=== PATIENT | male | born 1935 ===

== ENCOUNTER 2020-04-10 15:15 | Inpatient (IN) | payer MEDICARE, BC, OTHER ==
[~2020-04-10 15:15] MED LIST: Iopamidol-370 76% 500 ML 1 ML ONE
[2020-04-10] MEDS ORDERED: HYDROmorphone 0.5 MG/0.5 ML SYRINGE ONE (15:48)
--- NOTE | 2020-04-10 15:59 | RAD ---
XR Chest 1 View Portable HISTORY: Shortness of breath COMPARISON: 11/09/2018 FINDINGS: There are changes of median sternotomy. The heart size is normal. The aorta is tortuous. Th e lungs are well expanded without lobar consolidation, pneumothoraces, amina pulmonary edema or pleural effusions. IMPRESSION: No radiographic evidence of acute cardiopulmonary process.
[2020-04-10] MEDS ORDERED: Albuterol 200 PUFF (6.7GM INHALER) ONE (16:32)
[2020-04-10] MEDS ORDERED: Dexamethasone 10 MG/ML VIAL ONE (16:33)
[2020-04-10 16:37] LABS: #Basophils 0.1 thou/uL (0.0-0.2); #Lymphocytes 0.4 thou/uL (1.20-3.40); #Monocytes 0.3 thou/uL (0.11-0.59); #Neutrophils 6.3 thou/uL (1.40-6.50); %Basophils 0.9 % (0.0-1.0); %Eosinophils 0.2 % (0.0-10.0); %Lymphocytes 5.3 % (21.0-51.0); %Monocytes 3.5 % (0.0-10.0); %Neutrophils 90.2 % (42.0-75.0); Hemoglobin 12.2 g/dL (14.0-18.0); Mean Corpuscular HGB CONC 33.8 g/dL (32.0-36.0); Mean Corpuscular Hemoglobin 31.7 pg (27.0-31.0); Mean Corpuscular Volume 93.8 fL (78.0-98.0); Mean Platelet Volume 7.6 fL (7.4-10.4); Platelet Count 179 thou/uL (130-400); RBC Distribution Width 13.7 % (11.5-14.5); Red Blood Cell (RBC) Count 3.84 mill/uL (4.70-6.10); White Blood Cell (WBC) Count 6.9 thou/uL (4.8-10.8)
[2020-04-10 17:02] LABS: ALT (SGPT) 33 U/L (8-55); AST (SGOT) 59 U/L (5-34); Albumin 3.7 g/dL (3.4-4.8); Alkaline Phosphatase 78 U/L (40-110); Anion Gap 16 mmol/L (10-20); BUN (Urea Nitrogen) 49 mg/dL (8.4-25.7); Bilirubin, Total 0.7 mg/dL (0.2-1.2); Calc. Creatinine Clearance 0 mL/min (70-130); Calcium 9.8 mg/dL (7.8-10.44); Carbon Dioxide 22 mmol/L (23-31); Chloride 103 mmol/L (98-107); Estimated GFR-MDRD 43; Globulin 3.2 g/dL (2.4-3.5); Glucose 118 mg/dL (83-110); Potassium 4.5 mmol/L (3.5-5.1); Protein, Total 6.9 g/dL (5.8-8.1); Sodium 136 mmol/L (136-145)
--- NOTE | 2020-04-10 18:13 | CT ---
CT PULMONARY ANGIOGRAM WITH IV CONTRAST AND 3D POSTPROCESSIN04/10/20 HISTORY: Dyspnea. COVID-19 positive. Worsening cough and shortness of breath. FINDINGS: There is good contrast opacification of the pulmonary artery vasculature without filling defects to s uggest pulmonary embolism. There are vascular calcifications without evidence of aneurysmal dilatatio n of the thoracic aorta. There is a 2.3 cm nodule arising from the anterior pole of the right lobe o f the thyroid gland with intrathoracic extension. This would be better evaluated with an ultrasound. No pleural or pericardial effusions are seen. No pneumothoraces are identified. There are scattered patchy ground glass opacities in the lung field s bilaterally. There are degenerative changes in the spine. Upper abdominal tomograms demonstrate a 1 cm cyst in the left lobe of the liver. IMPRESSION: 1. No CT evidence of pulmonary embolism. 2. Findings are consistent with COVID-19 pneumonia. POS: BRIGIDA
[2020-04-10] MEDS ORDERED: Dexamethasone 10 MG in Sodium Chloride 0.9% 50 ML IVPB SCH (21:00)
--- NOTE | 2020-04-10 21:04 | PDOC.HHP ---
Hospitalist HPI - History of Present Illness Dyspnea History of Present Illness: This is an 84-year-old male patient with a history of CAD status post CABG, who was recently diagnosed with COVID about 7 days ago. He started noticing worsening shortness of breath, cough and dyspnea. He denies any chest pain fever, headache, diarrhea, dysuria frequency. Came to the ED for further evaluation. As presentation his troponin was 0.012, BNP 36, he was however requiring up to 4 L of oxygen.. Chest x-ray showed no significant acute changes. His d-dimer was however elevated and he had a CTA which was negative for pulmonary embolism. However there was scattered patchy ground glass infiltrates consistent with COVID In the ED he received hydromorphone, Proventil, Levaquin, Decadron and normal saline. Hospitalist team was consulted to admit. Of note patient's also has COVID and is recovering. He also notes that his son has recovered from COVID. Hospitalist ROS - Review of Systems Constitutional: denies: fever, chills, sweats, weakness Respiratory: reports: cough, shortness of breath, SOB with excertion Cardiovascular: denies: chest pain, palpitations, orthopnea, paroxysmal noc. dyspnea Genitourinary: denies: dysuria, frequency, incontinence, hematuria Neurological: denies: weakness, numbness, incoordination, change in speech - Medication Medications: No known drug allergies. Aspirin 81mg daily Losartan 25mg daily Atorvastatin 80mg daily Allopurinol 300mg daily Metoprolol 25mg daily Hospitalist History - Past Medical History Cardiac: reports: CAD - Family History Other Family History: Lives with family - Social History Activity level: independent ambulation - Exam General - other findings: Patient on oxygen by nasal cannula. No acute distress. Heart - other findings: S1-S2 present and normal. No murmurs gallops or rubs Respiratory: wheezes Respiratory - other findings: Entry appears adequate bilaterally. Extremities: no cyanosis, no edema Hospitalist Results - Labs Result Diagrams: 04/12/20 03:14 04/11/20 16:21 Lab results: WBC 6.9 thou/uL (4.8-10.8) 04/10/20 15:50 Hgb 12.2 g/dL (14.0-18.0) L 04/10/20 15:50 Hct 36.0 % (42.0-52.0) L 04/10/20 15:50 MCV 93.8 fL (78.0-98.0) 04/10/20 15:50 Plt Count 179 thou/uL (130-400) 04/10/20 15:50 Neutrophils % 90.2 % (42.0-75.0) H 04/10/20 15:50 Sodium 136 mmol/L (136-145) 04/10/20 15:50 Potassium 4.5 mmol/L (3.5-5.1) 04/10/20 15:50 Chloride 103 mmol/L (98-107) 04/10/20 15:50 Carbon Dioxide 22 mmol/L (23-31) L 04/10/20 15:50 BUN 49 mg/dL (8.4-25.7) H 04/10/20 15:50 Creatinine 1.55 mg/dL (0.7-1.3) H 04/10/20 15:50 Glucose 118 mg/dL (83-110) H 04/10/20 15:50 Calcium 9.8 mg/dL (7.8-10.44) 04/10/20 15:50 Total Bilirubin 0.7 mg/dL (0.2-1.2) 04/10/20 15:50 AST 59 U/L (5-34) H 04/10/20 15:50 ALT 33 U/L (8-55) 04/10/20 15:50 Alkaline Phosphatase 78 U/L (40-110) 04/10/20 15:50 Troponin I 0.012 ng/mL (< 0.028) 04/10/20 15:50 B-Natriuretic Peptide 36.0 pg/mL (0-100) 04/10/20 15:50 Serum Total Protein 6.9 g/dL (5.8-8.1) 04/10/20 15:50 Albumin 3.7 g/dL (3.4-4.8) 04/10/20 15:50 Hospitalist H&P A/P - Plan Plan: This is an 84-year-old male patient with a history of coronary artery disease status post CABG who presents with worsening shortness of breath with a new diagnosis of COVID. Dyspnea Community-acquired pneumonia versus COVID pneumonia Started on Decadron Consider starting anticoagulation as d-dimer is elevated Continue antibiotics ID consult in a.m. Coronary artery disease Currently asymptomatic continue home meds We will monitor. VTE prophylaxisLovenox
[2020-04-11] MEDS: Guaifenesin DM 100-10/5 ML UDCUP PO PRN ×2 (03:08→20:30)
[2020-04-11] MEDS: Melatonin 3 MG TAB PO PRN (03:09)
[2020-04-11 06:07] LABS: #Lymphocytes 0.3 thou/uL (1.20-3.40); #Monocytes 0.2 thou/uL (0.11-0.59); #Neutrophils 5.8 thou/uL (1.40-6.50); %Basophils 0.6 % (0.0-1.0); %Eosinophils 0.5 % (0.0-10.0); %Lymphocytes 5.4 % (21.0-51.0); %Monocytes 2.7 % (0.0-10.0); %Neutrophils 90.8 % (42.0-75.0); Hemoglobin 12.9 g/dL (14.0-18.0); Mean Corpuscular HGB CONC 30.8 g/dL (32.0-36.0); Mean Corpuscular Volume 94.4 fL (78.0-98.0); Mean Platelet Volume 7.7 fL (7.4-10.4); Platelet Count 120 thou/uL (130-400); RBC Distribution Width 13.9 % (11.5-14.5); Red Blood Cell (RBC) Count 4.43 mill/uL (4.70-6.10); White Blood Cell (WBC) Count 6.4 thou/uL (4.8-10.8)
[2020-04-11 06:19] LABS: Anion Gap 17 mmol/L (10-20); BUN (Urea Nitrogen) 52 mg/dL (8.4-25.7); Calc. Creatinine Clearance 40 mL/min (70-130); Calcium 8.6 mg/dL (7.8-10.44); Carbon Dioxide 17 mmol/L (23-31); Chloride 105 mmol/L (98-107); Estimated GFR-MDRD 44; Glucose 171 mg/dL (83-110); Potassium 4.1 mmol/L (3.5-5.1); Sodium 135 mmol/L (136-145)
[2020-04-11] MEDS ORDERED: cefTRIAXone\\ROCEPHIN 1 GM in Sodium Chloride 0.9% 100 ML IVPB SCH (07:30)
[2020-04-11] MEDS ORDERED: Azithromycin 500 MG in Sodium Chloride 0.9% 250 ML 250 ML IVPB SCH (09:00)
[2020-04-11] MEDS ORDERED: Enoxaparin Sodium 80 MG/0.8 ML SYRINGE SC SCH (09:00)
[2020-04-11] MEDS ORDERED: Enoxaparin Sodium 40 MG/0.4 ML SYRINGE SC SCH (09:00)
[2020-04-11] MEDS: Sodium Chloride 0.9% 1,000 ML IV SCH ×2 (09:42→17:51)
[2020-04-11 11:11] LABS: Hemoglobin A1c 5.5 % (4.0-6.0)
[2020-04-11] MEDS ORDERED: REMDESIVIR (EUA) 200 MG in Sodium Chloride 0.9% 250 ML 210 ML IV SCH (16:30)
[2020-04-11 17:04] LABS: Anion Gap 14 mmol/L (10-20); BUN (Urea Nitrogen) 51 mg/dL (8.4-25.7); Calc. Creatinine Clearance 43 mL/min (70-130); Calcium 8.4 mg/dL (7.8-10.44); Carbon Dioxide 18 mmol/L (23-31); Chloride 107 mmol/L (98-107); Estimated GFR-MDRD 47; Glucose 135 mg/dL (83-110); Potassium 4.2 mmol/L (3.5-5.1); Sodium 135 mmol/L (136-145)
[2020-04-11] MEDS: Enoxaparin Sodium 40 MG/0.4 ML SYRINGE SC SCH (20:21)
--- NOTE | 2020-04-11 21:24 | CON ---
DATE OF CONSULTATION: 04/11/2020 REASON FOR CONSULTATION: COVID pneumonia. HISTORY OF PRESENT ILLNESS: This is 84 years old, first admission to this hospital, has a history of hypertension, coronary artery disease with prior bypass graft surgery, who developed sore throat, general malaise, and cough about 10 days before admission, was tested for COVID positive about 5 days before, and due to progression of dyspnea, he was admitted. His CT of chest showed ground-glass opacities scattered diffusely through the lung haji. The patient has been started on Rocephin, azithromycin, and O2 per nasal cannula at 2.5 L/minute, is saturating at 95%. Currently, Mr. Hill is awake. He has quite a bit of hearing impairment, but he is oriented, follows commands. He states that his illness again started about 10 days before and as noted and denies any headaches, visual symptoms. Sore throat still there, somewhat coughing intermittently, mildly dyspneic. No chest pain. No abdominal pain. No diarrhea. No genitourinary symptoms. No joint symptoms. No neurological symptoms. PAST MEDICAL HISTORY: 1. Coronary artery disease. 2. Hypertension. 3. Hyperlipidemia. 4. Bypass graft surgery x4. ALLERGIES: NONE. MEDICATIONS: He had been on; 1. Lipitor. 2. Losartan. 3. Metoprolol. 4. Aspirin. Now, he is on; 1. Rocephin. 2. Azithromycin. 3. Decadron, was given 1 dose I think. 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 He is never a smoker. Drinks occasionally. . [place] in the area. PHYSICAL EXAMINATION: VITAL SIGNS: He is saturating at 95% with 2.5 L nasal cannula, temperature is normal, BP 120/70, heart rate 68, respiratory rate 18. SKIN: Normal peripheral IV access. He is voiding in the urinal. No lymphadenopathy. HEENT: Ocular movements conjugate. Sclerae white. Nasal passages patent. Oral cavity normal. NECK: Supple. LUNGS: Fairly symmetric air entry with few crackles at the bases. HEART: S1 and S2. Regular rate. No S3 or S4. ABDOMEN: Soft. Not distended or tender. No ascites. No bladder distention. No genital abnormalities. EXTREMITIES: No joint inflammatory activity. No edema. Pulses 1+ in dorsalis pedis. Plantar responses are flexor and he moves all extremities equally. He is awake, oriented, follows commands. Hearing impairment makes a little difficulty interview. LABORATORY DATA: D-dimer 0.94 and 0.89. White cell count 6.4, hemoglobin 12.9, platelets 120,000, neutrophil percentage 90%, and ferritin was 1600. AST 59, creatinine 1.53, GFR at 44. Sodium 135, albumin 3.7. CT with diffuse ground- glass opacities, quite widespread, and more concentrated in lower lung haji. ASSESSMENT: 1. Hypertension. 2. Coronary artery disease. 3. Moderate to severe COVID pneumonia at 10 days of illness. DISCUSSION: The patient will be started on remdesivir and will receive convalescent plasma. Increase the enoxaparin dose to b.i.d. Monitor ferritin, CRP, and D- dimer every day. Decadron 6 mg daily, he is in the middle of the second week and he is going to be at the inflammatory phase of his illness, further deterioration may happen quickly and he may need a high-flow oxygen and even mechanical ventilation in the next few days or he may turn around quickly and he would be able to be discharged in the next few days. We will see how he does in the next 48 hrs. Job ID: [id number] [facility]
--- NOTE | 2020-04-12 00:57 | PDOC.HOSPP ---
- Subjective Encounter Date: 04/11/20 Subjective: Patient was seen and examined in bed. He had a good night. Had mild dyspnea and occasional cough Denies any chest pain - Objective Vital Signs & Weight: Vital Signs (12 hours) Temp Pulse Resp BP Pulse Ox 04/12/20 00:48 97.9 F 92 21 H 91 L 04/11/20 20:20 97.9 F 65 20 103/65 93 L 04/11/20 18:09 98.1 F 95 22 H 127/66 96 Weight Weight 172 lb I&O: 04/10/20 04/11/20 04/12/20 06:59 06:59 06:59 Intake Total 500 1240 Output Total 400 Balance 100 1240 Result Diagrams: 04/12/20 03:14 04/11/20 16:21 Hospitalist ROS - Medication Medications: Active Medications Generic Name Dose Route Start Last Admin Trade Name Freq PRN Reason Stop Dose Admin Enoxaparin Sodium 40 mg 04/11/20 21:00 04/11/20 20:21 Enoxaparin Sodium 40 Mg/0.4 Ml Syringe SC 40 mg BID PATRICK Administration Guaifenesin/Dextromethorphan 15 ml 04/11/20 02:57 04/11/20 20:30 Guaifenesin Dm 100-10/5 Ml Udcup PO 15 ml Q4H PRN Administration Cough Sodium Chloride 1,000 mls @ 100 mls/hr 04/11/20 09:30 04/11/20 17:51 Normal Saline 0.9% IV 1,000 mls .Q10H PATRICK Administration Melatonin 3 mg 04/11/20 02:57 04/11/20 03:09 Melatonin 3 Mg Tab PO 3 mg HS PRN Administration Insomnia - Exam General Appearance: awake alert Heart - other findings: S1-S2 present and normal. No murmurs gallops or rubs. Respiratory - other findings: Reduced air entry bilaterally. Occasional wheezing Gastrointestinal - other findings: Soft, nontender, bowel sounds present and normal. Extremities - other findings: No edema noted. Hosp A/P - Plan 84-year-old male patient with a history of coronary today status post CABG on admission on account of COVID pneumonia Currently being managed by ID. COVID pneumonia Currently on 2 to 3 L oxygen per nasal cannula Plans to tarting on remdesevir, plasma, lovenox, and follow-up labs ID on board. Coronary disease This is stable Asymptomatic Continue monitoring.
[2020-04-12 03:27] LABS: #Basophils 0.1 thou/uL (0.0-0.2); #Lymphocytes 0.6 thou/uL (1.20-3.40); #Monocytes 0.4 thou/uL (0.11-0.59); #Neutrophils 14.2 thou/uL (1.40-6.50); %Basophils 0.4 % (0.0-1.0); %Eosinophils 0.1 % (0.0-10.0); %Lymphocytes 3.7 % (21.0-51.0); %Monocytes 2.7 % (0.0-10.0); %Neutrophils 93.1 % (42.0-75.0); Hemoglobin 11.5 g/dL (14.0-18.0); Mean Corpuscular HGB CONC 33.5 g/dL (32.0-36.0); Mean Corpuscular Hemoglobin 31.5 pg (27.0-31.0); Mean Corpuscular Volume 94.3 fL (78.0-98.0); Mean Platelet Volume 7.4 fL (7.4-10.4); Platelet Count 193 thou/uL (130-400); RBC Distribution Width 13.8 % (11.5-14.5); Red Blood Cell (RBC) Count 3.64 mill/uL (4.70-6.10); White Blood Cell (WBC) Count 15.3 thou/uL (4.8-10.8)
[2020-04-12 03:48] LABS: ALT (SGPT) 52 U/L (8-55); AST (SGOT) 72 U/L (5-34); Albumin 3.2 g/dL (3.4-4.8); Alkaline Phosphatase 70 U/L (40-110); Bilirubin, Direct 0.3 mg/dL (0.1-0.3); Bilirubin, Total 0.4 mg/dL (0.2-1.2)
[2020-04-12] MEDS: Sodium Chloride 0.9% 1,000 ML IV SCH ×3 (04:15→14:50)
[2020-04-12] MEDS: Guaifenesin DM 100-10/5 ML UDCUP PO PRN (09:47)
[2020-04-12] MEDS: Atorvastatin Calcium 40 MG TAB PO SCH (09:48)
[2020-04-12] MEDS: Allopurinol 300 MG TAB PO SCH (09:48)
[2020-04-12] MEDS: Aspirin Chewable 81 MG TAB PO SCH (09:48)
[2020-04-12] MEDS: Dexamethasone 4 mg/ml Vial SLOW IVP SCH (09:48)
[2020-04-12] MEDS: Enoxaparin Sodium 40 MG/0.4 ML SYRINGE SC SCH ×2 (09:48→20:50)
[2020-04-12] MEDS: Losartan 25 MG TAB PO SCH ×2 (09:48→20:53)
--- NOTE | 2020-04-12 12:22 | EKG ---
Test Reason : SOB Blood Pressure : / mmHG Vent. Rate : 094 BPM Atrial Rate : 094 BPM P-R Int : 146 ms QRS Dur : 106 ms QT Int : 338 ms P-R-T Axes : 016 -38 017 degrees QTc Int : 422 ms Normal sinus rhythm Left axis deviation Incomplete right bundle branch block Minimal voltage criteria for LVH, may be normal variant Nonspecific ST and T wave abnormality Abnormal ECG Confirmed by MEGAN FRANKLIN ([id number]), editorial manager AMY GALINDO ([id number]) on 04/12/2020 12:21:53 PM Referred By: Confirmed By:MEGAN FRANKLIN
--- NOTE | 2020-04-12 12:50 | PDOC.HOSPP ---
- Subjective Encounter Date: 04/12/20 Encounter Time: 12:45 Subjective: f/u for COVID-19 with PNA receiving Remdesivir/Dexamethasone/Lovenox/high flow O2 @ 40L/min. Feels better overall but still SOB. - Objective Vital Signs & Weight: Vital Signs (12 hours) Temp Pulse Resp BP Pulse Ox 04/12/20 11:45 98.1 F 69 20 109/61 96 04/12/20 09:45 98.2 F 80 20 136/71 94 L 04/12/20 04:15 98.8 F 82 22 H 135/75 95 04/12/20 02:39 90 L 04/12/20 01:00 28 H 89 L Weight Weight 172 lb I&O: 04/11/20 04/12/20 04/13/20 06:59 06:59 06:59 Intake Total 500 2740 Output Total 400 Balance 100 2740 Result Diagrams: 04/12/20 03:14 04/11/20 16:21 Additional Labs: Microbiology 04/10/20 20:23 Urine voided Urine Culture - Final 04/10/20 18:30 Venous blood - Right Hand Blood Culture - Preliminary NO GROWTH AT 48 HOURS 04/10/20 18:30 Venous blood - Left Hand Blood Culture - Preliminary NO GROWTH AT 48 HOURS Laboratory Tests 04/10/20 04/10/20 04/11/20 15:50 15:50 05:53 D-Dimer 0.94 H Carbon Dioxide 22 L 17 L Creatinine 1.55 H 1.53 H Hemoglobin A1c Ferritin C-Reactive Protein 04/11/20 04/11/20 04/11/20 10:29 10:29 10:29 D-Dimer 0.89 H Carbon Dioxide Creatinine Hemoglobin A1c 5.5 Ferritin 1619.85 H C-Reactive Protein 04/11/20 04/12/20 04/12/20 16:21 03:14 03:14 D-Dimer Carbon Dioxide Creatinine Hemoglobin A1c Ferritin 1624.06 H C-Reactive Protein 7.78 H 6.04 H 04/12/20 03:14 D-Dimer 0.58 H Carbon Dioxide Creatinine Hemoglobin A1c Ferritin C-Reactive Protein Radiology Reviewed by me: Yes (PCXR - bilat infiltrates) Hospitalist ROS - Medication Medications: Active Medications Generic Name Dose Route Start Last Admin Trade Name Freq PRN Reason Stop Dose Admin Allopurinol 300 mg 04/12/20:00 04/12/20 09:48 Allopurinol 300 Mg Tab PO 300 mg DAILY PATRICK Administration Aspirin 81 mg 04/12/20 09:00 04/12/20 09:48 Aspirin Chewable 81 Mg Tab PO 81 mg DAILY PATRICK Administration Atorvastatin Calcium 80 mg 04/12/20 09:00 04/12/20 09:48 Atorvastatin Calcium 40 Mg Tab PO 80 mg DAILY PATRICK Administration Dexamethasone 6 mg 04/12/20 09:00 04/12/20 09:48 Dexamethasone 4 Mg/Ml Vial SLOW IVP 6 mg DAILY PATRICK Administration Enoxaparin Sodium 40 mg 04/11/20 21:00 04/12/20 09:48 Enoxaparin Sodium 40 Mg/0.4 Ml Syringe SC 40 mg BID PATRICK Administration Guaifenesin/Dextromethorphan 15 ml 04/11/20 02:57 04/12/20 09:47 Guaifenesin Dm 100-10/5 Ml Udcup PO 15 ml Q4H PRN Administration Cough Sodium Chloride 1,000 mls @ 100 mls/hr 04/11/20 09:30 04/12/20 11:35 Normal Saline 0.9% IV 1,000 mls .Q10H PATRICK Administration Losartan Potassium 25 mg 04/12/20 09:00 04/12/20 09:48 Losartan 25 Mg Tab PO 25 mg BID PATRICK Administration Melatonin 3 mg 04/11/20 02:57 04/11/20 03:09 Melatonin 3 Mg Tab PO 3 mg HS PRN Administration Insomnia Metoprolol Succinate 25 mg 04/12/20 09:00 04/12/20 09:48 Metoprolol Succinate Xl 25 Mg Tab PO 25 mg DAILY PATRICK Administration - Exam General Appearance: NAD, awake alert Eye: PERRL, anicteric sclera ENT: normocephalic atraumatic, no oropharyngeal lesions Neck: supple, symmetric, no JVD, no thyromegaly, no lymphadenopathy Heart: RRR, no murmur, no gallops, no rubs, normal peripheral pulses Respiratory: no wheezes, tachypneic Respiratory - other findings: diminished in bases bilat Gastrointestinal: soft, non-tender, non-distended, normal bowel sounds, no palpable masses Extremities: no cyanosis, no clubbing, no edema Skin: normal turgor, no lesions Neurological: cranial nerve grossly intact, no new deficit Musculoskeletal: normal tone, normal strength, no muscle wasting Psychiatric: normal affect, A&O x 3 Hosp A/P (1) Pneumonia due to COVID-19 virus Code(s): U07.1 - COVID-19; J12.89 - OTHER VIRAL PNEUMONIA Status: Acute Plan: Continue pulmonary support, Remdesivir/Convalescent Plasma/Lovenox/Dexamethasone/high-flow O2 (2) Acute respiratory failure with hypoxia Code(s): J96.01 - ACUTE RESPIRATORY FAILURE WITH HYPOXIA Status: Acute Plan: High-flow O2 support, Dexamethasone (3) CKD (chronic kidney disease), stage III Code(s): N18.3 - CHRONIC KIDNEY DISEASE, STAGE 3 (MODERATE) Status: Chronic Plan: Avoid nephrotoxic meds and limit contrast exposure (4) CAD (coronary artery disease) Code(s): I25.10 - ATHSCL HEART DISEASE OF [place] CORONARY ARTERY W/O ANG PCTRS Status: Chronic Plan: Chronic, stable, med mgmt - 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
--- NOTE | 2020-04-12 16:09 | RAD ---
ONE VIEW CHEST: 04/12/20 HISTORY: Shortness of breath. COMPARISON: 04/10/20. FINDINGS: There are increased interstitial and slight patchy air space opacity seen within the lungs bilaterall y in a pattern which can be seen with viral pneumonitis such as COVID-19. The interstitial opacities do appear increased compared to prior study. Postoperative changes related to CABG are again noted. Cardiac silhouette is magnified by projection. No pleural effusion, or pneumothorax is evident. No other interval change. IMPRESSION: Worsening interstitial and patchy air space opacities within the lungs bilaterally suggesting worseni ng viral pneumonitis (COVID-19). POS: MANUEL
[2020-04-12] MEDS: REMDESIVIR (EUA) 100 MG in Sodium Chloride 0.9% 250 ML 230 ML IV SCH (17:03)
[2020-04-12] MEDS: Naproxen 500 MG TAB PO SCH (20:53)
[2020-04-12] MEDS: Benzonatate 100 MG CAP PO PRN (20:54)
[2020-04-13] MEDS: Sodium Chloride 0.9% 1,000 ML IV SCH ×3 (01:00→20:26)
[2020-04-13 06:34] LABS: ALT (SGPT) 42 U/L (8-55); AST (SGOT) 46 U/L (5-34); Albumin 2.9 g/dL (3.4-4.8); Alkaline Phosphatase 64 U/L (40-110); Bilirubin, Direct 0.3 mg/dL (0.1-0.3); Bilirubin, Total 0.4 mg/dL (0.2-1.2); Protein, Total 5.3 g/dL (5.8-8.1)
[2020-04-13] MEDS: Allopurinol 300 MG TAB PO SCH (08:57)
[2020-04-13] MEDS: Losartan 25 MG TAB PO SCH ×2 (08:57→20:25)
[2020-04-13] MEDS: Dexamethasone 4 mg/ml Vial SLOW IVP SCH (08:58)
[2020-04-13] MEDS: Atorvastatin Calcium 40 MG TAB PO SCH (08:58)
[2020-04-13] MEDS: Aspirin Chewable 81 MG TAB PO SCH (08:58)
[2020-04-13] MEDS: Loratadine 10 MG TAB PO SCH (08:58)
[2020-04-13] MEDS: Enoxaparin Sodium 40 MG/0.4 ML SYRINGE SC SCH ×2 (08:59→20:25)
--- NOTE | 2020-04-13 14:25 | PDOC.HOSPP ---
- Subjective Encounter Date: 04/13/20 Encounter Time: 14:15 Subjective: f/u for COVID-19 PNA on high flow O2. s/p IV convalescent plasma. Receiving Remdesivir/Lovenox/Dexamethasone. - Objective Vital Signs & Weight: Vital Signs (12 hours) Temp Pulse Resp BP Pulse Ox 04/13/20 12:42 97.8 F 68 18 162/72 H 94 L 04/13/20 08:30 92 L 04/13/20 03:51 92 L 04/13/20 03:22 98.2 F 60 23 H 157/84 H 92 L Weight Weight 172 lb I&O: 04/12/20 04/13/20 04/14/20 06:59 06:59 06:59 Intake Total 2740 3120 Output Total 300 Balance 2740 2820 Result Diagrams: 04/12/20 03:14 04/11/20 16:21 Additional Labs: Microbiology 04/10/20 20:23 Urine voided Urine Culture - Final 04/10/20 18:30 Venous blood - Right Hand Blood Culture - Preliminary NO GROWTH AT 48 HOURS 04/10/20 18:30 Venous blood - Left Hand Blood Culture - Preliminary NO GROWTH AT 48 HOURS Laboratory Tests 04/10/20 04/10/20 04/11/20 15:50 15:50 05:53 D-Dimer 0.94 H Carbon Dioxide 22 L 17 L Creatinine 1.55 H 1.53 H Hemoglobin A1c Ferritin C-Reactive Protein 04/11/20 04/11/20 04/11/20 10:29 10:29 10:29 D-Dimer 0.89 H Carbon Dioxide Creatinine Hemoglobin A1c 5.5 Ferritin 1619.85 H C-Reactive Protein 04/11/20 04/12/20 04/12/20 16:21 03:14 03:14 D-Dimer Carbon Dioxide Creatinine Hemoglobin A1c Ferritin 1624.06 H C-Reactive Protein 7.78 H 6.04 H 04/12/20 03:14 D-Dimer 0.58 H Carbon Dioxide Creatinine Hemoglobin A1c Ferritin C-Reactive Protein Radiology Reviewed by me: Yes (PCXR - worsening infiltrates bilat(04/12/20)) Hospitalist ROS - Medication Medications: Active Medications Generic Name Dose Route Start Last Admin Trade Name Freq PRN Reason Stop Dose Admin Allopurinol 300 mg 04/12/20 09:00 04/13/20 08:57 Allopurinol 300 Mg Tab PO 300 mg DAILY PATRICK Administration Aspirin 81 mg 04/12/20 09:00 04/13/20 08:58 Aspirin Chewable 81 Mg Tab PO 81 mg DAILY PATRICK Administration Atorvastatin Calcium 80 mg 04/12/20 09:00 04/13/20 08:58 Atorvastatin Calcium 40 Mg Tab PO 80 mg DAILY PATRICK Administration Benzonatate 200 mg 04/12/20 12:57 04/12/20 20:54 Benzonatate 100 Mg Cap PO 200 mg Q6H PRN Administration Cough Dexamethasone 6 mg 04/12/20 09:00 04/13/20 08:58 Dexamethasone 4 Mg/Ml Vial SLOW IVP 6 mg DAILY PATRICK Administration Enoxaparin Sodium 40 mg 04/11/20 21:00 04/13/20 08:59 Enoxaparin Sodium 40 Mg/0.4 Ml Syringe SC 40 mg BID PATRICK Administration Guaifenesin/Dextromethorphan 15 ml 04/11/20 02:57 04/12/20 09:47 Guaifenesin Dm 100-10/5 Ml Udcup PO 15 ml Q4H PRN Administration Cough Sodium Chloride 1,000 mls @ 100 mls/hr 04/11/20 09:30 04/13/20 12:45 Normal Saline 0.9% IV 1,000 mls .Q10H PATRICK Administration Remdesivir 100 mg/ Sodium 250 mls @ 250 mls/hr 04/12/20 17:00 04/12/20 17:03 Chloride IV 04/15/20 17:59 250 mls 1700 PATRICK Administration Loratadine 10 mg 04/13/20 09:00 04/13/20 08:58 Loratadine 10 Mg Tab PO 10 mg DAILY PATRICK Administration Losartan Potassium 25 mg 04/12/20 09:00 04/13/20 08:57 Losartan 25 Mg Tab PO 25 mg BID PATRICK Administration Melatonin 3 mg 04/11/20 02:57 04/11/20 03:09 Melatonin 3 Mg Tab PO 3 mg HS PRN Administration Insomnia Metoprolol Succinate 25 mg 04/12/20 09:00 04/13/20 08:58 Metoprolol Succinate Xl 25 Mg Tab PO 25 mg DAILY PATRICK Administration Naproxen 250 mg 04/12/20 21:00 04/12/20 20:53 Naproxen 500 Mg Tab PO 250 mg HS PATRICK Administration - Exam General Appearance: NAD, awake alert Eye: PERRL, anicteric sclera ENT: normocephalic atraumatic, no oropharyngeal lesions Neck: supple, symmetric, no JVD, no thyromegaly, no lymphadenopathy Heart: RRR, no murmur, no gallops, no rubs, normal peripheral pulses Heart - other findings: S1, S2 Respiratory: no wheezes, no rales, no tachypnea Respiratory - other findings: diminished in bilat haji Gastrointestinal: soft, non-tender, non-distended, normal bowel sounds, no palpable masses Extremities: no cyanosis, no clubbing, no edema Skin: normal turgor, no lesions Neurological: cranial nerve grossly intact, no new deficit Musculoskeletal: normal tone, normal strength, no muscle wasting Psychiatric: normal affect, A&O x 3 Hosp A/P (1) Pneumonia due to COVID-19 virus Code(s): U07.1 - COVID-19; J12.89 - OTHER VIRAL PNEUMONIA Status: Acute Plan: Continue Remdesivir/Lovenox/Dexamethasone, s/p convalescent plasma (2) Acute respiratory failure with hypoxia Code(s): J96.01 - ACUTE RESPIRATORY FAILURE WITH HYPOXIA Status: Acute Plan: High-flow O2 @ 40L (3) CKD (chronic kidney disease), stage III Code(s): N18.3 - CHRONIC KIDNEY DISEASE, STAGE 3 (MODERATE) Status: Chronic (4) CAD (coronary artery disease) Code(s): I25.10 - ATHSCL HEART DISEASE OF [place] CORONARY ARTERY W/O ANG PCTRS Status: Chronic - Plan 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
[2020-04-13] MEDS: REMDESIVIR (EUA) 100 MG in Sodium Chloride 0.9% 250 ML 230 ML IV SCH (17:50)
[2020-04-13] MEDS: Naproxen 500 MG TAB PO SCH (20:25)
[2020-04-13] MEDS: Benzonatate 100 MG CAP PO PRN (20:27)
[2020-04-14 06:13] LABS: ALT (SGPT) 46 U/L (8-55); AST (SGOT) 50 U/L (5-34); Albumin 2.8 g/dL (3.4-4.8); Alkaline Phosphatase 68 U/L (40-110); Bilirubin, Direct 0.2 mg/dL (0.1-0.3); Bilirubin, Total 0.5 mg/dL (0.2-1.2); Protein, Total 5.3 g/dL (5.8-8.1)
[2020-04-14] MEDS: Loratadine 10 MG TAB PO SCH (08:17)
[2020-04-14] MEDS: Aspirin Chewable 81 MG TAB PO SCH (08:17)
[2020-04-14] MEDS: Atorvastatin Calcium 40 MG TAB PO SCH (08:17)
[2020-04-14] MEDS: Losartan 25 MG TAB PO SCH ×2 (08:17→19:55)
[2020-04-14] MEDS: Enoxaparin Sodium 40 MG/0.4 ML SYRINGE SC SCH ×2 (08:18→19:55)
[2020-04-14] MEDS: Allopurinol 300 MG TAB PO SCH (08:18)
[2020-04-14] MEDS: Dexamethasone 4 mg/ml Vial SLOW IVP SCH (08:18)
[2020-04-14] MEDS: Sodium Chloride 0.9% 1,000 ML IV SCH (10:59)
--- NOTE | 2020-04-14 14:30 | PDOC.HOSPP ---
- Subjective Encounter Date: 04/14/20 Encounter Time: 14:30 Subjective: f/u COVID-19 PNA on high-flow NC @ 40L/min. Some desaturations noted with anxiety or movement. - Objective Vital Signs & Weight: Vital Signs (12 hours) Temp Pulse Resp BP BP Pulse Ox 04/14/20 11:45 97.7 F 69 22 H 137/78 94 L 04/14/20 08:30 97.6 F 70 20 160/81 H 94 L 04/14/20 08:00 94 L 04/14/20 06:11 97.9 F 59 L 20 175/73 H 96 Weight Weight 172 lb I&O: 04/13/20 04/14/20 04/15/20 06:59 06:59 06:59 Intake Total 3120 2000 Output Total 300 700 Balance 2820 1300 Result Diagrams: 04/12/20 03:14 04/11/20 16:21 Additional Labs: Microbiology 04/10/20 20:23 Urine voided Urine Culture - Final 04/10/20 18:30 Venous blood - Right Hand Blood Culture - Preliminary NO GROWTH AT 48 HOURS 04/10/20 18:30 Venous blood - Left Hand Blood Culture - Preliminary NO GROWTH AT 48 HOURS Laboratory Tests 04/10/20 04/10/20 04/11/20 15:50 15:50 05:53 D-Dimer 0.94 H Carbon Dioxide 22 L 17 L Creatinine 1.55 H 1.53 H Hemoglobin A1c Ferritin C-Reactive Protein 04/11/20 04/11/20 04/11/20 10:29 10:29 10:29 D-Dimer 0.89 H Carbon Dioxide Creatinine Hemoglobin A1c 5.5 Ferritin 1619.85 H C-Reactive Protein 04/11/20 04/12/20 04/12/20 16:21 03:14 03:14 D-Dimer Carbon Dioxide Creatinine Hemoglobin A1c Ferritin 1624.06 H C-Reactive Protein 7.78 H 6.04 H 04/12/20 03:14 D-Dimer 0.58 H Carbon Dioxide Creatinine Hemoglobin A1c Ferritin C-Reactive Protein Hospitalist ROS - Medication Medications: Active Medications Generic Name Dose Route Start Last Admin Trade Name Freq PRN Reason Stop Dose Admin Allopurinol 300 mg 04/12/20 09:00 04/14/20 08:18 Allopurinol 300 Mg Tab PO 300 mg DAILY PATRICK Administration Aspirin 81 mg 04/12/20 09:00 04/14/20 08:17 Aspirin Chewable 81 Mg Tab PO 81 mg DAILY PATRICK Administration Atorvastatin Calcium 80 mg 04/12/20 09:00 04/14/20 08:17 Atorvastatin Calcium 40 Mg Tab PO 80 mg DAILY PATRICK Administration Benzonatate 200 mg 04/12/20 12:57 04/13/20 20:27 Benzonatate 100 Mg Cap PO 200 mg Q6H PRN Administration Cough Dexamethasone 6 mg 04/12/20 09:00 04/14/20 08:18 Dexamethasone 4 Mg/Ml Vial SLOW IVP 6 mg DAILY PATRICK Administration Enoxaparin Sodium 40 mg 04/11/20 21:00 04/14/20 08:18 Enoxaparin Sodium 40 Mg/0.4 Ml Syringe SC 40 mg BID PATRICK Administration Guaifenesin/Dextromethorphan 15 ml 04/11/20 02:57 04/12/20 09:47 Guaifenesin Dm 100-10/5 Ml Udcup PO 15 ml Q4H PRN Administration Cough Sodium Chloride 1,000 mls @ 100 mls/hr 04/11/20 09:30 04/14/20 10:59 Normal Saline 0.9% IV 1,000 mls .Q10H PATRICK Administration Remdesivir 100 mg/ Sodium 250 mls @ 250 mls/hr 04/12/20 17:00 04/13/20 17:50 Chloride IV 04/15/20 17:59 250 mls 1700 PATRICK Administration Loratadine 10 mg 04/13/20 09:00 04/14/20 08:17 Loratadine 10 Mg Tab PO 10 mg DAILY PATRICK Administration Losartan Potassium 25 mg 04/12/20 09:00 04/14/20 08:17 Losartan 25 Mg Tab PO 25 mg BID PATRICK Administration Melatonin 3 mg 04/11/20 02:57 04/11/20 03:09 Melatonin 3 Mg Tab PO 3 mg HS PRN Administration Insomnia Metoprolol Succinate 25 mg 04/12/20 09:00 04/14/20 08:18 Metoprolol Succinate Xl 25 Mg Tab PO 25 mg DAILY PATRICK Administration Naproxen 250 mg 04/12/20 21:00 04/13/20 20:25 Naproxen 500 Mg Tab PO 250 mg HS PATRICK Administration - Exam General Appearance: NAD, awake alert Eye: PERRL, anicteric sclera ENT: normocephalic atraumatic, no oropharyngeal lesions Neck: supple, symmetric, no JVD, no thyromegaly, no lymphadenopathy Heart: RRR, no murmur, no gallops, no rubs, normal peripheral pulses Heart - other findings: S1, S2 Respiratory: CTAB, no rales, no ronchi, no tachypnea Gastrointestinal: soft, non-tender, non-distended, normal bowel sounds, no palpable masses Extremities: no cyanosis, no clubbing, no edema Skin: normal turgor, no lesions Neurological: cranial nerve grossly intact, no new deficit Musculoskeletal: normal tone, normal strength, no muscle wasting Psychiatric: normal affect, A&O x 3 Hosp A/P (1) Pneumonia due to COVID-19 virus Code(s): U07.1 - COVID-19; J12.89 - OTHER VIRAL PNEUMONIA Status: Acute Plan: Continue Remdesivir/Lovenox/Dexamethasone/O2 support (2) Acute respiratory failure with hypoxia Code(s): J96.01 - ACUTE RESPIRATORY FAILURE WITH HYPOXIA Status: Acute Plan: Continue high-flow O2 and wean as clinically indicated (3) CKD (chronic kidney disease), stage III Code(s): N18.3 - CHRONIC KIDNEY DISEASE, STAGE 3 (MODERATE) Status: Chronic Plan: Stable, saline lock IVF's (4) CAD (coronary artery disease) Code(s): I25.10 - ATHSCL HEART DISEASE OF [place] CORONARY ARTERY W/O ANG PCTRS Status: Chronic - Plan 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
--- NOTE | 2020-04-14 17:45 | PRG ---
DATE OF SERVICE: 04/14/2020 SUBJECTIVE: The patient is sitting by the bedside, feeling better. He is able to take deeper breaths. He has no abdominal pain. Still with some anosmia. No diarrhea. Voiding without difficulty. OBJECTIVE: VITAL SIGNS: He has been afebrile. BP 115/68, heart rate 62, respiratory rate 22, O2 saturation 96 at 35 high-flow O2 nasal cannula. LUNGS: With few crackles at the bases, but pretty good respiratory excursions. The upper segments are clear, right and left lung haji. HEART: S1 and S2, regular rate. ABDOMEN: Soft, not distended. EXTREMITIES: No edema. LABORATORY DATA: White cell count 15.3 two days ago, hemoglobin 11, platelets 193. D-dimer is down to 0.58. Ferritin went up to 1624, has not been repeated since. Liver profile is pretty good, the only abnormality is AST at 50. CRP is down to 6.04. ASSESSMENT AND DISCUSSION: Hypertension, coronary artery disease, moderate to severe COVID pneumonia, status post remdesivir and plasma, is currently on Decadron , about 30% improvement thus far. Continue monitoring inflammatory markers. Job ID: [id number] [facility]
[2020-04-14] MEDS: REMDESIVIR (EUA) 100 MG in Sodium Chloride 0.9% 250 ML 230 ML IV SCH (18:15)
[2020-04-14] MEDS: Naproxen 500 MG TAB PO SCH (19:56)
[2020-04-15] MEDS: ALPRAZolam 0.25 MG TAB PO PRN ×3 (03:31→21:02)
[2020-04-15 06:14] LABS: ALT (SGPT) 47 U/L (8-55); AST (SGOT) 44 U/L (5-34); Albumin 2.7 g/dL (3.4-4.8); Alkaline Phosphatase 70 U/L (40-110); Bilirubin, Direct 0.3 mg/dL (0.1-0.3); Bilirubin, Total 0.5 mg/dL (0.2-1.2); Protein, Total 4.9 g/dL (5.8-8.1)
[2020-04-15] MEDS: Dexamethasone 4 mg/ml Vial SLOW IVP SCH (08:29)
[2020-04-15] MEDS: Enoxaparin Sodium 40 MG/0.4 ML SYRINGE SC SCH ×2 (08:29→21:03)
[2020-04-15] MEDS: Atorvastatin Calcium 40 MG TAB PO SCH (08:30)
[2020-04-15] MEDS: Aspirin Chewable 81 MG TAB PO SCH (08:30)
[2020-04-15] MEDS: Losartan 25 MG TAB PO SCH ×2 (08:30→21:02)
[2020-04-15] MEDS: Allopurinol 300 MG TAB PO SCH (08:30)
[2020-04-15] MEDS: Loratadine 10 MG TAB PO SCH (08:30)
[2020-04-15] MEDS ORDERED: Lorazepam 2 MG/ML VIAL ONE (11:34)
--- NOTE | 2020-04-15 15:34 | PDOC.HOSPP ---
- Subjective Encounter Date: 04/15/20 Encounter Time: 15:15 Subjective: f/u for COVID PNA on high-flow NC down to FIO2 35%. Pt becoming increasingly confused, agitated and pulling off NC per nursing. - Objective Vital Signs & Weight: Vital Signs (12 hours) Temp Pulse Resp BP BP Pulse Ox 04/15/20 11:45 63 24 H 128/83 93 L 04/15/20 08:53 92 L 04/15/20 08:52 97.5 F L 92 24 H 126/62 92 L 04/15/20 07:30 91 L Weight Weight 172 lb I&O: 04/14/20 04/15/20 04/16/20 06:59 06:59 06:59 Intake Total 2000 1200 Output Total 700 700 Balance 1300 500 Result Diagrams: 04/12/20 03:14 04/11/20 16:21 Additional Labs: Microbiology 04/10/20 20:23 Urine voided Urine Culture - Final 04/10/20 18:30 Venous blood - Right Hand Blood Culture - Preliminary NO GROWTH AT 48 HOURS 04/10/20 18:30 Venous blood - Left Hand Blood Culture - Preliminary NO GROWTH AT 48 HOURS Laboratory Tests 04/10/20 04/10/20 04/11/20 15:50 15:50 05:53 D-Dimer 0.94 H Carbon Dioxide 22 L 17 L Creatinine 1.55 H 1.53 H Hemoglobin A1c Ferritin C-Reactive Protein 04/11/20 04/11/20 04/11/20 10:29 10:29 10:29 D-Dimer 0.89 H Carbon Dioxide Creatinine Hemoglobin A1c 5.5 Ferritin 1619.85 H C-Reactive Protein 04/11/20 04/12/20 04/12/20 16:21 03:14 03:14 D-Dimer Carbon Dioxide Creatinine Hemoglobin A1c Ferritin 1624.06 H C-Reactive Protein 7.78 H 6.04 H 04/12/20 03:14 D-Dimer 0.58 H Carbon Dioxide Creatinine Hemoglobin A1c Ferritin C-Reactive Protein Hospitalist ROS - Medication Medications: Active Medications Generic Name Dose Route Start Last Admin Trade Name Freq PRN Reason Stop Dose Admin Allopurinol 300 mg 04/12/20 09:00 04/15/20 08:30 Allopurinol 300 Mg Tab PO 300 mg DAILY PATRICK Administration Alprazolam 0.25 mg 04/15/20 03:20 04/15/20 10:48 Alprazolam 0.25 Mg Tab PO 0.25 mg TIDPRN PRN Administration Anxiety Aspirin 81 mg 04/12/20 09:00 04/15/20 08:30 Aspirin Chewable 81 Mg Tab PO 81 mg DAILY PATRICK Administration Atorvastatin Calcium 80 mg 04/12/20 09:00 04/15/20 08:30 Atorvastatin Calcium 40 Mg Tab PO 80 mg DAILY PATRICK Administration Benzonatate 200 mg 04/12/20 12:57 04/13/20 20:27 Benzonatate 100 Mg Cap PO 200 mg Q6H PRN Administration Cough Dexamethasone 6 mg 04/12/20 09:00 04/15/20 08:29 Dexamethasone 4 Mg/Ml Vial SLOW IVP 6 mg DAILY PATRICK Administration Enoxaparin Sodium 40 mg 04/11/20 21:00 04/15/20 08:29 Enoxaparin Sodium 40 Mg/0.4 Ml Syringe SC 40 mg BID PATRICK Administration Guaifenesin/Dextromethorphan 15 ml 04/11/20 02:57 04/12/20 09:47 Guaifenesin Dm 100-10/5 Ml Udcup PO 15 ml Q4H PRN Administration Cough Remdesivir 100 mg/ Sodium 250 mls @ 250 mls/hr 04/12/20 17:00 04/14/20 18:15 Chloride IV 04/15/20 17:59 250 mls 1700 PATRICK Administration Loratadine 10 mg 04/13/20 09:00 04/15/20 08:30 Loratadine 10 Mg Tab PO 10 mg DAILY PATRICK Administration Losartan Potassium 25 mg 04/12/20 09:00 04/15/20 08:30 Losartan 25 Mg Tab PO 25 mg BID PATRICK Administration Melatonin 3 mg 04/11/20 02:57 04/11/20 03:09 Melatonin 3 Mg Tab PO 3 mg HS PRN Administration Insomnia Metoprolol Succinate 25 mg 04/12/20 09:00 04/15/20 08:30 Metoprolol Succinate Xl 25 Mg Tab PO 25 mg DAILY PATRICK Administration Naproxen 250 mg 04/12/20 21:00 04/14/20 19:56 Naproxen 500 Mg Tab PO 250 mg HS PATRICK Administration - Exam General Appearance: ill appearing General - other findings: responds to questions slowly Eye: PERRL, anicteric sclera ENT: normocephalic atraumatic, no oropharyngeal lesions Neck: supple, symmetric, no JVD, no thyromegaly, no lymphadenopathy Heart: RRR, no gallops, no rubs, normal peripheral pulses Heart - other findings: S1, S2 Respiratory: no wheezes, rales, tachypneic Respiratory - other findings: diminished in bases bilat Gastrointestinal: soft, non-tender, non-distended, normal bowel sounds, no palpable masses Extremities: no cyanosis, no clubbing, no edema Skin: normal turgor, no lesions Neurological: cranial nerve grossly intact, no new deficit Musculoskeletal: normal tone, generalized weakness Psychiatric: oriented to person, oriented to place, flat affect Psychiatric - other findings: agitated Hosp A/P (1) Pneumonia due to COVID-19 virus Code(s): U07.1 - COVID-19; J12.89 - OTHER VIRAL PNEUMONIA Status: Acute Plan: s/p convalescent plasma/Remdesivir, continue Dexamethasone/O2 via high-flow NC (2) Acute respiratory failure with hypoxia Code(s): J96.01 - ACUTE RESPIRATORY FAILURE WITH HYPOXIA Status: Acute Plan: Increase high-flow to 60L/min NC, titrate to clinical response, Xanax 0.25mg TID PRN (3) CKD (chronic kidney disease), stage III Code(s): N18.3 - CHRONIC KIDNEY DISEASE, STAGE 3 (MODERATE) Status: Chronic (4) CAD (coronary artery disease) Code(s): I25.10 - ATHSCL HEART DISEASE OF [place] CORONARY ARTERY W/O ANG PCTRS Status: Chronic - Plan plan discussed w/ family, PT/OT, 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
[2020-04-15] MEDS: REMDESIVIR (EUA) 100 MG in Sodium Chloride 0.9% 250 ML 230 ML IV SCH (16:35)
[2020-04-15] MEDS ORDERED: Lorazepam 2 MG/ML VIAL SLOW IVP SCH (17:00)
[2020-04-15] MEDS: Melatonin 3 MG TAB PO PRN (21:02)
[2020-04-15] MEDS: Naproxen 500 MG TAB PO SCH (21:03)
[2020-04-16] MEDS: Losartan 25 MG TAB PO SCH ×2 (08:53→21:28)
[2020-04-16] MEDS: Atorvastatin Calcium 40 MG TAB PO SCH (08:53)
[2020-04-16] MEDS: Aspirin Chewable 81 MG TAB PO SCH (08:53)
[2020-04-16] MEDS: Loratadine 10 MG TAB PO SCH (08:53)
[2020-04-16] MEDS: Dexamethasone 4 mg/ml Vial SLOW IVP SCH (08:54)
[2020-04-16] MEDS: Allopurinol 300 MG TAB PO SCH (08:54)
[2020-04-16] MEDS: Enoxaparin Sodium 40 MG/0.4 ML SYRINGE SC SCH ×2 (08:54→20:55)
--- NOTE | 2020-04-16 09:45 | RAD ---
Portable frontal chest radiograph: 04/16/2020 COMPARISON: 04/12/2020 HISTORY: Covid infection, reevaluate pulmonary parenchymal infiltrates FINDINGS: Coarse increased linear interstitial densities persist, left greater than right. Superimpos ed airspace disease/groundglass opacity noted within the left lung base, stable as well. Heart and mediastinal contours are unchanged. Stable midline sternotomy wires and mediastinal clips. No pneumot horax seen. [place]: Stable appearance of the chest as above.
--- NOTE | 2020-04-16 10:19 | PDOC.HOSPP ---
- Subjective Encounter Date: 04/16/20 Encounter Time: 10:15 Subjective: f/u for COVID PNA on high-flow NC @ 60L/min receiving Dexamethasone/Lovenox and completing convalescent plasma/Remdesivir. Less confused this am. - Objective Vital Signs & Weight: Vital Signs (12 hours) Temp Pulse Resp BP BP Pulse Ox 04/16/20 08:00 99.0 F 102 H 20 129/75 95 04/15/20 23:11 98.6 F 69 16 118/67 Weight Weight 172 lb I&O: 04/15/20 04/16/20 04/17/20 06:59 06:59 06:59 Intake Total 1200 730 Output Total 700 Balance 500 730 Result Diagrams: 04/12/20 03:14 04/11/20 16:21 Additional Labs: Microbiology 04/10/20 20:23 Urine voided Urine Culture - Final 04/10/20 18:30 Venous blood - Right Hand Blood Culture - Preliminary NO GROWTH AT 48 HOURS 04/10/20 18:30 Venous blood - Left Hand Blood Culture - Preliminary NO GROWTH AT 48 HOURS Laboratory Tests 04/10/20 04/10/20 04/11/20 15:50 15:50 05:53 D-Dimer 0.94 H Carbon Dioxide 22 L 17 L Creatinine 1.55 H 1.53 H Hemoglobin A1c Ferritin C-Reactive Protein 04/11/20 04/11/20 04/11/20 10:29 10:29 10:29 D-Dimer 0.89 H Carbon Dioxide Creatinine Hemoglobin A1c 5.5 Ferritin 1619.85 H C-Reactive Protein 04/11/20 04/12/20 04/12/20 16:21 03:14 03:14 D-Dimer Carbon Dioxide Creatinine Hemoglobin A1c Ferritin 1624.06 H C-Reactive Protein 7.78 H 6.04 H 04/12/20 03:14 D-Dimer 0.58 H Carbon Dioxide Creatinine Hemoglobin A1c Ferritin C-Reactive Protein Laboratory Tests 04/15/20 04/15/20 04/16/20 05:34 05:34 09:01 D-Dimer Ferritin 655.96 H C-Reactive Protein 1.53 H 2.85 H 04/16/20 04/16/20 09:01 09:01 D-Dimer 0.51 H Ferritin 550.12 H C-Reactive Protein Radiology Reviewed by me: Yes (PCXR - stable infiltrates, no progression) Hospitalist ROS - Medication Medications: Active Medications Generic Name Dose Route Start Last Admin Trade Name Freq PRN Reason Stop Dose Admin Allopurinol 300 mg 04/12/20 09:00 04/16/20 08:54 Allopurinol 300 Mg Tab PO 300 mg DAILY PATRICK Administration Alprazolam 0.25 mg 04/15/20 03:20 04/15/20 21:02 Alprazolam 0.25 Mg Tab PO 0.25 mg TIDPRN PRN Administration Anxiety Aspirin 81 mg 04/12/20 09:00 04/16/20 08:53 Aspirin Chewable 81 Mg Tab PO 81 mg DAILY PATRICK Administration Atorvastatin Calcium 80 mg 04/12/20 09:00 04/16/20 08:53 Atorvastatin Calcium 40 Mg Tab PO 80 mg DAILY PATRICK Administration Benzonatate 200 mg 04/12/20 12:57 04/13/20 20:27 Benzonatate 100 Mg Cap PO 200 mg Q6H PRN Administration Cough Dexamethasone 6 mg 04/12/20 09:00 04/16/20 08:54 Dexamethasone 4 Mg/Ml Vial SLOW IVP 6 mg DAILY PATRICK Administration Enoxaparin Sodium 40 mg 04/11/20 21:00 04/16/20 08:54 Enoxaparin Sodium 40 Mg/0.4 Ml Syringe SC 40 mg BID PATRICK Administration Guaifenesin/Dextromethorphan 15 ml 04/11/20 02:57 04/12/20 09:47 Guaifenesin Dm 100-10/5 Ml Udcup PO 15 ml Q4H PRN Administration Cough Loratadine 10 mg 04/13/20 09:00 04/16/20 08:53 Loratadine 10 Mg Tab PO 10 mg DAILY PATRICK Administration Losartan Potassium 25 mg 04/12/20 09:00 04/16/20 08:53 Losartan 25 Mg Tab PO 25 mg BID PATRICK Administration Melatonin 3 mg 04/11/20 02:57 04/15/20 21:02 Melatonin 3 Mg Tab PO 3 mg HS PRN Administration Insomnia Metoprolol Succinate 25 mg 04/12/20 09:00 04/16/20 08:53 Metoprolol Succinate Xl 25 Mg Tab PO 25 mg DAILY PATRICK Administration Naproxen 250 mg 04/12/20 21:00 04/15/20 21:03 Naproxen 500 Mg Tab PO 250 mg HS PATRICK Administration - Exam General Appearance: awake alert, ill appearing General - other findings: responsive to questions Eye: PERRL, anicteric sclera ENT: normocephalic atraumatic, no oropharyngeal lesions Neck: supple, symmetric, no JVD, no thyromegaly, no lymphadenopathy Heart: RRR, no gallops, no rubs, normal peripheral pulses Heart - other findings: S1, S2 Respiratory: CTAB, no rales, tachypneic Respiratory - other findings: diminished in bases Gastrointestinal: soft, non-tender, non-distended, normal bowel sounds, no palpable masses Extremities: no cyanosis, no clubbing, no edema Skin: normal turgor, no lesions Neurological: cranial nerve grossly intact, no new deficit Musculoskeletal: normal tone, generalized weakness Psychiatric: oriented to person, oriented to place Hosp A/P (1) Pneumonia due to COVID-19 virus Code(s): U07.1 - COVID-19; J12.89 - OTHER VIRAL PNEUMONIA Status: Acute Plan: Slow progress, continue high-flow O2 @ 60L/min, add Solumedrol 80mg IV q12h, continue Lovenox, s/p plasma/Remdesivir, consult Pulmonology service for any further recommendations (2) Acute respiratory failure with hypoxia Code(s): J96.01 - ACUTE RESPIRATORY FAILURE WITH HYPOXIA Status: Acute Plan: See above #1 (3) CKD (chronic kidney disease), stage III Code(s): N18.3 - CHRONIC KIDNEY DISEASE, STAGE 3 (MODERATE) Status: Chronic (4) CAD (coronary artery disease) Code(s): I25.10 - ATHSCL HEART DISEASE OF [place] CORONARY ARTERY W/O ANG PCTRS Status: Chronic - Plan 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
--- NOTE | 2020-04-16 10:34 | PRG ---
DATE OF SERVICE: SUBJECTIVE: The patient is sitting in bed. He is in restraints because of repeated attempts at removing his IV and O2 nasal cannula. He seems to be oriented. He knows he is in [place], he knows the year, pretty rapid response to my question, follows commands. He has some dyspnea. He denies any pain. He is voiding in the urinal. OBJECTIVE: LUNGS: With fairly symmetric clear breath sounds. HEART: S1 and S2, regular rate. ABDOMEN: Soft, not distended. EXTREMITIES: He moves extremities equally. There is no edema. NECK: No jugular vein distention. LABORATORY DATA: The last WBC count 15.3, hemoglobin 11, platelets 193 with 93% neutrophils. D-dimer is down to 0.51 and ferritin is 550, which is down from admission. CRP went down to 1.53 and now is 2.85, still below the admission value. His creatinine was 1.55 on admission, it was at 1.42 on April 11. Liver function has remained within normal limits except for mild elevation in AST. Repeat chest x-ray shows increased linear interstitial densities, left greater than right. Ground-glass opacity, left lung base. Stable findings compared with previous. He is saturating at 93 with 60 high-flow nasal cannula administration. ASSESSMENT AND DISCUSSION: Hypertension, coronary artery disease, moderate to severe COVID pneumonia, improvement in markers, but worsening O2 saturations. Some element of delirium and agitation. Current finishing off remdesivir. He received convalescent plasma and is on Decadron and may consider transferring to a higher level of care at [facility] and also pulmonary consultation potential for the duration and need for mechanical ventilation. Job ID: [id number]
[2020-04-16] MEDS ORDERED: methylPREDNISolone Sod Succ/PF 125 MG/2 ML VIAL IVP SCH (10:45)
[2020-04-16] MEDS: Naproxen 500 MG TAB PO SCH (20:55)
[2020-04-16] MEDS: ALPRAZolam 0.25 MG TAB PO SCH (20:56)
[2020-04-16] MEDS: methylPREDNISolone Sod Succ/PF 125 MG/2 ML VIAL IVP SCH (20:56)
--- NOTE | 2020-04-17 01:06 | CON ---
DATE OF CONSULTATION: 04/16/2020 HISTORY OF PRESENT ILLNESS: Mr. Hill is a pleasant 84-year-old male. Two Fridays ago, he was diagnosed with COVID. He was admitted here on the with complaints of shortness of breath. I was consulted today over concerns that maybe he was getting worse. He became confused last night and required restraints. He was transferred to the intermediate care unit. When I saw him, he was completely alert and in no distress. He had a high-flow cannula on and I actually had to wake him up from a nap. PAST MEDICAL HISTORY: Remarkable for: 1. History of coronary artery disease with bypass surgery a few years back. 2. History of hypertension. 3. Lipid disorder. 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 He is a nonsmoker, drinks occasionally. His is living at the [place] at [facility], apparently has some memory issues. ALLERGIES: HE IS NOT ALLERGIC TO ANYTHING. MEDICATIONS: Have been reviewed. PHYSICAL EXAMINATION: GENERAL: He is in no distress. VITAL SIGNS: Oximetry was 100% when I was in the room. Blood pressure 117/77, heart rate 66. Intake and output are not recorded. HEAD AND NECK: Unremarkable. LUNGS: Remarkable for crackles at his lung bases. HEART: Regular rhythm. No S3. Sternum is well healed. ABDOMEN: Soft and nontender. EXTREMITIES: Without clubbing, cyanosis, or edema. NEURO: Nonfocal. LABORATORY DATA: White count 15.3, hemoglobin 11.5, platelets 193. His C- reactive protein is 2.8, albumin is 2.7. Chest x-ray is consistent with pneumonia from COVID. Chest x-ray has not changed. IMPRESSION: COVID pneumonia, status post convalescent plasma, remdesivir, on steroids. He is on a baby aspirin. Alprazolam has been started. His current dose of anticoagulants might be increased if he starts declining, but the dosing currently is reasonable in my opinion. He is also on steroids, was switched to Solu-Medrol today. I will be happy to follow along with the other physicians caring for him. I contacted his son by phone. There is an acquaintance of mine and updated him. He looks very comfortable at this point in time and hopefully, he will never get to a point we have to even talk about intubation. TIME SPENT: This is a 70-minute consult, 50% of the time was spent on the unit coordinating care. Job ID: [id number] [facility]
[2020-04-17] MEDS: Loratadine 10 MG TAB PO SCH (09:01)
[2020-04-17] MEDS: Atorvastatin Calcium 40 MG TAB PO SCH (09:01)
[2020-04-17] MEDS: Losartan 25 MG TAB PO SCH ×2 (09:01→20:33)
[2020-04-17] MEDS: Aspirin Chewable 81 MG TAB PO SCH (09:02)
[2020-04-17] MEDS: Enoxaparin Sodium 40 MG/0.4 ML SYRINGE SC SCH ×2 (09:02→20:33)
[2020-04-17] MEDS: ALPRAZolam 0.25 MG TAB PO SCH ×4 (09:02→20:33)
[2020-04-17] MEDS: Allopurinol 300 MG TAB PO SCH (09:02)
[2020-04-17] MEDS: methylPREDNISolone Sod Succ/PF 125 MG/2 ML VIAL IVP SCH ×2 (09:03→20:34)
--- NOTE | 2020-04-17 11:18 | PDOC.HOSPP ---
- Subjective Encounter Date: 04/17/20 Encounter Time: 11:15 Subjective: f/u for COVID PNA on high-flow O2 @ 60L/min. No AMS reported or need for wrist restraints. No BM in 3-4 days. - Objective Vital Signs & Weight: Vital Signs (12 hours) Temp Pulse Ox 04/17/20 08:00 96 04/17/20 07:30 98 F 04/17/20 07:21 99 04/17/20 04:00 98.1 F 04/17/20 00:05 97.8 F Weight Weight 172 lb Most Recent Monitor Data Heart Rate from ECG 87 NIBP 120/65 NIBP BP-Mean 83 Respiration from ECG 28 SpO2 96 I&O: 04/16/20 04/17/20 04/18/20 06:59 06:59 06:59 Intake Total 730 810 Output Total 1040 250 Balance 730 -230 -250 Result Diagrams: 04/12/20 03:14 04/11/20 16:21 Additional Labs: Microbiology 04/10/20 20:23 Urine voided Urine Culture - Final 04/10/20 18:30 Venous blood - Right Hand Blood Culture - Preliminary NO GROWTH AT 48 HOURS 04/10/20 18:30 Venous blood - Left Hand Blood Culture - Preliminary NO GROWTH AT 48 HOURS Laboratory Tests 04/10/20 04/10/20 04/11/20 15:50 15:50 05:53 D-Dimer 0.94 H Carbon Dioxide 22 L 17 L Creatinine 1.55 H 1.53 H Hemoglobin A1c Ferritin C-Reactive Protein 04/11/20 04/11/20 04/11/20 10:29 10:29 10:29 D-Dimer 0.89 H Carbon Dioxide Creatinine Hemoglobin A1c 5.5 Ferritin 1619.85 H C-Reactive Protein 04/11/20 04/12/20 04/12/20 16:21 03:14 03:14 D-Dimer Carbon Dioxide Creatinine Hemoglobin A1c Ferritin 1624.06 H C-Reactive Protein 7.78 H 6.04 H 04/12/20 04/15/20 04/15/20 03:14 05:34 05:34 D-Dimer 0.58 H Carbon Dioxide Creatinine Hemoglobin A1c Ferritin 655.96 H C-Reactive Protein 1.53 H 04/16/20 04/16/20 04/16/20 09:01 09:01 09:01 D-Dimer 0.51 H Carbon Dioxide Creatinine Hemoglobin A1c Ferritin 550.12 H C-Reactive Protein 2.85 H EKG Reviewed by me: Yes (Tele - SR) Hospitalist ROS - Medication Medications: Active Medications Generic Name Dose Route Start Last Admin Trade Name Freq PRN Reason Stop Dose Admin Allopurinol 300 mg 04/12/20 09:00 04/17/20 09:02 Allopurinol 300 Mg Tab PO 300 mg DAILY PATRICK Administration Alprazolam 0.25 mg 04/16/20 21:00 04/17/20 09:02 Alprazolam 0.25 Mg Tab PO 0.25 mg BID PATRICK Administration Aspirin 81 mg 04/12/20 09:00 04/17/20 09:02 Aspirin Chewable 81 Mg Tab PO 81 mg DAILY PATRICK Administration Atorvastatin Calcium 80 mg 04/12/20 09:00 04/17/20 09:01 Atorvastatin Calcium 40 Mg Tab PO 80 mg DAILY PATRICK Administration Benzonatate 200 mg 04/12/20 12:57 04/13/20 20:27 Benzonatate 100 Mg Cap PO 200 mg Q6H PRN Administration Cough Enoxaparin Sodium 40 mg 04/11/20 21:00 04/17/20 09:02 Enoxaparin Sodium 40 Mg/0.4 Ml Syringe SC 40 mg BID PATRICK Administration Guaifenesin/Dextromethorphan 15 ml 04/11/20 02:57 04/12/20 09:47 Guaifenesin Dm 100-10/5 Ml Udcup PO 15 ml Q4H PRN Administration Cough Loratadine 10 mg 04/13/20 09:00 04/17/20 09:01 Loratadine 10 Mg Tab PO 10 mg DAILY PATRICK Administration Losartan Potassium 25 mg 04/12/20 09:00 04/17/20 09:01 Losartan 25 Mg Tab PO 25 mg BID PATRICK Administration Melatonin 3 mg 04/11/20 02:57 04/15/20 21:02 Melatonin 3 Mg Tab PO 3 mg HS PRN Administration Insomnia Methylprednisolone Sodium Succinate 80 mg 04/16/20 21:00 04/17/20 09:03 Methylprednisolone Sod Succ/Pf 125 Mg/2 Ml Vial IVP 80 mg BID PATRICK Administration Metoprolol Succinate 25 mg 04/12/20 09:00 04/17/20 09:02 Metoprolol Succinate Xl 25 Mg Tab PO 25 mg DAILY PATRICK Administration Naproxen 250 mg 04/12/20 21:00 04/16/20 20:55 Naproxen 500 Mg Tab PO 250 mg HS PATRICK Administration - Exam General Appearance: NAD, awake alert Eye: PERRL, anicteric sclera ENT: normocephalic atraumatic, no oropharyngeal lesions Neck: supple, symmetric, no JVD, no thyromegaly, no lymphadenopathy Heart: RRR, no gallops, no rubs, normal peripheral pulses Heart - other findings: S1, S2 Respiratory: tachypneic Respiratory - other findings: diminished in bases Gastrointestinal: soft, non-tender, non-distended, normal bowel sounds, no palpable masses Extremities: no cyanosis, no clubbing, no edema Skin: normal turgor, no lesions Neurological: cranial nerve grossly intact, no new deficit Musculoskeletal: normal tone, generalized weakness Psychiatric: normal affect, A&O x 3 Hosp A/P (1) Pneumonia due to COVID-19 virus Code(s): U07.1 - COVID-19; J12.89 - OTHER VIRAL PNEUMONIA Status: Acute Plan: Continue Solumedrol/Lovenox/High-flow O2, s/p Remdesivir/plasma (2) Acute respiratory failure with hypoxia Code(s): J96.01 - ACUTE RESPIRATORY FAILURE WITH HYPOXIA Status: Acute Plan: Continue high-flow O2, wean as clinically indicated (3) CKD (chronic kidney disease), stage III Code(s): N18.3 - CHRONIC KIDNEY DISEASE, STAGE 3 (MODERATE) Status: Chronic (4) CAD (coronary artery disease) Code(s): I25.10 - ATHSCL HEART DISEASE OF [place] CORONARY ARTERY W/O ANG PCTRS Status: Chronic - Plan 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
--- NOTE | 2020-04-17 11:57 | PRG ---
DATE OF SERVICE: 04/17/2020 SUBJECTIVE: Mr. Hill is a little agitated this morning. He does not know why he is in the hospital. OBJECTIVE: VITAL SIGNS: He is afebrile. Heart rates in the 90s, blood pressure 120/65, respiratory rate is in the 20s. He has no signs of muscle fatigue. LUNGS: Remarkable for crackles at his bases. HEART: Regular rhythm. ABDOMEN: Soft. EXTREMITIES: Without edema. LABORATORY DATA: He has no recent lab on him. His C-reactive protein is 3.9. He needs a CBC and chem-7 in the morning. I would probably recommend increasing his xanax to three or four times a day, may do better. He is much more cooperative after xanax when I saw him yesterday. He will continue to follow along with the other physicians . I do not feel he needs noninvasive ventilation. I feel he needs intubation. wean his FiO2 as low as possible. Job ID: [id number]
[2020-04-17] MEDS ORDERED: Senokot S 8.6-50 MG TAB PO SCH (12:15)
[2020-04-17] MEDS: Naproxen 500 MG TAB PO SCH (20:34)
[2020-04-17] MEDS: Senokot S 8.6-50 MG TAB PO SCH (20:35)
[2020-04-18 04:27] LABS: Anion Gap 13 mmol/L (10-20); BUN (Urea Nitrogen) 96 mg/dL (8.4-25.7); Calc. Creatinine Clearance 47 mL/min (70-130); Calcium 8.1 mg/dL (7.8-10.44); Carbon Dioxide 16 mmol/L (23-31); Chloride 116 mmol/L (98-107); Estimated GFR-MDRD 53; Glucose 170 mg/dL (83-110); Potassium 4.7 mmol/L (3.5-5.1); Sodium 140 mmol/L (136-145)
[2020-04-18 04:29] LABS: Band 5 % (5-11); Hemoglobin 7.3 g/dL (14.0-18.0); Lymphocytes 7 % (21-51); MDiff Complete? YES; Mean Corpuscular HGB CONC 34.5 g/dL (32.0-36.0); Mean Corpuscular Hemoglobin 32.7 pg (27.0-31.0); Mean Corpuscular Volume 94.7 fL (78.0-98.0); Mean Platelet Volume 7.9 fL (7.4-10.4); Metamyelocyte 3 % (0-0); Monocytes 2 % (0-10); Neutrophil 83 % (42-75); Nucleated RBC 3 % (0); Platelet Count 426 thou/uL (130-400); Platelet Morphology Comment Appears Increased; RBC Distribution Width 14.5 % (11.5-14.5); Red Blood Cell (RBC) Count 2.23 mill/uL (4.70-6.10); White Blood Cell (WBC) Count 20.6 thou/uL (4.8-10.8)
[2020-04-18] MEDS: Loratadine 10 MG TAB PO SCH (10:58)
[2020-04-18] MEDS: ALPRAZolam 0.25 MG TAB PO SCH ×3 (10:58→19:30)
[2020-04-18] MEDS: Aspirin Chewable 81 MG TAB PO SCH (10:58)
[2020-04-18] MEDS: Atorvastatin Calcium 40 MG TAB PO SCH (10:58)
[2020-04-18] MEDS: Senokot S 8.6-50 MG TAB PO SCH (10:58)
[2020-04-18] MEDS: Losartan 25 MG TAB PO SCH (10:58)
[2020-04-18] MEDS: methylPREDNISolone Sod Succ/PF 125 MG/2 ML VIAL IVP SCH ×2 (10:59→20:59)
[2020-04-18] MEDS: Allopurinol 300 MG TAB PO SCH (10:59)
[2020-04-18] MEDS: Enoxaparin Sodium 40 MG/0.4 ML SYRINGE SC SCH ×2 (11:00→20:59)
--- NOTE | 2020-04-18 15:18 | PDOC.HOSPP ---
- Subjective Encounter Date: 04/18/20 Encounter Time: 10:00 Subjective: Patient was seen and examined in bed. Was generally confused and oriented only to self. Was currently on Vapotherm. Transferred to the ICU a day ago. No acute events overnight besides being confused. - Objective Vital Signs & Weight: Vital Signs (12 hours) Pulse Ox 04/18/20 08:00 93 L Weight Weight 172 lb Most Recent Monitor Data Heart Rate from ECG 87 NIBP 91/50 NIBP BP-Mean 63 Respiration from ECG 20 SpO2 96 I&O: 04/17/20 04/18/20 04/19/20 06:59 06:59 06:59 Intake Total 810 1230 Output Total 1040 1398 Balance -230 -168 Result Diagrams: 04/18/20 18:36 04/18/20 18:36 Hospitalist ROS - Medication Medications: Active Medications Generic Name Dose Route Start Last Admin Trade Name Freq PRN Reason Stop Dose Admin Allopurinol 300 mg 04/12/20 09:00 04/18/20 10:59 Allopurinol 300 Mg Tab PO 300 mg DAILY PATRICK Administration Alprazolam 0.25 mg 04/17/20 13:00 04/18/20 13:48 Alprazolam 0.25 Mg Tab PO 0.25 mg QID PATRICK Administration Aspirin 81 mg 04/12/20 09:00 04/18/20 10:58 Aspirin Chewable 81 Mg Tab PO 81 mg DAILY PATRICK Administration Atorvastatin Calcium 80 mg 04/12/20 09:00 04/18/20 10:58 Atorvastatin Calcium 40 Mg Tab PO 80 mg DAILY PATRICK Administration Benzonatate 200 mg 04/12/20 12:57 04/13/20 20:27 Benzonatate 100 Mg Cap PO 200 mg Q6H PRN Administration Cough Enoxaparin Sodium 40 mg 04/11/20 21:00 04/18/20 11:00 Enoxaparin Sodium 40 Mg/0.4 Ml Syringe SC 40 mg BID PATRICK Administration Guaifenesin/Dextromethorphan 15 ml 04/11/20 02:57 04/12/20 09:47 Guaifenesin Dm 100-10/5 Ml Udcup PO 15 ml Q4H PRN Administration Cough Loratadine 10 mg 04/13/20 09:00 04/18/20 10:58 Loratadine 10 Mg Tab PO 10 mg DAILY PATRICK Administration Losartan Potassium 25 mg 04/12/20 09:00 04/18/20 10:58 Losartan 25 Mg Tab PO 25 mg BID PATRICK Administration Methylprednisolone Sodium Succinate 80 mg 04/16/20 21:00 04/18/20 10:59 Methylprednisolone Sod Succ/Pf 125 Mg/2 Ml Vial IVP 80 mg BID PATRICK Administration Metoprolol Succinate 25 mg 04/12/20 09:00 04/18/20 10:59 Metoprolol Succinate Xl 25 Mg Tab PO 25 mg DAILY PATRICK Administration Naproxen 250 mg 04/12/20 21:00 04/17/20 20:34 Naproxen 500 Mg Tab PO 250 mg HS PATRICK Administration Senna/Docusate Sodium 1 tab 04/17/20 21:00 04/18/20 10:58 Senokot S 8.6-50 Mg Tab PO 1 tab BID PATRICK Administration - Exam General - other findings: Patient in bed, confused. On Vapotherm. Heart - other findings: S1-S2 present and normal. No murmurs gallops or rubs. Respiratory - other findings: Decreased air entry bilaterally. Coarse breath sounds basally. Gastrointestinal - other findings: Soft, nontender. Bowel sounds present Extremities - other findings: No edema noted Psychiatric - other findings: Oriented to self. Not place and time. Generally confused Hosp A/P - Plan This is a 84-year-old male patient with a history of coronary disease, CKD admitted on account of cough with pneumonia. Is currently transferred to IMCU for close monitoring on high flow oxygen. He is generally confused of the moment likely delirious. ID and pulmonology following. Pneumonia secondary to covid Continue on Lovenox, Solu-Medrol [id number] Received plasma Monitor d-dimer/ferritin/CRP Embedded Engineer/ID following. Acute hypoxic respiratory failure Secondary to covid pneumonia Continue on oxygen therapyon high flow oxygen at the moment Pulmonology following. CKD stage III Currently stable Continue monitoring. Carotid artery disease Status post CABG Continue aspirin and statins Delirium Likely to long ICU stay Could also be due to complication of COVID Continue monitoring PRN Xanax To consider PRN Zyprexa as well VTE prophylaxistherapeutic on Lovenox
--- NOTE | 2020-04-18 16:04 | PRG ---
DATE OF SERVICE: 04/18/2020 SUBJECTIVE: The patient is in the IMCU. He is still very encephalopathic, agitated, had to be restrained again, and no diarrhea. His O2 saturations are ranging from 91% to 98%. He attempts to remove his nasal cannula from time to time. He is still on high-flow O2 at 60. OBJECTIVE: HEENT: The pupils are constricted. LUNGS: Symmetric air entry, a few crackles. HEART: S1 and S2, regular rate. ABDOMEN: Soft, not distended. EXTREMITIES: Moves extremities equally. NEUROLOGIC: Delirious. LABORATORY DATA: Total white cell count 20.6, hemoglobin 7.3, platelets 426, 82% neutrophils. There is a big drop in his hemoglobin since the , probably multifactorial. Creatinine 1.29, which is better than on admission. The ferritin is down to 396 and CRP is down to 1.54. Blood cultures, final result negative. The last chest x-rays were from the and was stable with bilateral infiltrates. ASSESSMENT AND DISCUSSION: Hypertension; coronary artery disease; moderate to severe COVID pneumonia with marked improvement, but worsening delirium. His O2 saturations are stable, but requiring high-flow nasal oxygen administration. He has completed remdesivir and is still on corticosteroid administration. He is on methylprednisolone and it looks like the mental state is a main problem here. We may need to scan his head and make sure he did not have any focal areas of infarction, which are known to occur with COVID. Other than that, he may have just the encephalopathy associated with his multiple abnormalities associated with COVID infection including the possibility of encephalitis, although that is not very common. I we were to trust the markers, we would predict an improvement in his oxygenation. Follow up chest x-rays to continue and help for an improvement in the ensuing days. Job ID: [id number]
[2020-04-18] MEDS ORDERED: Sodium Chloride 0.9% 250 ML IV SCH ×2 (17:30→18:15)
[2020-04-18 18:04] LABS: Actual Bicarbonate (HCO3a) 12.5 mEq/L (22-28); Base Excess (BEa) -12.3 mEq/L (-2.0 to +3.0); Carboxyhemoglobin (COHb) 1.5 gm% (0.0-3.0); Potassium - ABG Lab 4.27 mmol/L (3.70-5.30); pH, Arterial 7.33 (7.35-7.45)
[2020-04-18 18:08] LABS: Hemoglobin (Hb) 5.9 g/dL (14.0-18.0)
[2020-04-18 18:52] LABS: Hemoglobin 6.4 g/dL (14.0-18.0); Mean Corpuscular Hemoglobin 31.5 pg (27.0-31.0); Mean Corpuscular Volume 95.7 fL (78.0-98.0); Mean Platelet Volume 8.1 fL (7.4-10.4); Platelet Count 456 thou/uL (130-400); RBC Distribution Width 15.1 % (11.5-14.5); Red Blood Cell (RBC) Count 2.03 mill/uL (4.70-6.10)
[2020-04-18 19:12] LABS: Anion Gap 14 mmol/L (10-20); BUN (Urea Nitrogen) 119 mg/dL (8.4-25.7); Calc. Creatinine Clearance 34 mL/min (70-130); Calcium 7.7 mg/dL (7.8-10.44); Carbon Dioxide 13 mmol/L (23-31); Chloride 116 mmol/L (98-107); Estimated GFR-MDRD 37; Glucose 211 mg/dL (83-110); Potassium 4.7 mmol/L (3.5-5.1); Sodium 138 mmol/L (136-145)
[2020-04-18 19:14] LABS: Anisocytosis SLIGHT = 6-15 cells (100X) (0-5/hpf); Band 15 % (5-11); MDiff Complete? YES; Metamyelocyte 3 % (0-0); Monocytes 1 % (0-10); Myelocyte 1 % (0-0); Neutrophil 79 % (42-75); Nucleated RBC 4 % (0); Platelet Morphology Comment Appears Increased; Polychromasia MARKED = >4 cells (100X) (0-2/hpf); Reactive Lymphocytes 1 % (0-10); Tear Drops SLIGHT = 2-5 cells (100X) (0-1/hpf); White Blood Cell (WBC) Count 24.1 thou/uL (4.8-10.8)
[2020-04-18 19:18] LABS: Troponin I 0.033 ng/mL (< 0.028)
[2020-04-18] MEDS: Sodium Bicarb 50 MEQ/50 ML Abboject 8.4% SYRINGE IVP SCH ×5 (20:59→22:29)
[2020-04-18] MEDS: Pantoprazole 80 MG, Admixture Fee 1 EACH in Sodium Chloride 0.9% 100 ML IVPB SCH (21:39)
--- NOTE | 2020-04-18 22:43 | PRG ---
DATE OF SERVICE: 04/18/2020 Dario Hill is becoming mildly more encephalopathic last night and today. Xanax and Seroquel really did not help him much. This afternoon, he transiently dropped his blood pressure, was given volume. Blood gas showed that his hemoglobin had fallen from 7.1 this morning to 5.9, so he is receiving 2 units of packed cells now. He also had a decline in his renal function, which I believe at least in part accounts for his acid-base disorder. His anion gap is not large. He is hyperchloremic, which also is contributing to his acid-base disorder. He will be given some bicarb tonight. His anticoagulants will be withheld for now. I had a long discussions with multiple family members about code status, for now he is full code. His son had COVID in January and his has just gotten over COVID after 14 days of quarantine/isolation. They want to come and see in the morning. BiPAP has been started just for his comfort and he actually appears comfortable now. It is still unclear whether or not he will survive this. He has never had congestive heart failure in the past, so he should tolerate the volume in the transfusion. He will be placed on a Protonix drip empirically assuming that this is likely a slow upper GI ooze. We will talk to Gastroenterology about this as well. As mentioned, I have had three different family conversations today and kept them updated. Critical care time 30 min. Job ID: [id number] MTDD
--- NOTE | 2020-04-19 02:21 | PDOC.BPN ---
- Brief Progress Note Encounter Date: 04/18/20 Encounter Time: 05:00 At about 5pm I was notified about Mr Sergio having low BP he had received seroquel and xanax earlier for aggitation which could be contributing He received 500mls NS to no avail also ordered Trop, bnp, ekg cbc and bmp His nurse contacted Dr. Penaloza who recommended transfer to CCU and he reviewed. He had low hgb and so got transfusion also started on bipap cr incrased-likely pre renal SURJIT trop increased-unlikely ACS, likely due to SURJIT Will continue monitoring in CCU Appreciate Pulmonology imput
[2020-04-19 03:48] LABS: Anion Gap 13 mmol/L (10-20); BUN (Urea Nitrogen) 115 mg/dL (8.4-25.7); Calc. Creatinine Clearance 41 mL/min (70-130); Calcium 7.4 mg/dL (7.8-10.44); Carbon Dioxide 19 mmol/L (23-31); Chloride 117 mmol/L (98-107); Estimated GFR-MDRD 45; Glucose 203 mg/dL (83-110); Potassium 4.5 mmol/L (3.5-5.1); Sodium 144 mmol/L (136-145)
[2020-04-19 04:03] LABS: Band 5 % (5-11); Hemoglobin 8.2 g/dL (14.0-18.0); Lymphocytes 6 % (21-51); MDiff Complete? YES; Mean Corpuscular HGB CONC 33.7 g/dL (32.0-36.0); Mean Corpuscular Hemoglobin 31.6 pg (27.0-31.0); Mean Corpuscular Volume 93.8 fL (78.0-98.0); Mean Platelet Volume 7.9 fL (7.4-10.4); Monocytes 5 % (0-10); Myelocyte 2 % (0-0); Neutrophil 82 % (42-75); Platelet Count 351 thou/uL (130-400); Polychromasia SLIGHT = 2-3 cells (100X) (0-2/hpf); RBC Distribution Width 13.9 % (11.5-14.5); Red Blood Cell (RBC) Count 2.59 mill/uL (4.70-6.10); White Blood Cell (WBC) Count 20.8 thou/uL (4.8-10.8)
[2020-04-19] MEDS: Senokot S 8.6-50 MG TAB PO SCH ×3 (07:25→21:12)
[2020-04-19] MEDS ORDERED: Dextrose 50% Abboject 50 ML SYRINGE SLOW IVP PRN (07:43)
[2020-04-19] MEDS ORDERED: Dextrose 5% in Water 1,000 ML IV PRN (07:43)
[2020-04-19] MEDS: Pantoprazole 80 MG, Admixture Fee 1 EACH in Sodium Chloride 0.9% 100 ML IVPB SCH ×2 (07:52→17:18)
[2020-04-19] MEDS: Sodium Chloride 0.45% 1,000 ML IV SCH ×2 (07:52→17:18)
[2020-04-19 08:53] LABS: Hemoglobin 8.3 g/dL (14.0-18.0)
[2020-04-19] MEDS ORDERED: Bacteriostatic Water 30 ML VIAL FS PRN (10:15)
[2020-04-19] MEDS ORDERED: methylPREDNISolone Sod Succ/PF 125 MG/2 ML VIAL IVP SCH (10:15)
[2020-04-19] MEDS ORDERED: methylPREDNISolone Sod Succ 40 MG VIAL IVP SCH (11:00)
[2020-04-19] MEDS: Aspirin Chewable 81 MG TAB PO SCH (11:57)
[2020-04-19] MEDS: Ascorbic Acid 500 mg Chewable Tablet PO SCH (11:57)
[2020-04-19] MEDS: Enoxaparin Sodium 40 MG/0.4 ML SYRINGE SC SCH (12:54)
[2020-04-19] MEDS: methylPREDNISolone Sod Succ/PF 125 MG/2 ML VIAL IVP SCH (12:54)
--- NOTE | 2020-04-19 14:51 | PDOC.HOSPP ---
- Subjective Encounter Date: 04/19/20 Encounter Time: 11:00 Subjective: Patient was not directly examined by me today. He was transferred to CCU on account of hypotension and worsening mental state. He was on BiPAP now transition back to high flow oxygen. Also had 2 units of blood on account of anemia. Hemoglobin stable Pulmonology following closely. - Objective Vital Signs & Weight: Vital Signs (12 hours) Pulse Pulse Ox 04/19/20 12:00 100 04/19/20 11:00 96 04/19/20 08:00 96 04/19/20 07:26 68 94 L Weight Weight 172 lb Most Recent Monitor Data Heart Rate from ECG 92 NIBP 141/95 NIBP BP-Mean 110 Respiration from ECG 12 SpO2 100 I&O: 04/18/20 04/19/20 04/20/20 06:59 06:59 06:59 Intake Total 1230 2688.7 Output Total 1398 1435 455 Balance -168 1253.7 -455 Result Diagrams: 04/19/20 08:44 04/19/20 03:14 Hospitalist ROS - Medication Medications: Active Medications Generic Name Dose Route Start Last Admin Trade Name Freq PRN Reason Stop Dose Admin Ascorbic Acid 1,000 mg 04/19/20 09:00 04/19/20 11:57 Ascorbic Acid 500 Mg Chewable Tablet PO Not Given DAILY PATRICK Aspirin 81 mg 04/12/20 09:00 04/19/20 11:57 Aspirin Chewable 81 Mg Tab PO Not Given DAILY PATRICK Benzonatate 200 mg 04/12/20 12:57 04/13/20 20:27 Benzonatate 100 Mg Cap PO 200 mg Q6H PRN Administration Cough Guaifenesin/Dextromethorphan 15 ml 04/11/20 02:57 04/12/20 09:47 Guaifenesin Dm 100-10/5 Ml Udcup PO 15 ml Q4H PRN Administration Cough Dexmedetomidine HCl 400 mcg/ 100 mls @ 0 mls/hr 04/18/20 16:00 04/19/20 08:40 Sodium Chloride IVPB 100 mls INF PATRICK Administration Protocol Titrate Pantoprazole Sodium 80 mg/ 100 mls @ 10 mls/hr 04/18/20 20:00 04/19/20 07:52 Miscellaneous Medication 1 IVPB 100 mls each/ Sodium Chloride INF PATRICK Administration Sodium Chloride 1,000 mls @ 100 mls/hr 04/19/20 06:00 04/19/20 07:52 1/2 Normal Saline IV 1,000 mls .Q10H PATRICK Administration Metoprolol Succinate 25 mg 04/12/20 09:00 04/19/20 11:57 Metoprolol Succinate Xl 25 Mg Tab PO Not Given DAILY PATRICK Senna/Docusate Sodium 1 tab 04/17/20 21:00 04/19/20 11:57 Senokot S 8.6-50 Mg Tab PO Not Given BID PATRICK Hosp A/P - Plan I did not directly examine the patient today. this is a 84-year-old male patient with a history of coronary disease, CKD admitted on account of cough with pneumonia. He was transferred to [facility] for close monitoring on high flow oxygen. He is generally confused at the moment likely delirious. Currently being managed in CCU. He appears to be deteriorating. ID and pulmonology following. Pneumonia secondary to covid Received Lovenox, steroids, plasma and remdesivir Monitor d-dimer/ferritin/CRP Hr Business Partner/ID following. Acute hypoxic respiratory failure Secondary to covid pneumonia Continue on oxygen therapyon high flow oxygen/BiPAP as needed Pulmonology following. SURJIT on CKD. Increasing creatinine overnight on account of hypotension pressure Creatinine increased to 1.77 from 1.79 currently down to 1.49. Creatinine returning back to normal after IV fluids and blood transfusion We will keep close monitoring. Anemia Possible from GI bleeding Received 2 units of blood with hemoglobin stable above 8 We will continue H&H monitoring. We will continue on Protonix, Lovenox held GI consulted Carotid artery disease Mild increase in troponin likely secondary to hypotensionpatient was already on anticoagulation Status post CABG Continue close monitoring Delirium Likely to long ICU stay Could also be due to complication of COVID Continue monitoring We will hold the Zyprexa for now Generally declining prognosis Pulmonology planning to talk with family about prognosis We will get palliative care involved on Tuesday VTE prophylaxistherapeutic on Lovenox
--- NOTE | 2020-04-19 16:21 | PRG ---
DATE OF SERVICE: 04/19/2020 SUBJECTIVE: Mr. Hill looks a little better today. OBJECTIVE: VITAL SIGNS: His blood pressure 141/95, heart rate 92, and respiratory rate is 12. LUNGS: Unchanged. HEART: Unchanged. ABDOMEN: Unchanged. LABORATORY DATA: Hemoglobin is 8.3 at 8 o'clock this morning, is 8.2 at 3 o'clock this morning. We will check another one at 4 o'clock this afternoon. Sodium 144, potassium 4.5, chloride 117, bicarb 19, BUN 15, and creatinine 1.49. IMPRESSION: 1. COVID pneumonia. 2. Probable slow gastrointestinal bleed with a drop in hemoglobin, transient hypotension yesterday, appears to be stable now. 3. Advanced age. We will continue his current care along with family, and I answered all of their questions. His and son who are at bedside. Job ID: [id number]
[2020-04-19 16:37] LABS: Hemoglobin 7.1 g/dL (14.0-18.0)
--- NOTE | 2020-04-19 19:05 | CON ---
DATE OF CONSULTATION: 04/19/2020 REQUESTING PHYSICIAN: Pk Jasso MD REASON FOR CONSULTATION: Concern for GI bleeding, acute anemia. HISTORY OF PRESENT ILLNESS: Dario Hill is an 84-year-old man who was admitted to the hospital 8 days ago with worsening COVID pneumonia. He has a prior history of coronary artery disease status post CABG. He saw my partner Dr. Job Braden in the past for screening colonoscopy, had a few polyps removed, last colonoscopy in 2013. Evidently, the patient and a couple other family members were diagnosed with COVID a couple of weeks ago. The patient had slow progression of cough and dyspnea symptoms over the course of a week and was finally admitted to the hospital 8 days ago on 04/10/2020. CT demonstrated characteristic patchy bilateral ground-glass infiltrates. Notably, hemoglobin was 12.9 on admission. The patient was treated aggressively with IV steroids, 1st Decadron and now IV methylprednisolone as well as antibiotics. He received remdesivir, convalescent plasma, and Lovenox. Over the course of his admission, he has continued on high-flow oxygen, but unfortunately over the past several days developed worsening mental status and confusion. He was transferred to the ICU 2 days ago. Yesterday, laboratory studies demonstrated his hemoglobin had declined significantly from 12.9 on admission down to 6.4. He was given 2 units RBCs and today's hemoglobin is up to 8.3. His Lovenox was held yesterday. He was started on a pantoprazole drip yesterday. He was placed on BiPAP for comfort. He has not had to be intubated. He remains somewhat confused. Through all of this, there has been no report of any melena or hematochezia or hematemesis or any other overt bleeding. From what I can tell, the patient has not had a bowel movement for the past several days. He had some transient hypotension yesterday evening, but vital signs aside from oxygenation are all stable today. He is not really complaining of any abdominal pain. He does state he is having the urge to have a bowel movement. REVIEW OF SYSTEMS: Unable to obtain full review of systems due to the patient's altered mental status. PAST MEDICAL HISTORY: 1. Coronary artery disease. 2. Coronary artery bypass graft. 3. Hypertension. 4. Hyperlipidemia. 5. Colon polyps in 2013, was his last colonoscopy. ALLERGIES: NO KNOWN DRUG ALLERGIES. OUTPATIENT MEDICATIONS: 1. Lipitor. 2. Losartan. 3. Metoprolol. 4. Aspirin. INPATIENT MEDICATIONS: 1. Pantoprazole drip. 2. Metoprolol 25 mg daily. 3. Methylprednisolone 40 mg IV twice daily. 4. Guaifenesin and dextromethorphan. 5. Precedex. 6. Tessalon Perles. 7. Aspirin 81 mg daily. 8. Vitamin C 1000 mg daily. FAMILY HISTORY: Noncontributory. SOCIAL HISTORY: The patient does not smoke. Alcohol use is occasional. 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 PHYSICAL EXAMINATION: VITAL SIGNS: Temperature 98.2, pulse 85, blood pressure 124/89, and 96% oxygen saturation on high-flow oxygen. GENERAL: An 84-year-old man, sitting up in bed, in moderate distress from dyspnea, responding to internal stimuli. SKIN: No jaundice. No rash visible or palpable. EYES: No scleral icterus. Extraocular movements intact. ENT: The patient is on high-flow nasal cannula oxygen. LYMPHATICS: No submandibular or supraclavicular lymphadenopathy. THYROID: Nontender to palpation. HEART: Regular rate and rhythm. LUNGS: Bibasilar crackles. He is tachypneic. ABDOMEN: Nondistended. Bowel sounds present. Soft and nontender to palpation throughout. EXTREMITIES: No peripheral edema. VESSELS: Radial pulses 2+ bilaterally. RECTAL: Exam was performed. No external hemorrhoids. Adequate sphincter tone. There is some soft stool within the rectal vault. The stool is jet black on withdrawal of the glove and has the appearance of melena, no red blood. LABORATORY STUDIES: Hemoglobin was 12.9 on admission, had dropped to 6.4 by yesterday, now up to 8.3 after 2 units RBC transfusion; WBC is 20.8; platelets 351; and MCV 93.8. Sodium 144, potassium 4.5, BUN is 115, and creatinine 1.49. Ferritin is 396. BNP only 24.4. Troponin 0.033. CRP elevated to 1.54. D-dimer negative. Urine culture negative. Blood cultures negative. ASSESSMENT AND PLAN: 1. Acute anemia over the past week, in the context of aggressive treatment for severe COVID pneumonia. This is likely multifactorial, but his stool does appear melenic and he is certainly at risk for upper gastrointestinal bleeding with all the steroid treatment as well as Lovenox over the past week. I cannot see that he has been on acid suppression, though proton pump inhibitor drip was started yesterday. All that being said, it does not appear he has had any hemodynamically significant bleeding. He responded well to initial blood transfusion. This most likely represents a slow upper gastrointestinal oozing. I think at this point the risks of performing upper endoscopy outweigh the potential benefits at this time. I think the likelihood of any endoscopically treatable lesion is not high. Therefore, I would recommend continued medical management and close observation. Would continue the proton pump inhibitor drip. Continue to hold anticoagulation. Continue to trend hemoglobin and hematocrit and transfuse further as needed. I would reserve any upper endoscopy for hemodynamically significant overt bleeding. We will follow along closely with you. Please feel free to call anytime with questions or concerns. 2. Severe COVID pneumonia. The patient remains on high-flow oxygen. He has received remdesivir and convalescent plasma. He is receiving steroids. Treatment per primary service, ID, and Pulmonary services. Job ID: [id number]
[2020-04-19] MEDS: methylPREDNISolone Sod Succ 40 MG VIAL IVP SCH (21:12)
[2020-04-19 22:41] LABS: Hemoglobin 8.1 g/dL (14.0-18.0)
[2020-04-20] MEDS: Pantoprazole 80 MG, Admixture Fee 1 EACH in Sodium Chloride 0.9% 100 ML IVPB SCH ×3 (01:56→21:05)
[2020-04-20] MEDS: Sodium Chloride 0.45% 1,000 ML IV SCH ×3 (01:56→21:05)
[2020-04-20 04:53] LABS: Anion Gap 12 mmol/L (10-20); BUN (Urea Nitrogen) 121 mg/dL (8.4-25.7); Calc. Creatinine Clearance 40 mL/min (70-130); Calcium 7.3 mg/dL (7.8-10.44); Carbon Dioxide 18 mmol/L (23-31); Chloride 120 mmol/L (98-107); Estimated GFR-MDRD 44; Glucose 197 mg/dL (83-110); Potassium 4.7 mmol/L (3.5-5.1); Sodium 145 mmol/L (136-145)
[2020-04-20 05:33] LABS: Anisocytosis SLIGHT = 6-15 cells (100X) (0-5/hpf); Band 17 % (5-11); Hemoglobin 7.3 g/dL (14.0-18.0); Lymphocytes 8 % (21-51); MDiff Complete? YES; Mean Corpuscular HGB CONC 36.5 g/dL (32.0-36.0); Mean Corpuscular Hemoglobin 34.2 pg (27.0-31.0); Mean Corpuscular Volume 93.7 fL (78.0-98.0); Mean Platelet Volume 8.1 fL (7.4-10.4); Neutrophil 75 % (42-75); Platelet Count 311 thou/uL (130-400); RBC Distribution Width 14.6 % (11.5-14.5); Red Blood Cell (RBC) Count 2.12 mill/uL (4.70-6.10); White Blood Cell (WBC) Count 23.3 thou/uL (4.8-10.8)
[2020-04-20] MEDS: methylPREDNISolone Sod Succ 40 MG VIAL IVP SCH ×2 (09:26→20:03)
[2020-04-20] MEDS: Ascorbic Acid 500 mg Chewable Tablet PO SCH (11:28)
[2020-04-20] MEDS: Aspirin Chewable 81 MG TAB PO SCH (11:28)
[2020-04-20] MEDS: Senokot S 8.6-50 MG TAB PO SCH ×2 (11:29→20:03)
--- NOTE | 2020-04-20 11:29 | PRG ---
DATE OF SERVICE: 04/20/2020 SUBJECTIVE: Mr. Hill did have a couple of melenic-appearing stools overnight. He is less confused today. He is not complaining of any abdominal pain. He is calm and is actually feeling a lot less short of breath. He received 3 units of RBC transfusion yesterday. Hemoglobin did come back down to 7.3. No significant hemodynamic changes. OBJECTIVE: VITAL SIGNS: Temperature is 97.9, heart rate 98, blood pressure 116/72, and oxygen saturation 96% on high-flow oxygen. GENERAL: He is more calm today. He is able to answer questions appropriately, critically ill, but in no acute distress. HEART: Regular rate and rhythm. LUNGS: Bibasilar crackles. ABDOMEN: Bowel sounds present. Soft and nontender to palpation. EXTREMITIES: No peripheral edema. LABORATORY STUDIES: WBC 23.3, hemoglobin 7.3, and platelets 311. Sodium 145, potassium 4.7, BUN 121, creatinine 1.53, glucose 197, and calcium 7.3. ASSESSMENT AND PLAN: 1. Melena. 2. Acute blood loss anemia, significant over the past week, in the context of aggressive treatment for severe COVID pneumonia. Everything points toward slow ongoing upper gastrointestinal source. He was just started on PPI drip yesterday, Lovenox being held. We will give two more units RBCs today. Continue to monitor H and H and transfuse as needed. I discussed the case with Dr. Penaloza. We are not going to proceed with any upper endoscopy, but rather will treat medically. Upper endoscopy would require endotracheal intubation and its own attendant risks including risks of COVID exposure to endoscopy crew. However, we can always consider upper endoscopy going forward if the patient is having any hemodynamically significant bleeding. GI will continue to follow along. Please call anytime with questions or concerns. Job ID: [id number]
--- NOTE | 2020-04-20 14:10 | PDOC.HOSPP ---
- Subjective Encounter Date: 04/20/20 Encounter Time: 13:00 Subjective: Patient was not examined. No saline examined by pulmonology. He otherwise had a stable night with intermittent low blood pressures on sedation. Otherwise has generally been stable. - Objective Vital Signs & Weight: Vital Signs (12 hours) Temp Pulse Ox 04/20/20 08:00 98 04/20/20 04:00 97.9 F Weight Weight 184 lb 11.958 oz Most Recent Monitor Data Heart Rate from ECG 104 NIBP 137/71 NIBP BP-Mean 93 Respiration from ECG 21 SpO2 100 I&O: 04/19/20 04/20/20 04/21/20 06:59 06:59 06:59 Intake Total 2688.7 3089.4 Output Total 1435 1820 380 Balance 1253.7 1269.4 -380 Result Diagrams: 04/20/20 04:10 04/20/20 04:10 Hospitalist ROS - Medication Medications: Active Medications Generic Name Dose Route Start Last Admin Trade Name Freq PRN Reason Stop Dose Admin Ascorbic Acid 1,000 mg 04/19/20 09:00 04/20/20 11:28 Ascorbic Acid 500 Mg Chewable Tablet PO 1,000 mg DAILY PATRICK Administration Aspirin 81 mg 04/12/20 09:00 04/20/20 11:28 Aspirin Chewable 81 Mg Tab PO 81 mg DAILY PATRICK Administration Benzonatate 200 mg 04/12/20 12:57 04/13/20 20:27 Benzonatate 100 Mg Cap PO 200 mg Q6H PRN Administration Cough Guaifenesin/Dextromethorphan 15 ml 04/11/20 02:57 04/12/20 09:47 Guaifenesin Dm 100-10/5 Ml Udcup PO 15 ml Q4H PRN Administration Cough Dexmedetomidine HCl 400 mcg/ 100 mls @ 0 mls/hr 04/18/20 16:00 04/19/20 08:40 Sodium Chloride IVPB 100 mls INF PATRICK Administration Protocol Titrate Pantoprazole Sodium 80 mg/ 100 mls @ 10 mls/hr 04/18/20 20:00 04/20/20 11:50 Miscellaneous Medication 1 IVPB 100 mls each/ Sodium Chloride INF PATRICK Administration Sodium Chloride 1,000 mls @ 100 mls/hr 04/19/20 06:00 04/20/20 11:32 1/2 Normal Saline IV 1,000 mls .Q10H PTARICK Administration Methylprednisolone Sodium Succinate 40 mg 04/19/20 21:00 04/20/20 09:26 Methylprednisolone Sod Succ 40 Mg Vial IVP 40 mg BID PATRICK Administration Metoprolol Succinate 25 mg 04/12/20 09:00 04/20/20 11:29 Metoprolol Succinate Xl 25 Mg Tab PO Not Given DAILY PATRICK Senna/Docusate Sodium 1 tab 04/17/20 21:00 04/20/20 11:29 Senokot S 8.6-50 Mg Tab PO Not Given BID PATRICK - Exam General - other findings: Patient was not examined. Hosp A/P - Plan I did not directly examine the patient today. this is a 84-year-old male patient with a history of coronary disease, CKD admitted on account of cough with pneumonia. He was transferred to [facility] for close monitoring on high flow oxygen. He is generally confused at the moment likely delirious. Currently being managed in CCU. Course complicated with anemia concerns for GI bleed. ID and pulmonology following. Pneumonia secondary to covid Steroids, plasma and remdesiviranticoagulation held on account of anemia Monitor d-dimer/ferritin/CRP Ammonium Sulfate Operator/ID following. Acute hypoxic respiratory failure Secondary to covid pneumonia Continue on oxygen therapyon high flow oxygen/BiPAP as needed Pulmonology following. SURJIT on CKD. Increasing creatinine on account of earlier hypotension pressure Creatinine increased to 1.77 from 1.79 currently down to 1.49 and now 1.53. Received IV fluids and blood transfusion We will keep close monitoring. Anemia Likely from GI source Transfuse as needed GI reviewedno intervention is planned for now Close monitoring H&H Carotid artery disease Status post CABG Continue close monitoring Delirium Likely to long ICU stay Could also be due to complication of COVID Continue monitoring Generally declining prognosis Pulmonology planning to talk with family about prognosis We will get palliative care involved on Tuesday VTE prophylaxistherapeutic on Lovenox
--- NOTE | 2020-04-20 14:18 | PRG ---
DATE OF SERVICE: 04/20/2020 SUBJECTIVE: Mr. Hill is on BiPAP in the ICU. He was able to swallow his oral medications, but is not eating much. The mental state has improved and is off the sedative. The patient has developed GI bleed with melena, and GI has evaluated the patient and is monitoring his status with transfusions as needed. Lovenox or enoxaparin has been discontinued. He is still on aspirin. OBJECTIVE: VITAL SIGNS: T-max 99.3, blood pressure 116/72, heart rate is 98, respiratory rate is 24, O2 saturation 100% with BiPAP. GENERAL: He is awake. He follows commands. He establishes eye contact. HEENT: Pupils are constricted. LUNGS: With symmetric coarse breath sounds. HEART: S1 and S2. Regular rate. ABDOMEN: Soft. Not distended or tender. The patient has an indwelling Lozano catheter. His I's and O's are positive for the past few days. LABORATORY DATA: White cell count 23.3, hemoglobin 7.3, this is after transfusion of 2 units, still 2 to go, platelets are 315, he has 17% bands. D-dimer is less than 0.27. CRP is down to 1.54. Ferritin is down to 396. The last imaging study is from the , chest x-ray with bilateral infiltrates. ASSESSMENT AND DISCUSSION: Hypertension, coronary artery disease, severe COVID pneumonia with some improvement, but worsening delirium, encephalopathy, possibility of encephalitis is considered, requiring high-flow nasal oxygen administration and intermittently with BiPAP for resting, has completed remdesivir, still on corticosteroids, has developed gastrointestinal bleed, and enoxaparin has been discontinued. This is the day of illness approximately. Job ID: [id number] [facility]
[2020-04-20 16:37] LABS: Hemoglobin 8.8 g/dL (14.0-18.0)
--- NOTE | 2020-04-20 17:26 | PRG ---
DATE OF SERVICE: 04/20/2020 SUBJECTIVE: Dario Hill did well overnight. He actually was not on BiPAP last night. OBJECTIVE: VITAL SIGNS: Blood pressure 135/66, heart rate is 94, respiratory rate 16, oximetry is 100%. LUNGS: Unchanged. HEART: Unchanged. ABDOMEN: Unchanged. LABORATORY DATA: Hemoglobin 7.3 this morning, so he will receive 1 unit of blood and then hemoglobin will be checked this afternoon. Sodium 145, potassium 4.7, chloride 120, bicarb 18, BUN 121, creatinine 1.53. Intake and output positive 1269. IMPRESSION: 1. COVID pneumonia. 2. Bjcoe-qb-irwuhjj kidney disease. 3. Mild encephalopathy that waxes and wanes. 4. Blood loss anemia, which being treated in a supportive fashion appropriately in my opinion. For endoscopy, he would have to be intubated. He says he does not want to be intubated, but he says he does want to have his heart shocked, which really is not an option to have one and not the other. PLAN: To discuss more with his family. If he ever gets intubated, I doubt we will be able to successfully extubate him to a point where he can become functional again. CRITICAL CARE TIME: 30 minutes. Job ID: [id number]
[2020-04-21 05:14] LABS: Anion Gap 10 mmol/L (10-20); BUN (Urea Nitrogen) 98 mg/dL (8.4-25.7); Calc. Creatinine Clearance 42 mL/min (70-130); Calcium 7.5 mg/dL (7.8-10.44); Carbon Dioxide 18 mmol/L (23-31); Chloride 120 mmol/L (98-107); Estimated GFR-MDRD 43; Glucose 161 mg/dL (83-110); Potassium 4.3 mmol/L (3.5-5.1); Sodium 144 mmol/L (136-145)
[2020-04-21 05:22] LABS: Band 3 % (5-11); Hemoglobin 8.1 g/dL (14.0-18.0); MDiff Complete? YES; Mean Corpuscular HGB CONC 36.1 g/dL (32.0-36.0); Mean Corpuscular Hemoglobin 34.1 pg (27.0-31.0); Mean Corpuscular Volume 94.4 fL (78.0-98.0); Monocytes 1 % (0-10); Neutrophil 96 % (42-75); Platelet Count 256 thou/uL (130-400); Polychromasia SLIGHT = 2-3 cells (100X) (0-2/hpf); RBC Distribution Width 14.8 % (11.5-14.5); Red Blood Cell (RBC) Count 2.38 mill/uL (4.70-6.10); White Blood Cell (WBC) Count 23.4 thou/uL (4.8-10.8)
[2020-04-21] MEDS: Senokot S 8.6-50 MG TAB PO SCH ×2 (09:26→21:05)
[2020-04-21] MEDS: Ascorbic Acid 500 mg Chewable Tablet PO SCH (09:26)
[2020-04-21] MEDS: Sodium Chloride 0.45% 1,000 ML IV SCH ×2 (09:26→17:15)
[2020-04-21] MEDS: Aspirin Chewable 81 MG TAB PO SCH (09:26)
[2020-04-21] MEDS: methylPREDNISolone Sod Succ 40 MG VIAL IVP SCH ×2 (09:27→21:05)
--- NOTE | 2020-04-21 10:07 | PRG ---
DATE OF SERVICE: 04/21/2020 SUBJECTIVE: Dario méndez says he is feeling better. He is a little bit confused last night, but overall he is doing well. OBJECTIVE: LUNGS: Unchanged. HEART: Unchanged. ABDOMEN: Unchanged. LABORATORY DATA: White count 23, hemoglobin 8, platelets 256. Electrolytes are unremarkable. BUN 98, creatinine 1.54. IMPRESSION: 1. Coronavirus disease pneumonia, clinically stabilizing. 2. Gastrointestinal blood loss, clinically stabilized. 3. Acute on chronic kidney disease, stable. PLAN: Nocturnal BiPAP and high-flow during the day. Job ID: [id number]
--- NOTE | 2020-04-21 10:07 | PRG ---
DATE OF SERVICE: 04/21/2020 SUBJECTIVE: Mr. Hill is saying he feels a bit better today. He feels he is breathing easier. He is not having any abdominal pain. He had a small smear of tarry stool this morning. Hemoglobin decreased marginally from last night down from 8.8 to 8.1. OBJECTIVE: VITAL SIGNS: Temperature 97.9, blood pressure 148/82, heart rate 92, and 100% oxygen saturation on high-flow 70% oxygen. GENERAL: Critically ill, sitting up in bed, but comfortable. No distress. He is able to answer questions appropriately. HEART: Regular rate and rhythm. LUNGS: Bibasilar crackles. ABDOMEN: Bowel sounds present. Soft and nontender to palpation. EXTREMITIES: No peripheral edema. LABORATORY STUDIES: Hemoglobin 8.1, WBC 23.4, and platelets are 256. Sodium 144, potassium 4.3, BUN 98, and creatinine 1.54. Note, BUN is trended down from yesterday. ASSESSMENT/PLAN: 1. Melena, appears to be slowing down. 2. Acute blood loss anemia, in the context of aggressive treatment for severe COVID pneumonia. Clinically, it appears that blood loss is slowing down. Continue to monitor the H and H closely. Continue to hold anticoagulation. Continue with the PPI drip. I think his diet can be advanced today. We are not going to proceed with any upper endoscopy, but rather we will continue to treat medically. GI can continue to follow along. Please call anytime with questions or concerns. Job ID: [id number]
[2020-04-21] MEDS: Pantoprazole 80 MG, Admixture Fee 1 EACH in Sodium Chloride 0.9% 100 ML IVPB SCH (15:32)
[2020-04-21] MEDS: HumaLOG 300 UNITS/3 ML VIAL SC PRN (15:55)
--- NOTE | 2020-04-21 16:04 | PDOC.HOSPP ---
- Subjective Encounter Date: 04/21/20 Encounter Time: 16:03 Subjective: Patient was not examined by me today Still being managed in ICU - Objective Vital Signs & Weight: Vital Signs (12 hours) Temp Pulse Ox 04/21/20 12:00 98.8 F 04/21/20 10:10 91 L 04/21/20 08:00 98.6 F 98 Weight Admit Weight 182 lb Weight 182 lb 15.739 oz Most Recent Monitor Data Heart Rate from ECG 91 NIBP 132/85 NIBP BP-Mean 100 Respiration from ECG 20 SpO2 100 I&O: 04/20/20 04/21/20 04/22/20 06:59 06:59 06:59 Intake Total 3089.4 2825.4 480 Output Total 1820 1945 710 Balance 1269.4 880.4 -230 Result Diagrams: 04/27/20 03:20 04/27/20 03:20 Additional Labs: Accuchecks 04/21/20 04/21/20 15:50 10:22 POC Glucose 199 H 126 H Hospitalist ROS - Medication Medications: Active Medications Generic Name Dose Route Start Last Admin Trade Name Freq PRN Reason Stop Dose Admin Ascorbic Acid 1,000 mg 04/19/20 09:00 04/21/20 09:26 Ascorbic Acid 500 Mg Chewable Tablet PO 1,000 mg DAILY PATRICK Administration Aspirin 81 mg 04/12/20 09:00 04/21/20 09:26 Aspirin Chewable 81 Mg Tab PO 81 mg DAILY PATRICK Administration Benzonatate 200 mg 04/12/20 12:57 04/13/20 20:27 Benzonatate 100 Mg Cap PO 200 mg Q6H PRN Administration Cough Guaifenesin/Dextromethorphan 15 ml 04/11/20 02:57 04/12/20 09:47 Guaifenesin Dm 100-10/5 Ml Udcup PO 15 ml Q4H PRN Administration Cough Dexmedetomidine HCl 400 mcg/ 100 mls @ 0 mls/hr 04/18/20 16:00 04/19/20 08:40 Sodium Chloride IVPB 100 mls INF PATRICK Administration Protocol Titrate Pantoprazole Sodium 80 mg/ 100 mls @ 10 mls/hr 04/18/20 20:00 04/21/20 15:32 Miscellaneous Medication 1 IVPB 100 mls each/ Sodium Chloride INF PATRICK Administration Sodium Chloride 1,000 mls @ 100 mls/hr 04/19/20 06:00 04/21/20 09:26 1/2 Normal Saline IV 1,000 mls .Q10H PATRICK Administration Methylprednisolone Sodium Succinate 40 mg 04/19/20 21:00 04/21/20 09:27 Methylprednisolone Sod Succ 40 Mg Vial IVP 40 mg BID PATRICK Administration Metoprolol Succinate 25 mg 04/12/20 09:00 04/21/20 09:26 Metoprolol Succinate Xl 25 Mg Tab PO 25 mg DAILY PATRICK Administration Senna/Docusate Sodium 1 tab 04/17/20 21:00 04/21/20 09:26 Senokot S 8.6-50 Mg Tab PO Not Given BID PATRICK Hosp A/P - Plan I did not directly examine the patient today. this is a 84-year-old male patient with a history of coronary disease, CKD admitted on account of cough with pneumonia. He was transferred to IMCU for close monitoring on high flow oxygen. He is generally confused at the moment likely delirious. Currently being managed in CCU. Course complicated with anemia concerns for GI bleed. ID and pulmonology following. Pneumonia secondary to covid Steroids, plasma and remdesiviranticoagulation held on account of anemia Monitor d-dimer/ferritin/CRP Laundry Aide/ID following. Acute hypoxic respiratory failure Secondary to covid pneumonia Continue on oxygen therapyon high flow oxygen/BiPAP as needed Pulmonology following. SURJIT on CKD. Increasing creatinine on account of earlier hypotension pressure Creatinine increased to 1.77 from 1.79 currently down to 1.49 and now 1.53. Received IV fluids and blood transfusion We will keep close monitoring. Anemia Likely from GI source Transfuse as needed GI reviewedno intervention is planned for now Close monitoring H&H Carotid artery disease Status post CABG Continue close monitoring Delirium Likely to long ICU stay Could also be due to complication of COVID Continue monitoring Generally declining prognosis Pulmonology planning to talk with family about prognosis We will get palliative care involved on Tuesday VTE prophylaxistherapeutic on Lovenox
--- NOTE | 2020-04-21 16:08 | PDOC.HOSPP ---
- Subjective Encounter Date: 04/21/20 Encounter Time: 12:00 Subjective: . No significant events overnight. I did not personally examine him. Being followed by pulmonology/ID/GI. - Objective Vital Signs & Weight: Vital Signs (12 hours) Temp Pulse Ox 04/21/20 12:00 98.8 F 04/21/20 10:10 91 L 04/21/20 08:00 98.6 F 98 Weight Admit Weight 182 lb Weight 182 lb 15.739 oz Most Recent Monitor Data Heart Rate from ECG 91 NIBP 132/85 NIBP BP-Mean 100 Respiration from ECG 20 SpO2 100 I&O: 04/20/20 04/21/20 04/22/20 06:59 06:59 06:59 Intake Total 3089.4 2825.4 480 Output Total 1820 1945 710 Balance 1269.4 880.4 -230 Result Diagrams: 04/27/20 03:20 04/27/20 03:20 Additional Labs: Accuchecks 04/21/20 04/21/20 15:50 10:22 POC Glucose 199 H 126 H Hospitalist ROS - Medication Medications: Active Medications Generic Name Dose Route Start Last Admin Trade Name Freq PRN Reason Stop Dose Admin Ascorbic Acid 1,000 mg 04/19/20 09:00 04/21/20 09:26 Ascorbic Acid 500 Mg Chewable Tablet PO 1,000 mg DAILY PATRICK Administration Aspirin 81 mg 04/12/20 09:00 04/21/20 09:26 Aspirin Chewable 81 Mg Tab PO 81 mg DAILY PATRICK Administration Benzonatate 200 mg 04/12/20 12:57 04/13/20 20:27 Benzonatate 100 Mg Cap PO 200 mg Q6H PRN Administration Cough Guaifenesin/Dextromethorphan 15 ml 04/11/20 02:57 04/12/20 09:47 Guaifenesin Dm 100-10/5 Ml Udcup PO 15 ml Q4H PRN Administration Cough Dexmedetomidine HCl 400 mcg/ 100 mls @ 0 mls/hr 04/18/20 16:00 04/19/20 08:40 Sodium Chloride IVPB 100 mls INF PATRICK Administration Protocol Titrate Pantoprazole Sodium 80 mg/ 100 mls @ 10 mls/hr 04/18/20 20:00 04/21/20 15:32 Miscellaneous Medication 1 IVPB 100 mls each/ Sodium Chloride INF PATRICK Administration Sodium Chloride 1,000 mls @ 100 mls/hr 04/19/20 06:00 04/21/20 09:26 1/2 Normal Saline IV 1,000 mls .Q10H PATRICK Administration Methylprednisolone Sodium Succinate 40 mg 04/19/20 21:00 04/21/20 09:27 Methylprednisolone Sod Succ 40 Mg Vial IVP 40 mg BID PATRICK Administration Metoprolol Succinate 25 mg 04/12/20 09:00 04/21/20 09:26 Metoprolol Succinate Xl 25 Mg Tab PO 25 mg DAILY PATRICK Administration Senna/Docusate Sodium 1 tab 04/17/20 21:00 04/21/20 09:26 Senokot S 8.6-50 Mg Tab PO Not Given BID PATRICK Hosp A/P - Plan I did not directly examine the patient today. this is a 84-year-old male patient with a history of coronary disease, CKD ad mitted on account of cough with pneumonia. He was transferred to IMCU for close monitoring on high flow oxygen. He is generally confused at the moment likely delirious. Currently being managed in CCU. Course complicated with anemia concerns for GI bleed. ID and pulmonology following. Gastroenterology following for anemia. Pneumonia secondary to covid Steroids, plasma and remdesiviranticoagulation held on account of anemia Monitor d-dimer/ferritin/CRP Zumba Instructor/ID following. Acute hypoxic respiratory failure Secondary to covid pneumonia Continue on oxygen therapyon high flow oxygen/BiPAP as needed Pulmonology following. SURJIT on CKD. Increasing creatinine on account of earlier hypotension pressure Creatinine increased to 1.77 from 1.79 currently down to 1.49 and now 1.53. Received IV fluids and blood transfusion We will keep close monitoring. Anemia From GI loss Transfuse as needed GI reviewedno intervention is planned for now Close monitoring H&H Gastroenterology following. Carotid artery disease Status post CABG Continue close monitoring Delirium Likely to long ICU stay Could also be due to complication of COVID Continue monitoring Generally declining prognosis Pulmonology planning to talk with family about prognosis We will get palliative care involved on Tuesday VTE prophylaxistherapeutic on Lovenox
--- NOTE | 2020-04-21 16:58 | PRG ---
DATE OF SERVICE: 04/21/2020 SUBJECTIVE: The patient appears calmer. He is using nasal cannula O2. He follows commands. He is having a midline placed. OBJECTIVE: VITAL SIGNS: His temperature max was 99.3 yesterday, he has been afebrile since; BP 130/80; saturating at 91% to 98%, he is now at 97% with high-flow nasal cannula O2 at a rate of 60. His I's and O's are positive for the past few days. He has an indwelling Lozano catheter. LUNGS: Symmetric air entry. Fairly clear breath sounds. HEART: S1 and S2, regular rate. ABDOMEN: Soft, not distended. EXTREMITIES: Moves extremities equally. LABORATORY DATA: White cell count 23,000; hemoglobin 8.1; platelets 256. Sodium 144, creatinine 1.54. He is currently on Precedex, methylprednisolone 40 b.i.d., and pantoprazole. No new imaging study. ASSESSMENT AND DISCUSSION: Hypertension; coronary artery disease; severe COVID pneumonia with some improvement; delirium, now stabilization; stable O2 saturations with nasal cannula O2, high-flow. Tomorrow will be the and we should be able to stop the isolation precautions after that. Job ID: [id number]
[2020-04-22 02:29] LABS: Band 11 % (5-11); Hemoglobin 7.3 g/dL (14.0-18.0); Lymphocytes 1 % (21-51); MDiff Complete? YES; Mean Corpuscular HGB CONC 35.7 g/dL (32.0-36.0); Mean Corpuscular Hemoglobin 33.6 pg (27.0-31.0); Mean Corpuscular Volume 94.2 fL (78.0-98.0); Neutrophil 88 % (42-75); Platelet Count 202 thou/uL (130-400); RBC Distribution Width 14.8 % (11.5-14.5); Red Blood Cell (RBC) Count 2.17 mill/uL (4.70-6.10); White Blood Cell (WBC) Count 15.3 thou/uL (4.8-10.8)
[2020-04-22] MEDS: Sodium Chloride 0.45% 1,000 ML IV SCH ×3 (02:38→22:16)
[2020-04-22] MEDS: Pantoprazole 80 MG, Admixture Fee 1 EACH in Sodium Chloride 0.9% 100 ML IVPB SCH ×3 (02:38→22:41)
[2020-04-22 02:44] LABS: Anion Gap 13 mmol/L (10-20); BUN (Urea Nitrogen) 75 mg/dL (8.4-25.7); Calc. Creatinine Clearance 48 mL/min (70-130); Calcium 7.5 mg/dL (7.8-10.44); Carbon Dioxide 17 mmol/L (23-31); Chloride 120 mmol/L (98-107); Estimated GFR-MDRD 50; Glucose 152 mg/dL (83-110); Potassium 4.6 mmol/L (3.5-5.1); Sodium 145 mmol/L (136-145)
[2020-04-22] MEDS: methylPREDNISolone Sod Succ 40 MG VIAL IVP SCH ×2 (08:24→20:20)
[2020-04-22] MEDS: Senokot S 8.6-50 MG TAB PO SCH ×2 (08:25→22:19)
[2020-04-22] MEDS: Aspirin Chewable 81 MG TAB PO SCH (08:25)
[2020-04-22] MEDS: Ascorbic Acid 500 mg Chewable Tablet PO SCH (08:25)
[2020-04-22 11:41] LABS: Hemoglobin 8.1 g/dL (14.0-18.0)
--- NOTE | 2020-04-22 15:39 | PDOC.HOSPP ---
- Subjective Encounter Date: 04/22/20 Encounter Time: 11:00 Subjective: Patient was not directly examined today by me. He had a generally good night and has improved in his mentation this morning. We will continue being managed in CCU - Objective Vital Signs & Weight: Vital Signs (12 hours) Temp Resp Pulse Ox 04/22/20 12:00 99.1 F 04/22/20 08:00 98.6 F 96 04/22/20 06:00 15 04/22/20 04:00 98.1 F 15 Weight Admit Weight 182 lb Weight 183 lb 3.266 oz Most Recent Monitor Data Heart Rate from ECG 86 NIBP 128/72 NIBP BP-Mean 90 Respiration from ECG 21 SpO2 93 I&O: 04/21/20 04/22/20 04/23/20 06:59 06:59 06:59 Intake Total 2825.4 3307.2 480 Output Total 1945 2030 425 Balance 880.4 1277.2 55 Result Diagrams: 04/22/20 11:27 04/22/20 02:08 Additional Labs: Accuchecks 04/22/20 04/21/20 04/21/20 10:13 22:29 15:50 POC Glucose 89 193 H 199 H Hospitalist ROS - Medication Medications: Active Medications Generic Name Dose Route Start Last Admin Trade Name Clementeq PRN Reason Stop Dose Admin Ascorbic Acid 1,000 mg 04/19/20 09:00 04/22/20 08:25 Ascorbic Acid 500 Mg Chewable Tablet PO 1,000 mg DAILY PATRICK Administration Aspirin 81 mg 04/12/20 09:00 04/22/20 08:25 Aspirin Chewable 81 Mg Tab PO 81 mg DAILY PATRICK Administration Benzonatate 200 mg 04/12/20 12:57 04/13/20 20:27 Benzonatate 100 Mg Cap PO 200 mg Q6H PRN Administration Cough Guaifenesin/Dextromethorphan 15 ml 04/11/20 02:57 04/12/20 09:47 Guaifenesin Dm 100-10/5 Ml Udcup PO 15 ml Q4H PRN Administration Cough Dexmedetomidine HCl 400 mcg/ 100 mls @ 0 mls/hr 04/18/20 16:00 04/19/20 08:40 Sodium Chloride IVPB 100 mls INF PATRICK Administration Protocol Titrate Pantoprazole Sodium 80 mg/ 100 mls @ 10 mls/hr 04/18/20 20:00 04/22/20 13:05 Miscellaneous Medication 1 IVPB 100 mls each/ Sodium Chloride INF PATRICK Administration Sodium Chloride 1,000 mls @ 100 mls/hr 04/19/20 06:00 04/22/20 12:58 1/2 Normal Saline IV 1,000 mls .Q10H PATRICK Administration Insulin Human Lispro 0 units 04/19/20 07:43 04/21/20 15:55 Humalog 300 Units/3 Ml Vial SC 2 units .MILD SLIDING SCALE PRN Administration Mild Correctional Scale Methylprednisolone Sodium Succinate 40 mg 04/19/20 21:00 04/22/20 08:24 Methylprednisolone Sod Succ 40 Mg Vial IVP 40 mg BID PATRICK Administration Metoprolol Succinate 25 mg 04/12/20 09:00 04/22/20 08:24 Metoprolol Succinate Xl 25 Mg Tab PO 25 mg DAILY PATRICK Administration Senna/Docusate Sodium 1 tab 04/17/20 21:00 04/22/20 08:25 Senokot S 8.6-50 Mg Tab PO Not Given BID PATRICK Hosp A/P - Plan I did not directly examine the patient today. this is a 84-year-old male patient with a history of coronary disease, CKD admitted on account of cough with pneumonia. He was transferred to IMCU for close monitoring on high flow oxygen. He is generally confused at the moment likely delirious. Currently being managed in CCU. Course complicated with anemia concerns for GI bleed. ID and pulmonology following. Gastroenterology following for anemia. Today's his last day of isolation Pneumonia secondary to covid Steroids, plasma and remdesiviranticoagulation held on account of anemia Monitor d-dimer/ferritin/CRP Handbag Framer/ID following. Acute hypoxic respiratory failure Secondary to covid pneumonia Continue on oxygen therapyon high flow oxygen/BiPAP as needed Pulmonology following. SURJIT on CKD. Increasing creatinine on account of earlier hypotension pressure Creatinine increased to 1.77 from 1.79 currently down to 1.49 and now 1.53. Received IV fluids and blood transfusion We will keep close monitoring. Anemia From GI loss Transfuse as needed GI reviewedno intervention is planned for now Close monitoring H&Hhemoglobin is 7.3 this morning we will continue and transfuse if hemoglobin is less than 7. Gastroenterology followingno active intervention at this point. Carotid artery disease Status post CABG Continue close monitoring Delirium Likely to long ICU stay Could also be due to complication of COVID Continue monitoring Generally declining prognosis Pulmonology planning to talk with family about prognosis We will get palliative care involved VTE prophylaxistherapeutic on Lovenox
[2020-04-22] MEDS: HumaLOG 300 UNITS/3 ML VIAL SC PRN (18:19)
--- NOTE | 2020-04-22 18:54 | PRG ---
DATE OF SERVICE: 04/22/2020 SUBJECTIVE: Mr. Hill remains clinically stable. Still on high-flow oxygen. Sleeping on BiPAP at night. OBJECTIVE: VITAL SIGNS: Blood pressure 134/64, heart rate 70s, respiratory rates in the teens. LUNGS: Unchanged. HEART: Unchanged. ABDOMEN: Unchanged. LABORATORY DATA: Reviewed. He is doing well with Precedex. His anticoagulants had to be withheld because of GI blood loss. His hemoglobin is 8.1. He is 21 days into his symptoms tomorrow, so isolation will be discontinued. His and his son visited with him today in the room, both of them have survived COVID infections. Job ID: [id number]
[2020-04-22 19:00] LABS: Hemoglobin 7.8 g/dL (14.0-18.0)
--- NOTE | 2020-04-22 20:43 | PRG ---
DATE OF SERVICE: 04/22/2020 SUBJECTIVE: Mr. Hill had one black stool today. He had one black stool yesterday as well. He has no abdominal pain. He has been more alert today. OBJECTIVE: VITAL SIGNS: Temperature 99.1, blood pressure 141/62, pulse 74, oxygen saturation was 99% on high-flow oxygen. However, nursing reports that when he falls asleep, his O2 sats drop, and they plan to put him back on BiPAP this evening. ABDOMEN: Soft, nontender, and nondistended. LABORATORY DATA: White blood cell count 15.3, hemoglobin 7.8. IMPRESSION: 1. Gastrointestinal bleed with melena. Hemoglobin was fairly stable this afternoon. We will recheck it again in the morning. We can check this q.12 hours, and if that remains stable, then cut back to once daily. 2. COVID pneumonia. He is on steroids for this. 3. Anemia of acute blood loss. RECOMMENDATIONS: Continue to follow the trend of the hemoglobin and transfuse as necessary. I will continue to hold off endoscopy for now given his risk factors for anesthesia currently. Job ID: [id number]
[2020-04-23 03:58] LABS: Band 4 % (5-11); Hemoglobin 7.3 g/dL (14.0-18.0); Lymphocytes 2 % (21-51); MDiff Complete? YES; Mean Corpuscular HGB CONC 35.4 g/dL (32.0-36.0); Mean Corpuscular Hemoglobin 34.3 pg (27.0-31.0); Mean Corpuscular Volume 96.9 fL (78.0-98.0); Mean Platelet Volume 7.9 fL (7.4-10.4); Metamyelocyte 1 % (0-0); Neutrophil 93 % (42-75); Platelet Count 189 thou/uL (130-400); Polychromasia SLIGHT = 2-3 cells (100X) (0-2/hpf); RBC Distribution Width 16.2 % (11.5-14.5); Red Blood Cell (RBC) Count 2.13 mill/uL (4.70-6.10)
[2020-04-23 04:04] LABS: Anion Gap 10 mmol/L (10-20); BUN (Urea Nitrogen) 59 mg/dL (8.4-25.7); Calc. Creatinine Clearance 51 mL/min (70-130); Calcium 7.2 mg/dL (7.8-10.44); Carbon Dioxide 17 mmol/L (23-31); Chloride 117 mmol/L (98-107); Estimated GFR-MDRD 54; Glucose 130 mg/dL (83-110); Potassium 4.3 mmol/L (3.5-5.1); Sodium 140 mmol/L (136-145)
[2020-04-23] MEDS: Aspirin Chewable 81 MG TAB PO SCH (08:50)
[2020-04-23] MEDS: methylPREDNISolone Sod Succ 40 MG VIAL IVP SCH ×2 (08:50→21:21)
[2020-04-23] MEDS: Senokot S 8.6-50 MG TAB PO SCH ×2 (08:51→21:22)
[2020-04-23] MEDS: Ascorbic Acid 500 mg Chewable Tablet PO SCH (08:51)
[2020-04-23] MEDS: Sodium Chloride 0.45% 1,000 ML IV SCH (09:02)
[2020-04-23] MEDS: Pantoprazole 80 MG, Admixture Fee 1 EACH in Sodium Chloride 0.9% 100 ML IVPB SCH ×2 (10:13→21:21)
--- NOTE | 2020-04-23 14:14 | PDOC.HOSPP ---
- Subjective Encounter Date: 04/23/20 Encounter Time: 14:11 Subjective: Patient was seen and examined today. He otherwise had a good night only became agitated requiring BiPAP briefly. Today's his last day on contacts precautions - Objective Vital Signs & Weight: Vital Signs (12 hours) Temp Pulse Resp Pulse Ox 04/23/20 12:00 99.0 F 21 H 89 L 04/23/20 07:46 94 L 04/23/20 07:27 94 L 04/23/20 06:00 17 04/23/20 04:00 97.9 F 14 04/23/20 02:50 55 L Weight Admit Weight 182 lb Weight 183 lb 13.848 oz Most Recent Monitor Data Heart Rate from ECG 71 NIBP 101/54 NIBP BP-Mean 69 Respiration from ECG 19 SpO2 99 I&O: 04/22/20 04/23/20 04/24/20 06:59 06:59 06:59 Intake Total 3307.2 3297.6 420 Output Total 2030 1738 400 Balance 1277.2 1559.6 20 Result Diagrams: 04/23/20 03:27 04/23/20 03:27 Additional Labs: Accuchecks 04/23/20 04/22/20 11:51 17:52 POC Glucose 109 H 183 H Hospitalist ROS - Medication Medications: Active Medications Generic Name Dose Route Start Last Admin Trade Name Freq PRN Reason Stop Dose Admin Ascorbic Acid 1,000 mg 04/19/20 09:00 04/23/20 08:51 Ascorbic Acid 500 Mg Chewable Tablet PO 1,000 mg DAILY PATRICK Administration Aspirin 81 mg 04/12/20 09:00 04/23/20 08:50 Aspirin Chewable 81 Mg Tab PO 81 mg DAILY PATRICK Administration Benzonatate 200 mg 04/12/20 12:57 04/13/20 20:27 Benzonatate 100 Mg Cap PO 200 mg Q6H PRN Administration Cough Guaifenesin/Dextromethorphan 15 ml 04/11/20 02:57 04/12/20 09:47 Guaifenesin Dm 100-10/5 Ml Udcup PO 15 ml Q4H PRN Administration Cough Dexmedetomidine HCl 400 mcg/ 100 mls @ 0 mls/hr 04/18/20 16:00 04/19/20 08:40 Sodium Chloride IVPB 100 mls INF PATRICK Administration Protocol Titrate Pantoprazole Sodium 80 mg/ 100 mls @ 10 mls/hr 04/18/20 20:00 04/23/20 10:13 Miscellaneous Medication 1 IVPB 100 mls each/ Sodium Chloride INF PATRICK Administration Sodium Chloride 1,000 mls @ 100 mls/hr 04/19/20 06:00 04/23/20 09:02 1/2 Normal Saline IV 1,000 mls .Q10H PATRICK Administration Insulin Human Lispro 0 units 04/19/20 07:43 04/22/20 18:19 Humalog 300 Units/3 Ml Vial SC 2 units .MILD SLIDING SCALE PRN Administration Mild Correctional Scale Methylprednisolone Sodium Succinate 40 mg 04/19/20 21:00 04/23/20 08:50 Methylprednisolone Sod Succ 40 Mg Vial IVP 40 mg BID PATRICK Administration Metoprolol Succinate 25 mg 04/12/20 09:00 04/23/20 08:51 Metoprolol Succinate Xl 25 Mg Tab PO 25 mg DAILY PATRICK Administration Senna/Docusate Sodium 1 tab 04/17/20 21:00 04/23/20 08:51 Senokot S 8.6-50 Mg Tab PO Not Given BID PATRICK - Exam General - other findings: Patient in bed, confused, no acute distress Heart: RRR, no murmur, no gallops, no rubs Respiratory - other findings: Coarse breath sounds bilaterally Gastrointestinal - other findings: Soft, nontender bowel sounds present. Extremities - other findings: No edema noted. Hosp A/P - Plan I did directly examine the patient todayCOVID contact restrictions removed. this is a 84-year-old male patient with a history of coronary disease, CKD admitted on account of COVID pneumonia. He was transferred to [facility] for close monitoring on high flow oxygen. He is generally confused at the moment likely delirious. Currently being managed in CCU. Course complicated with anemia concerns for GI bleed. ID and pulmonology following. Gastroenterology following for anemia. Pneumonia secondary to covid Received steroids, plasma and remdesiviranticoagulation held on account of anemia Monitor d-dimer/ferritin/CRP Assistant Foreman/ID following. Acute hypoxic respiratory failure Secondary to covid pneumonia Continue on oxygen therapyon high flow oxygen/BiPAP as needed Pulmonology following. SURJIT on CKD. Increasing creatinine on account of earlier hypotension pressure Creatinine increased to 1.77 from 1.79 currently down to 1.49 and now 1.53. Received IV fluids and blood transfusion We will keep close monitoring. Anemia From GI loss Transfuse as needed GI reviewedno intervention is planned for now Close monitoring H&Hhemoglobin is 7.3 this morning we will continue and transfuse if hemoglobin is less than 7. Gastroenterology followingno active intervention at this point. Carotid artery disease Status post CABG Continue close monitoring Delirium/agitation Likely to long ICU stay Could also be due to complication of COVID Get intermittent patient Continue monitoring Generally declining prognosis Pulmonology planning to talk with family about prognosis We will get palliative care involved VTE prophylaxisSCD
[2020-04-23] MEDS: Lorazepam 2 MG/ML VIAL SLOW IVP PRN (14:52)
[2020-04-23] MEDS: HumaLOG 300 UNITS/3 ML VIAL SC PRN (15:36)
--- NOTE | 2020-04-23 16:00 | PRG ---
DATE OF SERVICE: 04/23/2020 REASON FOR CONSULTATION: Melena, anemia. SUBJECTIVE: Yesterday the patient did have two additional small dark/black-colored bowel movements per nursing staff; however, during the course of the day today, he has had no additional bloody bowel movements. Per nursing staff, he has experienced significant oxygen desaturations with movement of any sort with his O2 sats reaching the 60s with moving his bedsheets to the side. Otherwise, the nursing staff did not state the patient has been endorsing any nausea, vomiting, fevers, chills, hematemesis, or abdominal pain. OBJECTIVE: VITAL SIGNS: Temperature 99, pulse 70, blood pressure 104/59, respiratory rate 21, and saturating 100% on BiPAP. The patient was not examined in direct patient's interaction today due to his current COVID positive status. LABORATORY DATA: CBC with a white blood cell count of 16, hemoglobin 7.3, hematocrit 20.6, and platelets 189. Chemistry with a sodium of 140, potassium 4.3, chloride 117, CO2 of 17, BUN 59, creatinine 1.27, and glucose 130. IMAGING DATA: No current GI imaging is available for review. IMPRESSION: 1. Melenic stools, most likely indicative of an upper gastrointestinal bleed. 2. COVID pneumonia with adequate treatment thus far and removal of contact precautions tomorrow. 3. Anemia of acute blood loss. RECOMMENDATIONS: 1. We would continue to trend the patient's H and H and transfuse as necessary to maintain an H and H of 7/21. 2. Continue to monitor clinically for signs of active GI bleeding. 3. With the cessation of the patient's bloody bowel movements within the last 24 hours, I would continue to trend his H and H only with endoscopy planned if he continues to decrease his H and H, but the patient will most likely need to be intubated for the procedure given his tenuous respiratory status. 4. Continue the patient on pantoprazole drip for the time being. 5. Would refrain from any NSAIDs unless clinically indicated. We will continue to follow. Please call with any questions. Job ID: [id number]
[2020-04-23 16:39] LABS: Hemoglobin 7.7 g/dL (14.0-18.0); Platelet Count 165 thou/uL (130-400)
--- NOTE | 2020-04-23 17:03 | PRG ---
DATE OF SERVICE: 04/23/2020 SUBJECTIVE: Mr. Hill appears a little bit stronger. He has no signs of muscle fatigue. He is on high-flow. He is still sleeping on BiPAP. OBJECTIVE: VITAL SIGNS: Heart rate 70, blood pressure 104/59, respiratory rates in the 20s, and oximetry is 100%. LUNGS: Unchanged. HEART: Unchanged. ABDOMEN: Unchanged. His isolation will be discontinued today. LABORATORY DATA: White count 16, hemoglobin 7.3, platelets 189. Still mildly hyperchloremic. BUN is 59, which I suspect is from blood in his gut. Creatinine is 1.27. IMPRESSION: 1. COVID pneumonia, clinically improving. 2. Gastrointestinal blood loss. 3. Encephalopathy, secondary to advanced age and critical illness, given another unit of packed cells today. Job ID: [id number]
[2020-04-24 05:27] LABS: Band 12 % (5-11); Hemoglobin 9.6 g/dL (14.0-18.0); Lymphocytes 1 % (21-51); MDiff Complete? YES; Mean Corpuscular HGB CONC 35.2 g/dL (32.0-36.0); Mean Corpuscular Hemoglobin 33.6 pg (27.0-31.0); Mean Corpuscular Volume 95.4 fL (78.0-98.0); Mean Platelet Volume 8.2 fL (7.4-10.4); Monocytes 2 % (0-10); Neutrophil 85 % (42-75); Platelet Count 190 thou/uL (130-400); Red Blood Cell (RBC) Count 2.86 mill/uL (4.70-6.10); White Blood Cell (WBC) Count 20.6 thou/uL (4.8-10.8)
[2020-04-24 05:31] LABS: Anion Gap 10 mmol/L (10-20); BUN (Urea Nitrogen) 42 mg/dL (8.4-25.7); Calc. Creatinine Clearance 62 mL/min (70-130); Calcium 7.8 mg/dL (7.8-10.44); Carbon Dioxide 20 mmol/L (23-31); Chloride 113 mmol/L (98-107); Estimated GFR-MDRD 67; Glucose 78 mg/dL (83-110); Potassium 4.2 mmol/L (3.5-5.1); Sodium 139 mmol/L (136-145)
[2020-04-24] MEDS: Sodium Chloride 0.45% 1,000 ML IV SCH ×3 (08:48→13:49)
[2020-04-24] MEDS: Pantoprazole 80 MG, Admixture Fee 1 EACH in Sodium Chloride 0.9% 100 ML IVPB SCH ×2 (08:49→20:31)
[2020-04-24] MEDS: methylPREDNISolone Sod Succ 40 MG VIAL IVP SCH ×2 (08:52→20:32)
[2020-04-24] MEDS: Ascorbic Acid 500 mg Chewable Tablet PO SCH (08:59)
[2020-04-24] MEDS: Aspirin Chewable 81 MG TAB PO SCH (08:59)
[2020-04-24] MEDS: Senokot S 8.6-50 MG TAB PO SCH ×2 (09:01→20:40)
[2020-04-24] MEDS: Lorazepam 2 MG/ML VIAL SLOW IVP PRN (09:41)
[2020-04-24 10:05] LABS: Actual Bicarbonate (HCO3a) 17.3 mEq/L (22-28); CO2 Tension 26.3 mmHg (35.0-45.0); Calcium, Ionized (arterial) 1.16 mmol/L (1.12-1.30); Carboxyhemoglobin (COHb) 1.3 gm% (0.0-3.0); Hemoglobin (Hb) 8.6 g/dL (14.0-18.0); Potassium - ABG Lab 3.85 mmol/L (3.70-5.30); pH, Arterial 7.44 (7.35-7.45)
[2020-04-24 10:07] LABS: O2 Tension (PaO2), arterial 37.7 mmHg (> 60.0)
[2020-04-24 10:12] LABS: Puncture Site RRA
[2020-04-24 10:13] LABS: ALV-art Gradient 499.825 mmHg (0-20)
--- NOTE | 2020-04-24 10:14 | PRG ---
DATE OF SERVICE: 04/24/2020 SUBJECTIVE: I talked with the nurse, Mr. Hill had no bloody stools or melena overnight. He remains in the ICU on BiPAP, high-flow oxygen. Medications reviewed. Continues on Protonix drip. OBJECTIVE: GENERAL: He is awake, I think he recognized that we have known him from outside the hospital previously. He is alert. He can converse with me. VITAL SIGNS: Pulse 94, blood pressure 101/77, temperature is 97.4, bladder temp 100. LABORATORY DATA: White count 20,000; hemoglobin 9.6, up from 7.7 yesterday; platelet count 190; segs, 12% bands. Sodium 139, potassium 4.2, BUN and creatinine are 42 and 1. ASSESSMENT: 1. Gastrointestinal bleed, etiology unclear. Hemoglobin is 9 today. Received a unit of blood yesterday and prior to that, one on the th, two on the , one on . With the elevated BUN when he started dropping his hemoglobin, this probably is upper gastrointestinal bleed. He is on a Protonix drip at this point in time with dropping BUN hopefully his bleeding has resolved. If he continues to remain stable over the next couple of days, may consider reinstituting his anticoagulation, high increased risk for deep venous thrombosis and pulmonary embolus with this COVID. 2. COVID status seems to be improving. We will touch base with Pulmonology today. Job ID: [id number]
[2020-04-24] MEDS ORDERED: Enoxaparin Sodium 60 MG/0.6 ML SYRINGE SC SCH ×2 (13:54→21:00)
--- NOTE | 2020-04-24 14:45 | PRG ---
DATE OF SERVICE: 04/24/[address] Penaloza, he has been concerned that Mr. Hill is a little more encephalopathic today, confused, and had to go back on BiPAP. In talking with his nurse, he has not had any bowel movements to indicate ongoing bleeding. With his white count going up today, Dr. Penaloza was concerned as I was about possible pulmonary embolus. I think at this time because of the hypercoagulable effects of COVID, I think we should go ahead and put him back on a little bit of Lovenox. We will continue his PPI and watch his hemoglobin. If there are signs of hemorrhage, we can always stop that. However, at this time with a little bit of a subacute deterioration today and being off the blood thinners since last weekend after conferring with Dr. Penaloza, I agree we should go ahead and go back on the Lovenox. We will follow along with you. Job ID: [id number]
--- NOTE | 2020-04-24 15:50 | PDOC.HOSPP ---
- Subjective Encounter Date: 04/24/20 Encounter Time: 10:00 Subjective: Patient seen and examined in bed. She was on BiPAP. Was noted to become more agitated and confused hypoxia His is at his bedside. - Objective Vital Signs & Weight: Vital Signs (12 hours) Temp Pulse Resp Pulse Ox 04/24/20 14:58 60 04/24/20 12:00 97 04/24/20 10:14 77 04/24/20 08:00 97.4 F L 04/24/20 07:46 92 L 04/24/20 07:38 22 H 95 04/24/20 07:36 81 04/24/20 04:00 22 H Weight Admit Weight 182 lb Weight 184 lb 11.2 oz Most Recent Monitor Data Heart Rate from ECG 58 NIBP 102/65 NIBP BP-Mean 77 Respiration from ECG 31 SpO2 98 I&O: 04/23/20 04/24/20 04/25/20 06:59 06:59 06:59 Intake Total 3297.6 2634 0 Output Total 1738 1585 615 Balance 1559.6 1049 -615 Result Diagrams: 04/24/20 04:15 04/24/20 04:15 Additional Labs: Accuchecks 04/24/20 04/23/20 04/23/20 10:53 21:59 05:49 POC Glucose 101 H 97 99 04/22/20 21:36 POC Glucose 142 H Hospitalist ROS - Medication Medications: Active Medications Generic Name Dose Route Start Last Admin Trade Name Freq PRN Reason Stop Dose Admin Ascorbic Acid 1,000 mg 04/19/20 09:00 04/24/20 08:59 Ascorbic Acid 500 Mg Chewable Tablet PO Not Given DAILY PATRICK Aspirin 81 mg 04/12/20 09:00 04/24/20 08:59 Aspirin Chewable 81 Mg Tab PO Not Given DAILY PATRICK Benzonatate 200 mg 04/12/20 12:57 04/13/20 20:27 Benzonatate 100 Mg Cap PO 200 mg Q6H PRN Administration Cough Guaifenesin/Dextromethorphan 15 ml 04/11/20 02:57 04/12/20 09:47 Guaifenesin Dm 100-10/5 Ml Udcup PO 15 ml Q4H PRN Administration Cough Dexmedetomidine HCl 400 mcg/ 100 mls @ 0 mls/hr 04/18/20 16:00 04/24/20 10:05 Sodium Chloride IVPB 100 mls INF PATRICK Administration Protocol Titrate Pantoprazole Sodium 80 mg/ 100 mls @ 10 mls/hr 04/18/20 20:00 04/24/20 08:49 Miscellaneous Medication 1 IVPB 100 mls each/ Sodium Chloride INF PATRICK Administration Sodium Chloride 1,000 mls @ 100 mls/hr 04/19/20 06:00 04/24/20 13:49 1/2 Normal Saline IV 1,000 mls .Q10H PATRICK Administration Insulin Human Lispro 0 units 04/19/20 07:43 04/23/20 15:36 Humalog 300 Units/3 Ml Vial SC 2 units .MILD SLIDING SCALE PRN Administration Mild Correctional Scale Lorazepam 0.5 mg 04/21/20 02:47 04/24/20 09:41 Lorazepam 2 Mg/Ml Vial SLOW IVP 0.5 mg Q6H PRN Administration ANXIETY/AGITATION Methylprednisolone Sodium Succinate 40 mg 04/19/20 21:00 04/24/20 08:52 Methylprednisolone Sod Succ 40 Mg Vial IVP 40 mg BID PATRICK Administration Metoprolol Succinate 25 mg 04/12/20 09:00 04/24/20 09:01 Metoprolol Succinate Xl 25 Mg Tab PO Not Given DAILY PATRICK Senna/Docusate Sodium 1 tab 04/17/20 21:00 04/24/20 09:01 Senokot S 8.6-50 Mg Tab PO Not Given BID PATRICK - Exam General - other findings: Patient in bed, on BiPAP, agitated and confused Heart: RRR, no murmur, no gallops Respiratory - other findings: Coarse breath sounds bilaterally Gastrointestinal: soft, non-distended, normal bowel sounds Extremities: no cyanosis, no clubbing, no edema Hosp A/P - Plan this is a 84-year-old male patient with a history of coronary disease, CKD admitted on account of COVID pneumonia. He was transferred to IMCU for close monitoring on high flow oxygen but was eventually transferred to CCU for BiPAP. He is currently off COVID contact precautions however no significant improvement in his mental state. Progress complicated by anemia due to possible GI bleed in the setting of anticoagulation Worsening agitation overnight currently on BiPAP for respiratory support. Pneumonia secondary to covid Received steroids, plasma and remdesiviranticoagulation held on account of anemia Monitor d-dimer/ferritin/CRP Senior Java Ui Developer/ID following. Acute hypoxic respiratory failure Secondary to covid pneumonia Continue on oxygen therapyon high flow oxygen/BiPAP as needed Pulmonology following. SURJIT on CKD. Resolved We will keep close monitoring. Anemia From GI loss Status post transfusions. Hemoglobin stable above 9 today Continue monitoring Gastroenterology followingno active intervention at this point. Carotid artery disease Status post CABG Continue home aspirin Continue close monitoring Delirium/agitation Likely to long ICU stay Could also be due to complication of COVID Get intermittent patient Continue monitoring Generally declining prognosis Pulmonology planning to talk with family about prognosis We will get palliative care involved VTE prophylaxisSCD
--- NOTE | 2020-04-24 17:27 | RAD ---
CHEST 1 VIEW: INDICATION: History of COVID pneumonia. COMPARISON: Prior exam dated 04/16/2020. FINDINGS: There is worsening bilateral airspace disease most prominent within the left lung and right lower lob e. Cardiomegaly is stable. Pulmonary vascular congestion persists. There are small bilateral pleur al effusions, left greater than right. No pneumothorax or acute osseous abnormality is evident. IMPRESSION: 1. Worsening bilateral airspace disease may reflect worsening pneumonia; however, there is cardiomeg laura with pulmonary vascular congestion. A component of CHF is of concern. 2. Postsurgical change of a prior coronary artery bypass graft. No pneumothorax. POS: BH
[2020-04-24 18:07] LABS: Hemoglobin 7.8 g/dL (14.0-18.0); Platelet Count 134 thou/uL (130-400)
[2020-04-24] MEDS ORDERED: Furosemide 40 MG/4 ML VIAL IVP SCH (22:00)
--- NOTE | 2020-04-24 22:58 | PRG ---
DATE OF SERVICE: 04/24/2020 SUBJECTIVE: Mr. Hill is afebrile. He was encephalopathic earlier today and had to be placed on noninvasive ventilation. Blood pressure this evening is 146/81, heart rate is in 60s, respiratory rates in the teens, oximetry is 99% to 100%. OBJECTIVE: LUNGS: Unchanged. HEART: Unchanged. ABDOMEN: Unchanged. LABORATORY DATA: White count is 20, hemoglobin 9.6, platelets 190. Hemoglobin dropped to 7.8 this evening. BUN 42, creatinine 1.05. IMPRESSION: 1. Encephalopathy, which has been persistent intermittently as long as he has been here. 2. Gastrointestinal blood loss. 3. He clinically appears to have stopped bleeding, but he did drop his hemoglobin by 1.5 this evening. I would continue to watch this for now. We started his anticoagulation at a lower dose given his high risk for thrombotic events. Chest radiograph still shows bilateral infiltrates. Intake and outputs have been positive for several days, so we will give him a generous dose of a diuretic this evening. Would decrease his IV fluids. Job ID: [id number]
[2020-04-25] MEDS: Sodium Chloride 0.45% 1,000 ML IV SCH ×2 (00:03→12:33)
[2020-04-25 04:53] LABS: Anion Gap 12 mmol/L (10-20); BUN (Urea Nitrogen) 44 mg/dL (8.4-25.7); Calc. Creatinine Clearance 55 mL/min (70-130); Calcium 7.5 mg/dL (7.8-10.44); Carbon Dioxide 19 mmol/L (23-31); Chloride 111 mmol/L (98-107); Estimated GFR-MDRD 59; Glucose 114 mg/dL (83-110); Potassium 4.2 mmol/L (3.5-5.1); Sodium 138 mmol/L (136-145)
[2020-04-25 05:07] VITALS: BMI 29.0
[2020-04-25] MEDS: Pantoprazole 80 MG, Admixture Fee 1 EACH in Sodium Chloride 0.9% 100 ML IVPB SCH (06:29)
[2020-04-25 07:57] LABS: Anisocytosis SLIGHT = 6-15 cells (100X) (0-5/hpf); Band 2 % (5-11); Hemoglobin 8.7 g/dL (14.0-18.0); Lymphocytes 1 % (21-51); MDiff Complete? YES; Mean Corpuscular HGB CONC 33.9 g/dL (32.0-36.0); Mean Corpuscular Hemoglobin 32.6 pg (27.0-31.0); Mean Corpuscular Volume 96.1 fL (78.0-98.0); Mean Platelet Volume 8.5 fL (7.4-10.4); Neutrophil 97 % (42-75); Platelet Count 159 thou/uL (130-400); Platelet Morphology Comment Appears Adequate; RBC Distribution Width 15.8 % (11.5-14.5); Red Blood Cell (RBC) Count 2.65 mill/uL (4.70-6.10); White Blood Cell (WBC) Count 16.3 thou/uL (4.8-10.8)
[2020-04-25 07:58] LABS: Toxic Granulation SLIGHT
--- NOTE | 2020-04-25 08:18 | PRG ---
DATE OF SERVICE: 04/25/2020 SUBJECTIVE: Mr. Hill did well overnight. He diuresed over 2 L. He is oriented and cooperative this morning. Lungs are clear anteriorly. Heart, regular rhythm. Abdomen is soft. For some reason, his CBC results are not back. His renal function is stable. His creatinine is 1.18 after 3145 mL diuresis yesterday. He is negative 344. Probably benefit from another dose of Lasix this weekend if his blood pressure will tolerate it. His blood pressure this morning was running right around 100 systolic, so he will not be diuresed at this time. His hemoglobin drops. He will need to be transfused. IMPRESSION: 1. COVID pneumonia. 2. Gastrointestinal blood loss, felt to be upper GI, being treated supportively with transfusions. 3. Iatrogenic volume overloaded related to transfusions and correction of an elevated BUN and creatinine. 4. Acute on chronic kidney disease, improved. Job ID: [id number]
[2020-04-25] MEDS: Ascorbic Acid 500 mg Chewable Tablet PO SCH (08:54)
[2020-04-25] MEDS: Senokot S 8.6-50 MG TAB PO SCH ×2 (08:55→20:54)
[2020-04-25] MEDS: Aspirin Chewable 81 MG TAB PO SCH (08:55)
[2020-04-25] MEDS: Enoxaparin Sodium 40 MG/0.4 ML SYRINGE SC SCH ×2 (09:01→20:54)
[2020-04-25] MEDS: methylPREDNISolone Sod Succ 40 MG VIAL IVP SCH ×2 (09:01→20:54)
[2020-04-25 16:14] LABS: Hemoglobin 9.2 g/dL (14.0-18.0); Platelet Count 163 thou/uL (130-400)
[2020-04-25] MEDS: Lorazepam 2 MG/ML VIAL SLOW IVP PRN (21:07)
--- NOTE | 2020-04-25 23:34 | PDOC.HOSPP ---
- Subjective Encounter Date: 04/25/20 Encounter Time: 12:30 Subjective: Patient was seen and examined in bed. He had episodes of desaturation for which he was placed on BiPAP overnight. Also having increasing confusion and agitation. - Objective Vital Signs & Weight: Vital Signs (12 hours) Temp Pulse Pulse Ox 04/25/20 20:00 98 04/25/20 19:58 117 H 04/25/20 19:00 99.6 F 04/25/20 16:00 97.7 F 04/25/20 12:00 98.2 F Weight Admit Weight 182 lb Weight 185 lb 6.54 oz Most Recent Monitor Data Heart Rate from ECG 109 NIBP 115/85 NIBP BP-Mean 95 Respiration from ECG 25 SpO2 96 I&O: 04/24/20 04/25/20 04/26/20 06:59 06:59 06:59 Intake Total 2634 2800.2 306.8 Output Total 1585 3145 1475 Balance 1049 -344.8 -1168.2 Result Diagrams: 04/25/20 15:58 04/25/20 03:50 Additional Labs: Accuchecks 04/25/20 04/25/20 04/25/20 21:15 17:06 11:01 POC Glucose 88 114 H 99 04/24/20 16:04 POC Glucose 107 H Hospitalist ROS - Medication Medications: Active Medications Generic Name Dose Route Start Last Admin Trade Name Freq PRN Reason Stop Dose Admin Ascorbic Acid 1,000 mg 04/19/20 09:00 04/25/20 08:54 Ascorbic Acid 500 Mg Chewable Tablet PO Not Given DAILY [facility] Aspirin 81 mg 04/12/20 09:00 04/25/20 08:55 Aspirin Chewable 81 Mg Tab PO Not Given DAILY PATRICK Benzonatate 200 mg 04/12/20 12:57 04/13/20 20:27 Benzonatate 100 Mg Cap PO 200 mg Q6H PRN Administration Cough Enoxaparin Sodium 40 mg 04/25/20 09:00 04/25/20 20:54 Enoxaparin Sodium 40 Mg/0.4 Ml Syringe SC 40 mg 0900,2100 PATRICK Administration Guaifenesin/Dextromethorphan 15 ml 04/11/20 02:57 04/12/20 09:47 Guaifenesin Dm 100-10/5 Ml Udcup PO 15 ml Q4H PRN Administration Cough Dexmedetomidine HCl 400 mcg/ 100 mls @ 0 mls/hr 04/18/20 16:00 04/25/20 12:42 Sodium Chloride IVPB 100 mls INF PATRICK Administration Protocol Titrate Pantoprazole Sodium 80 mg/ 100 mls @ 10 mls/hr 04/18/20 20:00 04/25/20 06:29 Miscellaneous Medication 1 IVPB 100 mls each/ Sodium Chloride INF PATRICK Administration Sodium Chloride 1,000 mls @ 0 mls/hr 04/24/20 21:58 04/25/20 12:33 1/2 Normal Saline IV 1,000 mls .Q0M PATRICK Administration KVO Insulin Human Lispro 0 units 04/19/20 07:43 04/23/20 15:36 Humalog 300 Units/3 Ml Vial SC 2 units .MILD SLIDING SCALE PRN Administration Mild Correctional Scale Lorazepam 0.5 mg 04/21/20 02:47 04/25/20 21:07 Lorazepam 2 Mg/Ml Vial SLOW IVP 0.5 mg Q6H PRN Administration ANXIETY/AGITATION Methylprednisolone Sodium Succinate 40 mg 04/19/20 21:00 04/25/20 20:54 Methylprednisolone Sod Succ 40 Mg Vial IVP 40 mg BID PATRICK Administration Metoprolol Succinate 25 mg 04/12/20 09:00 04/25/20 09:02 Metoprolol Succinate Xl 25 Mg Tab PO Not Given DAILY PATRICK Senna/Docusate Sodium 1 tab 04/17/20 21:00 04/25/20 20:54 Senokot S 8.6-50 Mg Tab PO Not Given BID PATRICK - Exam General - other findings: Patient impaired, BiPAP in place. Restrained. Heart: RRR, no murmur, no gallops, no rubs Respiratory - other findings: Reduced air entry bilaterally. Coarse breath sounds bilaterally Gastrointestinal: soft, non-distended, normal bowel sounds Extremities: no cyanosis, no clubbing Neurological - other findings: Generally confused. Hosp A/P - Plan this is a 84-year-old male patient with a history of coronary disease, CKD admitted on account of COVID pneumonia. He was transferred to IMCU for close monitoring on high flow oxygen but was eventually transferred to CCU for BiPAP. He is currently off COVID contact precautions however no significant improvement in his mental state. Progress complicated by anemia due to possible GI bleed in the setting of anticoagulation receiving transfusions Worsening agitation overnight currently on BiPAP for respiratory support. Pneumonia secondary to covid Received steroids, plasma and remdesiviranticoagulation held on account of anemia Monitor d-dimer/ferritin/CRP Binding Folder Machine/ID following. Acute hypoxic respiratory failure Secondary to covid pneumonia Continue on oxygen therapyon high flow oxygen/BiPAP as needed Pulmonology following. SURJIT on CKD. Resolved We will keep close monitoring. Anemia Monitor H&H Transfusion with hemoglobin less than 7 Gastroenterology followingno active intervention at this point. Carotid artery disease Status post CABG Continue home aspirin Continue close monitoring Delirium/agitation Likely to long ICU stay Could also be due to complication of COVID Continue monitoring VTE prophylaxisSCD
[2020-04-26] MEDS: Pantoprazole 80 MG, Admixture Fee 1 EACH in Sodium Chloride 0.9% 100 ML IVPB SCH (02:09)
[2020-04-26 05:33] LABS: Anion Gap 13 mmol/L (10-20); BUN (Urea Nitrogen) 41 mg/dL (8.4-25.7); Calc. Creatinine Clearance 59 mL/min (70-130); Calcium 7.6 mg/dL (7.8-10.44); Carbon Dioxide 18 mmol/L (23-31); Chloride 111 mmol/L (98-107); Estimated GFR-MDRD 64; Glucose 139 mg/dL (83-110); Potassium 4.1 mmol/L (3.5-5.1); Sodium 138 mmol/L (136-145)
[2020-04-26 05:46] LABS: Band 7 % (5-11); Hemoglobin 8.5 g/dL (14.0-18.0); MDiff Complete? YES; Mean Corpuscular HGB CONC 33.9 g/dL (32.0-36.0); Mean Corpuscular Hemoglobin 32.1 pg (27.0-31.0); Mean Corpuscular Volume 94.8 fL (78.0-98.0); Mean Platelet Volume 8.3 fL (7.4-10.4); Metamyelocyte 2 % (0-0); Monocytes 1 % (0-10); Neutrophil 90 % (42-75); Platelet Count 157 thou/uL (130-400); Platelet Morphology Comment Appears Adequate; RBC Distribution Width 15.8 % (11.5-14.5); RBC Morphology Normal; Red Blood Cell (RBC) Count 2.66 mill/uL (4.70-6.10); White Blood Cell (WBC) Count 17.1 thou/uL (4.8-10.8)
[2020-04-26] MEDS: Aspirin Chewable 81 MG TAB PO SCH (08:49)
[2020-04-26] MEDS: Ascorbic Acid 500 mg Chewable Tablet PO SCH (08:50)
[2020-04-26] MEDS: Senokot S 8.6-50 MG TAB PO SCH ×2 (08:50→20:44)
[2020-04-26] MEDS: methylPREDNISolone Sod Succ 40 MG VIAL IVP SCH ×2 (08:54→20:44)
[2020-04-26] MEDS: Enoxaparin Sodium 40 MG/0.4 ML SYRINGE SC SCH ×2 (08:55→20:44)
--- NOTE | 2020-04-26 09:50 | PRG ---
DATE OF SERVICE: 04/26/2020 SUBJECTIVE: The patient is actually doing quite well on high-flow nasal cannula, but he is requiring about 91% FiO2. OBJECTIVE: VITAL SIGNS: Temperature 98.8, pulse 108, respirations 18, and blood pressure 127/59. HEENT: Unremarkable. NECK: No JVD. LUNGS: Coarse rhonchi bilaterally. CARDIAC: S1 and S2. Regular. ABDOMEN: Soft. EXTREMITIES: No edema. LABORATORY DATA: White blood cell count 17, hematocrit 25.2, and platelet count 157. Sodium 138, potassium 4.1, chloride 111, CO2 of 18, BUN 41, creatinine 1.1, and glucose 139. ASSESSMENT: 1. COVID-19 pneumonia. 2. Acute hypoxic respiratory failure. 3. Advanced age. 4. Gastrointestinal blood loss. PLAN: 1. Wean oxygen slowly as tolerated. 2. Continue anticoagulation, steroids, and high-flow oxygen. Job ID: [id number]
--- NOTE | 2020-04-26 12:14 | PDOC.HOSPP ---
- Subjective Encounter Date: 04/26/20 Encounter Time: 09:45 Subjective: awake, oriented and responds well to verbal stimuli is on high flow O2 - Objective Vital Signs & Weight: Vital Signs (12 hours) Temp Pulse Ox 04/26/20 08:00 98.0 F 92 L Weight Admit Weight 182 lb Weight 187 lb 6.287 oz Most Recent Monitor Data Heart Rate from ECG 112 NIBP 134/81 NIBP BP-Mean 98 Respiration from ECG 23 SpO2 93 I&O: 04/25/20 04/26/20 04/27/20 06:59 06:59 06:59 Intake Total 2800.2 541.8 60 Output Total 3145 2065 305 Balance -344.8 -1523.2 -245 Result Diagrams: 04/26/20 05:00 04/26/20 05:00 Additional Labs: Accuchecks 04/25/20 04/25/20 21:15 17:06 POC Glucose 88 114 H Hospitalist ROS - Medication Medications: Active Medications Generic Name Dose Route Start Last Admin Trade Name Freq PRN Reason Stop Dose Admin Ascorbic Acid 1,000 mg 04/19/20 09:00 04/26/20 08:50 Ascorbic Acid 500 Mg Chewable Tablet PO 1,000 mg DAILY PATRICK Administration Aspirin 81 mg 04/12/20 09:00 04/26/20 08:49 Aspirin Chewable 81 Mg Tab PO Not Given DAILY PATRICK Benzonatate 200 mg 04/12/20 12:57 04/13/20 20:27 Benzonatate 100 Mg Cap PO 200 mg Q6H PRN Administration Cough Enoxaparin Sodium 40 mg 04/25/20 09:00 04/26/20 08:55 Enoxaparin Sodium 40 Mg/0.4 Ml Syringe SC 40 mg 0900,2099 PATRICK Administration Guaifenesin/Dextromethorphan 15 ml 04/11/20 02:57 04/12/20 09:47 Guaifenesin Dm 100-10/5 Ml Udcup PO 15 ml Q4H PRN Administration Cough Dexmedetomidine HCl 400 mcg/ 100 mls @ 0 mls/hr 04/18/20 16:00 04/25/20 12:42 Sodium Chloride IVPB 100 mls INF PATRICK Administration Protocol Titrate Pantoprazole Sodium 80 mg/ 100 mls @ 10 mls/hr 04/18/20 20:00 04/26/20 02:09 Miscellaneous Medication 1 IVPB 100 mls each/ Sodium Chloride INF PATRICK Administration Sodium Chloride 1,000 mls @ 0 mls/hr 04/24/20 21:58 04/25/20 12:33 1/2 Normal Saline IV 1,000 mls .Q0M PATRICK Administration KVO Insulin Human Lispro 0 units 04/19/20 07:43 04/23/20 15:36 Humalog 300 Units/3 Ml Vial SC 2 units .MILD SLIDING SCALE PRN Administration Mild Correctional Scale Lorazepam 0.5 mg 04/21/20 02:47 04/25/20 21:07 Lorazepam 2 Mg/Ml Vial SLOW IVP 0.5 mg Q6H PRN Administration ANXIETY/AGITATION Methylprednisolone Sodium Succinate 40 mg 04/19/20 21:00 04/26/20 08:54 Methylprednisolone Sod Succ 40 Mg Vial IVP 40 mg BID PATRICK Administration Metoprolol Succinate 25 mg 04/12/20 09:00 04/26/20 08:54 Metoprolol Succinate Xl 25 Mg Tab PO 25 mg DAILY PATRICK Administration Senna/Docusate Sodium 1 tab 04/17/20 21:00 04/26/20 08:50 Senokot S 8.6-50 Mg Tab PO Not Given BID PATRICK - Exam General Appearance: awake alert Eye: PERRL, anicteric sclera ENT: no oropharyngeal lesions, dry oral mucosa Neck: supple, no JVD Heart: RRR, no murmur Respiratory: no wheezes, rhonchi Gastrointestinal: soft, non-tender, non-distended, normal bowel sounds Extremities: no cyanosis, 1+ LE edema Neurological: cranial nerve grossly intact, no focal deficits Hosp A/P (1) Pneumonia due to COVID-19 virus Code(s): U07.1 - COVID-19; J12.89 - OTHER VIRAL PNEUMONIA Status: Acute (2) Acute respiratory failure with hypoxia Code(s): J96.01 - ACUTE RESPIRATORY FAILURE WITH HYPOXIA Status: Acute (3) GI bleed Code(s): K92.2 - GASTROINTESTINAL HEMORRHAGE, UNSPECIFIED Status: Resolved Qualifiers: GI bleed type/associated pathology: unspecified gastrointestinal hemorrhage type Qualified Code(s): K92.2 - Gastrointestinal hemorrhage, unspecified (4) Acute blood loss anemia Code(s): D62 - ACUTE POSTHEMORRHAGIC ANEMIA Status: Acute (5) CAD (coronary artery disease) Code(s): I25.10 - ATHSCL HEART DISEASE OF [place] CORONARY ARTERY W/O ANG PCTRS Status: Chronic Qualifiers: Coronary Disease-Associated Artery/Lesion type: bypass graft [place] vs. transplanted heart: [place] heart Associated angina: without angina Qualified Code(s): I25.810 - Atherosclerosis of coronary artery bypass graft(s) without angina pectoris - Plan is on asp, lovenox q12h, solumedrol, toprol xl has recieved remdesivir, convalescent plasma for covid is currently on high flow (off bipap from last evening) slowly recovering OOB to chair and mobilize as tolerated with high flow h/h in am renal function holding up
[2020-04-26] MEDS: Pantoprazole 40 MG VIAL IVP SCH (14:46)
--- NOTE | 2020-04-26 14:59 | PRG ---
DATE OF SERVICE: 04/26/2020 SUBJECTIVE: Mr. Hill is on nasal pillow, high-flow oxygen. He is off the BiPAP. He is actually conversant, awake, alert. He denies any prior knowledge of ulcers. He denies any abdominal pain or nausea. He feels a little warm. Denies being short of breath. OBJECTIVE: VITAL SIGNS: Temperature is 98, pulse is 105 to 109, blood pressure is 119/71. ABDOMEN: Soft and nontender. EXTREMITIES: No clubbing, cyanosis, or edema. LABORATORY DATA: White count 17,000; hemoglobin is 8.5, it was 8.7 on the 2nd, 9.2 at 1500 yesterday, 8.5 this morning; platelet count is 90,000. Sodium 138, potassium 4.1, BUN and creatinine of 41 and 1.1, stable. ASSESSMENT: 1. COVID-19 infection with severe respiratory failure, improving. 2. GI bleed, empirically treated with PPIs. His Lovenox was held for a time. It has been reinstituted yesterday a lower dose as he is very high risk for complication to thrombosis. PLAN: 1. Continue IV Protonix q.12 hours . 2. Monitor hemoglobin and hematocrit daily. 3. If Pulmonary feels strongly about going back up to full dose anticoagulation, I think that is fine. We will discuss with Dr. Fontaine. Job ID: [id number]
[2020-04-26] MEDS: Lorazepam 2 MG/ML VIAL SLOW IVP PRN (20:44)
[2020-04-27] MEDS: Lorazepam 2 MG/ML VIAL SLOW IVP PRN (02:45)
[2020-04-27 03:52] LABS: Anion Gap 12 mmol/L (10-20); BUN (Urea Nitrogen) 36 mg/dL (8.4-25.7); Calc. Creatinine Clearance 62 mL/min (70-130); Calcium 7.6 mg/dL (7.8-10.44); Carbon Dioxide 21 mmol/L (23-31); Chloride 110 mmol/L (98-107); Estimated GFR-MDRD 66; Glucose 149 mg/dL (83-110); Potassium 4.1 mmol/L (3.5-5.1); Sodium 139 mmol/L (136-145)
[2020-04-27 04:16] LABS: Hemoglobin 8.3 g/dL (14.0-18.0); Mean Corpuscular HGB CONC 33.1 g/dL (32.0-36.0); Mean Corpuscular Hemoglobin 31.7 pg (27.0-31.0); Mean Corpuscular Volume 95.8 fL (78.0-98.0); Mean Platelet Volume 8.4 fL (7.4-10.4); Platelet Count 143 thou/uL (130-400); RBC Distribution Width 15.5 % (11.5-14.5); Red Blood Cell (RBC) Count 2.63 mill/uL (4.70-6.10)
[2020-04-27 04:17] LABS: Band 1 % (5-11); Hypochromia SLIGHT = 6-15 cells (100X) (0-5/hpf); Lymphocytes 1 % (21-51); MDiff Complete? YES; Neutrophil 98 % (42-75); Platelet Morphology Comment Appears Adequate
[2020-04-27] MEDS: Pantoprazole 40 MG VIAL IVP SCH ×2 (05:13→19:40)
[2020-04-27] MEDS: Senokot S 8.6-50 MG TAB PO SCH ×2 (09:00→21:43)
[2020-04-27] MEDS: Aspirin Chewable 81 MG TAB PO SCH (09:00)
[2020-04-27] MEDS: Ascorbic Acid 500 mg Chewable Tablet PO SCH (09:00)
[2020-04-27] MEDS: methylPREDNISolone Sod Succ 40 MG VIAL IVP SCH ×2 (09:35→21:44)
[2020-04-27] MEDS: Enoxaparin Sodium 40 MG/0.4 ML SYRINGE SC SCH (09:35)
--- NOTE | 2020-04-27 10:41 | PRG ---
DATE OF SERVICE: 04/27/2020 SUBJECTIVE: The patient remains on BiPAP because he keeps pulling his high-flow oxygen off. OBJECTIVE: VITAL SIGNS: Temperature 98.4, pulse 82, blood pressure 119/61. HEENT: Unremarkable. NECK: No JVD. LUNGS: Crackles bilaterally. CARDIAC: S1 and S2, regular. ABDOMEN: Soft. EXTREMITIES: No edema. LABORATORY DATA: White blood cell count 14, hematocrit 25.2, and platelet count 143. D-dimer is less than 0.27. Sodium 139, potassium 4.1, chloride 110, CO2 of 21, BUN 36, creatinine 1.0, glucose 149. ASSESSMENT: 1. COVID-19 pneumonia. 2. Acute hypoxic respiratory failure. 3. Advanced age. 4. Gastrointestinal blood loss. PLAN: Supportive care with BiPAP, continued anticoagulation, and IV steroids. His prognosis remains extremely poor for functional recovery. Job ID: [id number]
--- NOTE | 2020-04-27 11:27 | CT ---
CT Abdomen Pelvis WO Con 04/27/2020 10:54 AM HISTORY: Acute left lower quadrant abdominal pain. GI bleed. COMPARISON: CTA chest on 04/10/2020 Technique: Multiple contiguous axial CT images are obtained through the abdomen and pelvis without IV contrast. Coronal reformats are provided. FINDINGS: This examination is limited for the evaluation of solid organs and vascular structures due to the lac k of intravenous contrast. Lower Chest: Again noted are groundglass opacities and slight patchy parenchymal densities at each ashanti ng base, and a small left pleural effusion is now present. Dense vascular calcifications are seen in the visualized coronary arteries as well as involving the v isualized thoracic aorta. Abdomen: Liver: A 1.3 cm hypodense lesion is seen in the lateral segment left hepatic lobe also seen on recent CT exam is difficult to characterize on this nonenhanced CT exam. Gallbladder: Within normal limits for CT imaging. Pancreas: Grossly normal nonenhanced CT appearance. Spleen: Grossly normal nonenhanced CT appearance. Adrenals: Grossly normal nonenhanced CT appearance. Kidneys: No renal calculi are visualized, and there is no evidence of hydronephrosis. Ureters: No ureteral calculus is seen.. Pelvis: Urinary bladder: Lozano catheter is in place in a decompressed urinary bladder. Reproductive Organs: Evidence of prostatectomy. Lymph Nodes: No enlarged lymph nodes. Bowel: Loops of small bowel are normal in caliber. Small amount retained fecal material is seen throu ghout the colon greater in the region of the rectum. There is evidence of colonic diverticulosis. Appendix: The appendix is normal in caliber. Peritoneum/retroperitoneum: There are punctate foci of free intraperitoneal gas seen within the anter ior aspect of the pelvis as well as in the anterior aspect of the right upper quadrant.. Minimal amount of free fluid is seen in the pelvis as well. Small amount of fluid is seen in a presacral loca tion. Vessels: Dense vascular calcifications are seen in the abdominal aorta and iliac arteries. The abdomi nal aorta near the level of the renal arteries measures 3 cm in greatest dimension.. Abdominal Wall: Small fat-containing left inguinal canal is present. There is subcutaneous edema seen . Bones: Degenerative changes are seen in the spine. Median sternotomy wires are partially imaged. IMPRESSION: 1.Foci of free intraperitoneal gas seen anteriorly within the abdomen as well as anteriorly within th e lower pelvis. Minimal amount of free fluid is seen in the pelvis. Findings are suggestive of bowel perforation; although, the exact site of perforation is unable to be determined based on this e xam. 2. Bibasilar lung changes with groundglass opacities likely attributable to patient's known history of Covid pneumonia. There is mild bronchiectasis and evidence of a small left pleural effusion. 3. Colonic diverticulosis. No obvious bowel wall thickening is present. Small amount retained fecal m aterial seen throughout the colon. 4. 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 5. Additional findings as described above. 6. Above findings discussed with Dr. Mcgill on 04/27/2020 at 1121 hours.
--- NOTE | 2020-04-27 11:33 | PRG ---
DATE OF SERVICE: 04/27/2020 SUBJECTIVE: Mr. Hill had good night overnight according to the nurse. He is still on 90% oxygen high flow through his nose. He is off BiPAP. Temperature is 97.6, heart rate is 87, blood pressure 123/87. Ins and outs, 593 in and 1490 out. Lozano 1490 overnight and it was 2065 on the 3rd. Mr. Hill is complaining of significant left lower quadrant pain today that is something new, the nurse said he was not doing that earlier today. On exam, he is nondistended. He has scant bowel sounds. He is tender in that area. He has no ecchymoses or subcutaneous bleeding. He has some mild guarding. LABORATORY DATA: White count is 14,000 today, yesterday it was 17; hemoglobin is 8.3 and stable; platelet count 143. Sodium 139, potassium 4.1, BUN and creatinine are 36 and 1.07. ASSESSMENT: 1. COVID pneumonia. 2. Acute hypoxic respiratory failure. Continuing oxygen requirements. Gastrointestinal blood loss, resolved and hemoglobin stable. On PPI, switch to q.12. 1. Left lower quadrant abdominal pain of unclear etiology. It seems his Lozano is working well. We will see if he has a bowel movement and goes away. If it does not, we will get a CAT scan to rule out any retroperitoneal bleeding. Job ID: [id number]
--- NOTE | 2020-04-27 12:04 | PDOC.HOSPP ---
- Subjective Encounter Date: 04/27/20 Encounter Time: 11:45 Subjective: was briefly back on bipap this am and now back to high flow confusion this am with abd pain no nausea - Objective Vital Signs & Weight: Vital Signs (12 hours) Temp Pulse Pulse Ox 04/27/20 08:00 97.6 F 98 04/27/20 07:42 108 H 04/27/20 03:00 98.6 F 04/27/20 01:31 88 Weight Admit Weight 182 lb Weight 190 lb 4.143 oz Most Recent Monitor Data Heart Rate from ECG 98 NIBP 117/66 NIBP BP-Mean 83 Respiration from ECG 23 SpO2 90 I&O: 04/26/20 04/27/20 04/28/20 06:59 06:59 06:59 Intake Total 541.8 593.2 0 Output Total 2065 1490 200 Balance -1523.2 -896.8 -200 Result Diagrams: 04/27/20 03:20 04/27/20 03:20 Additional Labs: Accuchecks 04/27/20 04/26/20 11:55 20:54 POC Glucose 106 H 168 H Hospitalist ROS - Medication Medications: Active Medications Generic Name Dose Route Start Last Admin Trade Name Freq PRN Reason Stop Dose Admin Ascorbic Acid 1,000 mg 04/19/20 09:00 04/27/20 09:00 Ascorbic Acid 500 Mg Chewable Tablet PO Not Given DAILY PATRICK Benzonatate 200 mg 04/12/20 12:57 04/13/20 20:27 Benzonatate 100 Mg Cap PO 200 mg Q6H PRN Administration Cough Guaifenesin/Dextromethorphan 15 ml 04/11/20 02:57 04/12/20 09:47 Guaifenesin Dm 100-10/5 Ml Udcup PO 15 ml Q4H PRN Administration Cough Dexmedetomidine HCl 400 mcg/ 100 mls @ 0 mls/hr 04/18/20 16:00 04/25/20 12:42 Sodium Chloride IVPB 100 mls INF PATRICK Administration Protocol Titrate Pantoprazole Sodium 80 mg/ 100 mls @ 10 mls/hr 04/18/20 20:00 04/26/20 02:09 Miscellaneous Medication 1 IVPB 100 mls each/ Sodium Chloride INF PATRICK Administration Sodium Chloride 1,000 mls @ 0 mls/hr 04/24/20 21:58 04/25/20 12:33 1/2 Normal Saline IV 1,000 mls .Q0M PATRICK Administration KVO Insulin Human Lispro 0 units 04/19/20 07:43 04/23/20 15:36 Humalog 300 Units/3 Ml Vial SC 2 units .MILD SLIDING SCALE PRN Administration Mild Correctional Scale Lorazepam 0.5 mg 04/21/20 02:47 04/27/20 02:45 Lorazepam 2 Mg/Ml Vial SLOW IVP 0.5 mg Q6H PRN Administration ANXIETY/AGITATION Methylprednisolone Sodium Succinate 40 mg 04/19/20 21:00 04/27/20 09:35 Methylprednisolone Sod Succ 40 Mg Vial IVP 40 mg BID PATRICK Administration Metoprolol Succinate 25 mg 04/12/20 09:00 04/27/20 09:00 Metoprolol Succinate Xl 25 Mg Tab PO Not Given DAILY PATRICK Pantoprazole Sodium 40 mg 04/26/20 14:00 04/27/20 05:13 Pantoprazole 40 Mg Vial IVP 40 mg 0600,1400 PATRICK Administration Senna/Docusate Sodium 1 tab 04/17/20 21:00 04/27/20 09:00 Senokot S 8.6-50 Mg Tab PO Not Given BID PATRICK Sodium Chloride 10 ml 04/26/20 21:00 04/27/20 09:00 Flush - Normal Saline 10 Ml Syringe IVF 10 ml Q12HR PATRICK Administration - Exam General Appearance: ill appearing Eye: PERRL, anicteric sclera ENT: no oropharyngeal lesions, dry oral mucosa Neck: supple, no JVD Heart: RRR, no murmur Respiratory: no wheezes, no rales, rhonchi Gastrointestinal: soft, tender to palpation Extremities: no cyanosis, no edema Neurological: cranial nerve grossly intact, no focal deficits Hosp A/P (1) Pneumonia due to COVID-19 virus Code(s): U07.1 - COVID-19; J12.89 - OTHER VIRAL PNEUMONIA Status: Acute (2) Acute respiratory failure with hypoxia Code(s): J96.01 - ACUTE RESPIRATORY FAILURE WITH HYPOXIA Status: Acute (3) GI bleed Code(s): K92.2 - GASTROINTESTINAL HEMORRHAGE, UNSPECIFIED Status: Resolved Qualifiers: GI bleed type/associated pathology: unspecified gastrointestinal hemorrhage type Qualified Code(s): K92.2 - Gastrointestinal hemorrhage, unspecified (4) Acute blood loss anemia Code(s): D62 - ACUTE POSTHEMORRHAGIC ANEMIA Status: Acute (5) CAD (coronary artery disease) Code(s): I25.10 - ATHSCL HEART DISEASE OF [place] CORONARY ARTERY W/O ANG PCTRS Status: Chronic Qualifiers: Coronary Disease-Associated Artery/Lesion type: bypass graft [place] vs. transplanted heart: [place] heart Associated angina: without angina Qualified Code(s): I25.810 - Atherosclerosis of coronary artery bypass graft(s) without angina pectoris (6) Perforated abdominal viscus Code(s): R19.8 - OTH SYMPTOMS AND SIGNS INVOLVING THE DGSTV SYS AND ABDOMEN Status: Acute - Plan has new findings of perforated viscus, for med mgmt, d/w . is on solumedrol, toprol xl has recieved remdesivir, convalescent plasma for covid is currently on high flow poor prognosis OOB to chair and mobilize as tolerated with high flow might need TPN/PPN if he is kept npo for perforation, will f/u with specialists
[2020-04-27] MEDS ORDERED: methylPREDNISolone Sod Succ 40 MG VIAL IVP SCH (12:45)
[2020-04-27] MEDS: Lactated Ringer's 1,000 ML IV SCH (13:05)
[2020-04-27] MEDS: Meropenem 500 MG in Sodium Chloride 0.9% 100 ML IVPB SCH ×2 (13:07→22:16)
[2020-04-27] MEDS ORDERED: Merrem (PEDI) 500 MG in Syringe 0 ML IVPB SCH (14:00)
--- NOTE | 2020-04-27 20:40 | CON ---
DATE OF CONSULTATION: 04/27/2020 CHIEF COMPLAINT: Free air in abdomen. HISTORY OF PRESENT ILLNESS: This is an 84-year-old male, who was admitted on April 10 with a week-long episode of COVID pneumonia or COVID infection. He became more short of breath, was requiring high-flow oxygen. CT scan showed ground-glass. He has had a previous colonoscopy in 2013. This morning, he was having some left lower quadrant abdominal pain and he has also had some drop in his hemoglobin over the last few days, he went from [address] scan showed some tiny little punctate air pockets and some free fluid in the pelvis, but no defined source. There were some diverticula seen in the colon. He has been on high-dose steroids. He has been on aspirin. He has been on anticoagulation. PAST MEDICAL HISTORY: Coronary artery disease, hypertension, and hyperlipidemia. PAST SURGICAL HISTORY: He has had coronary artery bypass graft. ALLERGIES: HE HAS NO KNOWN DRUG ALLERGIES. MEDICATIONS: Currently include; 1. Meropenem. 2. Methylprednisolone. 3. Protonix. 4. Aspirin. 5. Losartan. 6. Atorvastatin. 7. Allopurinol. 8. Metoprolol. 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 No tobacco. Occasional alcohol. PHYSICAL EXAMINATION: VITAL SIGNS: Temperature 97.6, pulse 107, and blood pressure 121/54. GENERAL: He is lethargic, but awake. He is on high-flow oxygen through nasal cannula. He speaks in short sentences due to shortness of breath. LUNGS: Clear. HEART: Regular rate and rhythm. ABDOMEN: Soft, very minimal tenderness in the left lower quadrant. EXTREMITIES: Unremarkable. LABORATORY DATA: His white count is 14, which is down from 21, H and H 8 and 25, and platelet count 143. Electrolytes, his CO2 is 21, but that is improved from 18 yesterday. ASSESSMENT AND PLAN: Perforated viscus, likely diverticulitis, possibly peptic ulcer. The patient is very high risk surgical candidate and really does not want to be intubated and there is real good chance he is down the ventilator postoperatively if he had surgery. He seems to be improving with the IV antibiotics. So, at this time, we were planning on discontinuing care as it is, no surgery planned unless there is a major change and there will be discussion with family and patient. We will follow with you. Job ID: [id number]
--- NOTE | 2020-04-27 20:57 | PRG ---
DATE OF SERVICE: 04/27/2020 TIME: 12 p.m. SUBJECTIVE: Mr. Hill did have his CT scan, and Dr. Esquivel called me from Radiology and notes that he had scant amount of free air. There is no overt inflammation in the abdominal cavity, but there are punctate foci of free intraperitoneal gas seen within the anterior aspect of the pelvis as well as the anterior aspect of the right upper quadrant. There is a minimal amount of free fluid in the pelvis seen. There is a small amount of free fluid in the presacral region. I performed a rectal exam on him as there seems to be a scant amount of stool in the colon, but a little bit more in the rectum, and this is soft and melenic as he has had previous melenic stools, but not for several days. There is no overt diverticulitis. There are prominent vascular calcifications of the abdominal vessels. ASSESSMENT: Free intraperitoneal air. I have discussed this with Pulmonary. They feel that he is a very poor candidate for the operating room and that he has a very small chance of leaving the hospital if he has to go on a ventilator. I have talked with the hospitalist as well. We are going to start him on meropenem and make him n.p.o. for now. I talked with Mr. Hill as well. We talked about the options of surgery and possible outcomes as well as the options of doing nothing and treating medically, which would not be the typical treatment, but in this setting, may be the best treatment. He stated that when faced with the issue of being on prolonged ventilation and possibly not being able to get off the ventilator, he does not want to go through things like that. I have talked with the patient's son as well and advised of this new development, which is very concerning to me and really recommended against surgery at this time as I do not think that he has much of a chance of survival if he ends up on the ventilator after conferring with lung specialist and the teacher selection specialist. We will get a surgical opinion. I have asked Dr. Freddie Gates to come and see him. PLAN: 1. Surgical consultation. 2. Continue IV PPIs. 3. N.p.o. for now. 4. We will add broad-spectrum antibiotics. 5. I did perform a digital exam with no signs of impaction. 6. We will await surgical opinion, but I think that it will probably be the same as the other physicians taking care of him, and we will have to talk to the family further from there. Job ID: [id number]
[2020-04-28] MEDS: Lactated Ringer's 1,000 ML IV SCH (03:01)
[2020-04-28 05:02] VITALS: TEMP 97.9
[2020-04-28] MEDS: Meropenem 500 MG in Sodium Chloride 0.9% 100 ML IVPB SCH (05:28)
[2020-04-28] MEDS: Pantoprazole 40 MG VIAL IVP SCH (05:28)
[2020-04-28 05:32] LABS: Band 6 % (5-11); Hemoglobin 8.4 g/dL (14.0-18.0); Lymphocytes 3 % (21-51); MDiff Complete? YES; Mean Corpuscular Hemoglobin 32.6 pg (27.0-31.0); Mean Corpuscular Volume 95.7 fL (78.0-98.0); Mean Platelet Volume 8.7 fL (7.4-10.4); Monocytes 2 % (0-10); Neutrophil 89 % (42-75); Platelet Count 108 thou/uL (130-400); Platelet Morphology Comment Appears Decreased; RBC Distribution Width 15.3 % (11.5-14.5); Red Blood Cell (RBC) Count 2.57 mill/uL (4.70-6.10)
[2020-04-28 06:01] LABS: Anion Gap 10 mmol/L (10-20); BUN (Urea Nitrogen) 30 mg/dL (8.4-25.7); Calc. Creatinine Clearance 78 mL/min (70-130); Calcium 7.6 mg/dL (7.8-10.44); Carbon Dioxide 22 mmol/L (23-31); Chloride 111 mmol/L (98-107); Estimated GFR-MDRD 87; Glucose 116 mg/dL (83-110); Potassium 4.2 mmol/L (3.5-5.1); Sodium 139 mmol/L (136-145)
[2020-04-28] MEDS ORDERED: D5W-AA 4.25% with LYTES 1,000 ML IV SCH (08:45)
--- NOTE | 2020-04-28 09:23 | PRG ---
DATE OF SERVICE: 04/28/2020 SUBJECTIVE: The patient feels much better. He says he really do not have any significant pain. No nausea or vomiting. OBJECTIVE: VITAL SIGNS: His temperature is 97.9, pulse 102, and blood pressure 150/71. GENERAL: He looks good. ABDOMEN: Soft and nontender. LABORATORY STUDIES: His white count is down to 9, hemoglobin and hematocrit 8.4 and 24, and platelet count 108. ASSESSMENT: Improved microperforated diverticulitis, on antibiotics, doing well. PLAN: Full liquid diet. Job ID: [id number]
[2020-04-28] MEDS: methylPREDNISolone Sod Succ 40 MG VIAL IVP SCH (09:36)
[2020-04-28] MEDS: Ascorbic Acid 500 mg Chewable Tablet PO SCH (09:37)
[2020-04-28] MEDS: Senokot S 8.6-50 MG TAB PO SCH (09:38)
--- NOTE | 2020-04-28 09:58 | PRG ---
DATE OF SERVICE: 04/28/2020 SUBJECTIVE: This morning, he is awake, alert, and responsive. Denies any abdominal pain or shortness of breath. OBJECTIVE: VITAL SIGNS: Temperature 97, blood pressure 150/71, pulse 100, respiratory rate 18, and saturations 90%. CHEST: Decreased breath sounds. No wheezing. CARDIAC: Normal S1 and S2. No gallops. ABDOMEN: Soft. NEUROLOGIC: He is awake and responsive. LABORATORY DATA: His white count 9000, H and H 8 and 24, and platelet count is 108. His lytes are normal. CT abdomen showed free air. ASSESSMENT AND PLAN: Respiratory failure, chronic obstructive pulmonary disease, underlying coronavirus pneumonia now negative, and prolonged hospitalization now with an acute abdomen. Family and patient do not want any surgical intervention. Comfort care has been initiated. General Surgery saw the patient today. They are holding off any kind of surgical intervention at this time. We may consider input from hospice as per family discussion. Otherwise, supportive care. He is on meropenem, steroids, and neb treatment. We will follow while in the ICU. Job ID: [id number]
[2020-04-28] MEDS: Lorazepam 2 MG/ML VIAL SLOW IVP PRN (12:02)
[2020-04-28] MEDS ORDERED: Morphine 4 MG/ML VIAL SLOW IVP PRN (12:15)
[2020-04-28 12:17] VITALS: BP 149/72
--- NOTE | 2020-04-28 13:28 | PDOC.PALPN ---
Palliative Progress Note - Subjective Family to bedside, patient requesting to transition to comfort care. - Objective Vital Signs: Vital Signs - Most Recent Temp Pulse Resp BP Pulse Ox 97.9 F 124 H 22 H 149/72 H 86 L 04/28/20 08:00 04/28/20 11:05 04/24/20 07:38 04/28/20 09:52 04/28/20 09:52 - Physical Exam Constitutional: ill appearing, mild distress HEENT: EOMI, moist MMs, sclera anicteric Respiratory: no wheezing, accessory muscle use, diminished lung sound, labored respirations Cardiovascular: RRR Gastrointestinal: soft, non-tender, positive bowel sounds Genitourinary: flores catheter Musculoskeletal: no clubbing, diffuse muscle atrophy Neurology: moves all 4 limbs, no focal deficits Skin: cap refill <2 seconds Psychiatric: A&O x 3 - Plan Plan Patient requesting to transition to comfort measures. Ativan given, morphine for symptom management. DNAR Please also refer to Palliative Care notes in note section. Jony Bain RNband edger communicated with Dr Amanda [30] minutes spent on this encounter with >50% of the time in counseling and coordination of care. - ROS Constitutional: alert, weakness Respiratory: shortness of breath, shortness of breath with extertion Cardiology: other (Denies chest pain, palpitations) Musculoskeletal: arthritis/arthralgias
--- NOTE | 2020-04-28 13:51 | PRG ---
DATE OF SERVICE: 04/28/2020 TIME: 7:30 a.m. SUBJECTIVE: Mr. Hill is resting in bed. He is sleeping. He is on high-flow nasal oxygen. Arousal. Notes the stomach does not hurt today. Nurses note no bleeding overnight or fever. OBJECTIVE: VITAL SIGNS: Pulse 80s to 90s overnight, blood pressure is 130s/60s overnight, temperature 97.9, bladder temperature 98.4. GENERAL: Mr. Hill is able to converse. He recognizes me. ABDOMEN: Soft, nontender today. No tenderness in the lower abdomen specifically. LABORATORY DATA: White count 9, hemoglobin 8.4, platelet count 108. Sodium 139, potassium 4.2, BUN and creatinine 10 and 0.8. ASSESSMENT: Free air in the abdomen of unclear etiology; tenderness noted yesterday, was not there today. Differential diagnosis includes a small perforated diverticula in lower abdomen and tenderness in lower abdomen versus perforated ulcers. The patient had GI bleeding earlier this admission. No signs of bleeding at this time. No signs of sepsis at this time. PLAN: We will institute some peripheral nutrition currently. We will stop his IV fluid. We will defer to General Surgery on when to start feeding. We will continue IV PPIs. Job ID: [id number]
--- NOTE | 2020-04-28 14:54 | DIS ---
DATE OF ADMISSION: 04/10/2020 DATE OF DISCHARGE: 04/28/2020 SUMMARY: DATE OF : 04/28/2020 at 12:31 p.m. PRIMARY CAUSE OF : COVID-19 pneumonia with acute respiratory failure with hypoxia from last 29 days, perforated viscus from unknown cause one day. FACTORS CONTRIBUTING TO : GI bleed, acute blood loss anemia, coronary artery disease, deconditioning. BRIEF COURSE DURING HOSPITALIZATION: The patient initially got admitted on the 10 of April with complaints of shortness of breath. He was diagnosed with COVID-19 viral infection 7 days prior to arrival here. He was also in acute respiratory failure with hypoxia. He was admitted to ICU. The patient was on high-flow oxygen. He received a full course of remdesivir, convalescent plasma, and was on steroids. He has had off and on BiPAP placement as well. During the course of his stay, the patient was found to have had GI bleed. This was managed medically with H and H remaining stable. He received a total of 5 units of packed cell transfusion during his stay. On 04/27/2020, the patient developed left lower quadrant pain with tenderness on clinical exam. A CT of the abdomen and pelvis was obtained which showed free air. The patient likely had perforated viscus and was kept n.p.o. This morning around 11:30, the patient went into respiratory distress and the family did not want any aggressive measures done. They made him do not attempt to resuscitate from do not intubate previously. He got a dose of Ativan. Around 12:25, he went into agonal breathing and went into asystole around 12:31 p.m. He was pronounced at 12:31 p.m. His family was his bedside including . His body will be released to home and family per hospital protocol. The patient was not a candidate for surgery for perforated viscus with multiple medical issues and him being on high-flow oxygen with off and on BiPAP and the patient did not wanting intubation which he would have likely ended up on postprocedure. Job ID: [id number]
== END 2020-04-28 12:31 | disposition expired | DRG 177 ==
LOC: ERS 15:15 → T4-A 17:40 → T4-B 04-12 04:16 → IMCU/EMU 04-16 11:54 → CCU 04-18 18:43
PROVIDERS: ADMIT Student in an Organized Health Care Education/Training Program; ATTEND Student in an Organized Health Care Education/Training Program
PROC: 8E0ZXY6 Isolation (ICD-10-PCS; 2020-04-10)
PROC: XW033E5 Introduction of Remdesivir Anti-infective into Peripheral Vein, Percutaneous Approach, New Technology Group 5 (ICD-10-PCS; principal; 2020-04-11)
PROC: XW13325 Transfusion of Convalescent Plasma (Nonautologous) into Peripheral Vein, Percutaneous Approach, New Technology Group 5 (ICD-10-PCS; 2020-04-12)
PROC: 30233N1 Transfusion of Nonautologous Red Blood Cells into Peripheral Vein, Percutaneous Approach (ICD-10-PCS; 2020-04-18)
PROC: 0T9B70Z Drainage of Bladder with Drainage Device, Via Natural or Artificial Opening (ICD-10-PCS; 2020-04-18)
PROC: 5A09357 Assistance with Respiratory Ventilation, Less than 24 Consecutive Hours, Continuous Positive Airway Pressure (ICD-10-PCS; 2020-04-18)
DX: U07.1 COVID-19 (principal); J12.89 Other viral pneumonia; J96.01 Acute respiratory failure with hypoxia; F05 Delirium due to known physiological condition; N17.9 Acute kidney failure, unspecified; D62 Acute posthemorrhagic anemia; K92.1 Melena; G93.49 Other encephalopathy; K57.20 Diverticulitis of large intestine with perforation and abscess without bleeding; J44.0 Chronic obstructive pulmonary disease with (acute) lower respiratory infection; Z51.5 Encounter for palliative care; Z66 Do not resuscitate; I25.10 Atherosclerotic heart disease of native coronary artery without angina pectoris; E78.5 Hyperlipidemia, unspecified; N18.30 Chronic kidney disease, stage 3 unspecified; I12.9 Hypertensive chronic kidney disease with stage 1 through stage 4 chronic kidney disease, or unspecified chronic kidney disease; I95.9 Hypotension, unspecified; E87.71 Transfusion associated circulatory overload; R40.2134 Coma scale, eyes open, to sound, 24 hours or more after hospital admission; R40.2244 Coma scale, best verbal response, confused conversation, 24 hours or more after hospital admission; R40.2354 Coma scale, best motor response, localizes pain, 24 hours or more after hospital admission; Z78.1 Physical restraint status; Z79.899 Other long term (current) drug therapy; Z95.1 Presence of aortocoronary bypass graft; Z79.82 Long term (current) use of aspirin; Z86.010 Personal history of colon polyps
CPT/HCPCS: 36415; 36416; 36430; 36600; 71045; 71275; 74176; 80048; 80053; 80076; 82728; 82805; 83036; 83880; 84484; 85007; 85014; 85018; 85025; 85027; 85049; 85379; 86140; 86850; 86870; 86900; 86901; 86921; 87040; 87086; 87149; 93005; 93010; 94660; 96361; 96365; 96366; 96375; C9113; J0456; J0696; J1100; J1170; J1650; J1940; J1956; J2060; J2185; J2920; J2930; J3490; J7030; J7050; P9016; P9017; Q9967